=== PATIENT | male | born 1935 | race Caucasian/White ===

== ENCOUNTER 2022-05-09 12:05 | Outpatient (RCR) | payer MEDICARE, SELFPAY ==
--- NOTE | ~2022-05-09 | XR_ITS ---
EXAMINATION: XR CALCANEUS, RIGHT CLINICAL INFORMATION: Nonhealing wound. Assess for osteomyelitis. COMPARISON: None available. TECHNIQUE: The right calcaneus is imaged and Albrecht and lateral views for a total of 2 views. FINDINGS: There is normal bony mineralization. No focal bony destructive process or periostitis. There is a posterior and small plantar calcaneal spurs. There is no acute or healing fracture. No gas tracking in soft tissue planes on lateral view. There is probable soft tissue dressing overlying the posterior inferior heel. XR/XR calcaneus RT min 2V IMPRESSION: - No focal bony destructive process or periostitis.
== END 2022-10-02 16:00 | disposition home or self-care (01) ==
LOC: HO.WCC 12:05
PROVIDERS: PCP Family Medicine; Visit Provider Physician Assistant
DX: E11.621 Type 2 diabetes mellitus with foot ulcer (principal); E11.51 Type 2 diabetes mellitus with diabetic peripheral angiopathy without gangrene; L89.613 Pressure ulcer of right heel, stage 3; R60.0 Localized edema; E11.40 Type 2 diabetes mellitus with diabetic neuropathy, unspecified; I10 Essential (primary) hypertension; Z89.512 Acquired absence of left leg below knee; Z87.891 Personal history of nicotine dependence; Z92.3 Personal history of irradiation; Z92.21 Personal history of antineoplastic chemotherapy
CPT/HCPCS: 11042; 11045; 73650; 87070; 87073; 87076; 87205; 97597; 97598; 99213

== ENCOUNTER 2022-06-02 14:00 | Outpatient (REF) | payer MEDICARE, SELFPAY ==
--- NOTE | ~2022-06-02 | US_ITS ---
EXAMINATION: ANKLE-BRACHIAL INDEX SINGLE LEVEL PULSE VOLUME RECORDING ARTERIAL DUPLEX RIGHT LEG CLINICAL INFORMATION: Nonpressured chronic ulcer of other part of right foot with fat layer exposed. Diabetes. COMPARISON: None TECHNIQUE: Ankle-brachial index and PVR at the right ankle were obtained. Duplex Doppler of the right lower extremity arterial system was performed. FINDINGS: RIGHT: Ankle-brachial index: 1.0. However, the pressures measured greater than 200 mmHg consistent with calcified and noncompressible vessels. The NIKKI may not be reliable. PVR: Abnormal Common femoral: PSV 119 cm/s. Triphasic waveform. Deep femoral: PSV 29 cm/s. Monophasic waveform. Proximal superficial femoral: PSV 117 cm/s. Biphasic waveform. Mid superficial femoral: PSV 93 cm/s. Monophasic waveform. Distal superficial femoral: PSV 75 cm/s. Biphasic waveform. Popliteal: PSV 51 cm/s. Monophasic waveform. Posterior tibial: PSV 87 cm/s. Monophasic waveform. Peroneal: Not visible. US/US arterial duplex LE RT IMPRESSION: Ankle-brachial index is 1.0, however the pressures measured greater than 200 mmHg consistent with calcified noncompressible vessels making the NIKKI unreliable. The pulse volume recording is abnormal. There is hemodynamically significant femoropopliteal level disease by Doppler.
== END 2022-06-02 14:01 | disposition home or self-care (01) ==
LOC: HO.US 14:00
PROVIDERS: PCP Family Medicine; Visit Provider Physician Assistant
DX: E11.621 Type 2 diabetes mellitus with foot ulcer (principal); L97.512 Non-pressure chronic ulcer of other part of right foot with fat layer exposed
CPT/HCPCS: 93926

== ENCOUNTER 2022-09-25 16:57 | Inpatient (IN) | payer MEDICARE, SELFPAY ==
--- NOTE | 2022-09-25 | ECG_ITS ---
Test Reason : FEVER Blood Pressure : / mmHG Vent. Rate : 078 BPM Atrial Rate : 000 BPM P-R Int : 000 ms QRS Dur : 084 ms QT Int : 374 ms P-R-T Axes : 000 021 029 degrees QTc Int : 426 ms Atrial fibrillation Low voltage QRS Septal infarct , age undetermined Abnormal ECG No previous ECGs available Referred By: Generic ED Physician Electronically Signed By:
--- NOTE | ~2022-09-25 | US_ITS ---
EXAMINATION: NONINVASIVE ASSESSMENT OF THE RIGHT LOWER EXTREMITY DUPLEX. CLINICAL INFORMATION: Nonhealing wound COMPARISON: Arterial duplex on 06/02/2022 TECHNIQUE: duplex Doppler techniques with wave form analysis and measurement of velocities in the right common femoral, profunda femoral, superficial femoral, popliteal, tibial and peroneal arteries. The study was performed only at rest. FINDINGS: RIGHT LEG Common femoral artery: 175 cm/s, Multiphasic Profunda femoris artery: 104 cm/s, monophasic Superficial femoral artery (proximal): 121 cm/s, monophasic Superficial femoral artery (mid): 144 cm/s, monophasic Superficial femoral artery (distal): 90 cm/s, monophasic Proximal Popliteal artery: 99.3 cm/s, monophasic Mid posterior tibial artery: 52.9 cm/s, monophasic Incidental note is made of arrhythmia US/US arterial duplex LE RT IMPRESSION: 1. Monophasic flow throughout the right lower extremity suggesting inflow disease. 2. Elevated velocities in the common femoral artery and mid superficial femoral artery suggesting mild stenoses.
--- NOTE | ~2022-09-25 | US_ITS ---
EXAMINATION: US VENOUS ULTRASOUND WITH DOPPLER LOWER EXTREMITY, RIGHT CLINICAL INFORMATION: Pain. COMPARISON: None available. TECHNIQUE: Ultrasound of the deep veins is performed from the hip to the calf with compression sonography and color and pulse Doppler assessment. Spectral analysis with color-flow imaging is performed. FINDINGS: There is normal venous compression and respiratory variation and augmented flow. The visualized common femoral vein, superficial femoral vein, profunda femoral vein, popliteal vein, and the trifurcation region shows no evidence of deep venous thrombosis. The posterior tibial vein in the calf is normal. The peroneal vein is not seen. There is no significant popliteal fossa cyst. If the patient's symptoms persist, followup ultrasound in 5 days 7 days might be of value to exclude proximal propagation from a non-visualized calf vein. US/US venous duplex LE RT IMPRESSION: No DVT demonstrated in the right lower extremity.
--- NOTE | ~2022-09-25 | XR_ITS ---
EXAMINATION: XR CHEST CLINICAL INFORMATION: Hypoxia. COMPARISON: None available. TECHNIQUE: Frontal portable view of the chest was obtained. 6:21 PM FINDINGS: Lungs are clear. No pulmonary vascular congestion. There is no pleural effusion. The heart size is normal. The cardiac and mediastinal contours are normal. There are multilevel degenerative changes of dorsal spine. XR/XR chest 1V IMPRESSION: Unremarkable examination.
--- NOTE | ~2022-09-25 | XR_ITS ---
EXAMINATION: XR CALCANEUS, RIGHT CLINICAL INFORMATION: Evaluate for osteomyelitis. COMPARISON: 08/05/2022. TECHNIQUE: Lateral and axial views of the right calcaneus were obtained. FINDINGS: Large ulcer adjacent to the posterior and inferior surface of the calcaneus with associated cortical irregularity and bony lucency along the inferoposterior surface of the calcaneus, concerning for osteomyelitis. No displaced fractures. Extensive vascular calcifications. XR/XR calcaneus RT min 2V IMPRESSION: Large ulcer adjacent to the calcaneus with associated cortical irregularity and bony lucency along the inferoposterior surface of the calcaneus concerning for osteomyelitis. Further imaging with MRI could be obtained as clinically indicated.
[2022-09-25 17:09] VITALS: BP 134/54; BP 156/60; PULSE 85; PULSE 91; RESP 14; TEMP 38.1; O2SAT 92; BMI 27.3
[2022-09-25 17:27] VITALS: BP 113/49; PULSE 84; RESP 15; TEMP 38; O2SAT 95
[2022-09-25 18:20] LABS: Hematocrit 26.7 % (42.0-52.0); Hemoglobin 8.4 g/dl (14.0-18.0); Mean Corpuscular HGB Conc 31.5 g/dl (31.0-36.0); Mean Corpuscular Hemoglobin 26.4 pg (27.0-33.0); Mean Platelet Volume 8.9 fL (9.4-12.4); Platelet Count 354 X10*3/uL (160-400); Red Blood Count 3.18 X10*6/uL (4.60-5.80); Red Cell Distribution Width 14.6 % (11.0-16.0); White Blood Count 10.8 X10*3/uL (4.8-10.8)
[2022-09-25 18:28] LABS: INTERNATIONAL NORM RATIO 1.3 (0.9-1.1); Prothrombin Time 15.3 SEC (10.0-13.1)
[2022-09-25 18:33] LABS: Lactic Acid 1.1 mmol/L (0.5-2.0)
[2022-09-25 18:37] LABS: Alanine Aminotransferase 17 U/L (0-40); Albumin Level 3.3 g/dL (3.5-5.0); Alkaline Phosphatase 80 U/L (39-117); Anion Gap 13 (12-20); Aspartate Amino Transferase 23 U/L (5-37); Bilirubin Total 0.4 mg/dL (0.0-1.0); Blood Urea Nitrogen 25 mg/dL (9-16); Calcium 8.9 mg/dL (8.4-10.2); Carbon Dioxide 25 mmol/L (22-29); Chloride 102 mmol/L (96-108); Creatinine Clr Calc Pharmacy 56.9; Estimated Glomerular Filt Rate > 60; Glucose Random 121 mg/dL (60-115); Potassium 4.6 mmol/L (3.3-5.1); Sodium 135 mmol/L (135-145); Total Protein 7.1 g/dL (6.5-8.0)
--- NOTE | 2022-09-25 18:45 | ED_ITS ---
HPI - General Adult General Chief complaint: Wound/Laceration Stated complaint: INFECTED WOUND ON ANKLE Time Seen by Provider: 09/25/22 18:12 Source: patient, family (), RN notes reviewed and old records reviewed Limitations: no limitations History of Present Illness HPI narrative: 87-year-old male past medical history significant for diabetes, peripheral vascular disease, chronic right heel ulcer presents for evaluation of weakness Per the patient's he has had increasing weakness for last few days Patient was found have a temperature of 102.4? by EMS. The patient reports some pain to his right heel which she feels is chronic and unchanged There is some redness to the area and swelling around the area as well as foul-smelling drainage Patient's is concerned about UTI The patient reports that he feels well and does not know why he is in the hospital at this time He follows wound care for his right heel wound Related Data Home Medications Medication Instructions Recorded Confirmed atorvastatin 10 mg tablet 10 mg PO DAILY 09/25/22 09/25/22 clopidogrel 75 mg tablet 75 mg PO DAILY 09/25/22 09/25/22 collagenase clostridium histo. 250 1 appl topical DAILY 09/25/22 09/25/22 unit/gram topical ointment (Santyl) furosemide 20 mg tablet 20 mg PO DAILY 09/25/22 09/25/22 hydrocodone 10 mg-acetaminophen 1 tab PO QID PRN pain 09/25/22 09/25/22 325 mg tablet insulin aspart U-100 100 unit/mL See Protocol subcut TIDAC 09/25/22 09/25/22 (3 mL) subcutaneous pen (Novolog FlexPen U-100 Insulin aspart) insulin glargine-yfgn 100 unit/mL 6 unit subcut BEDTIME 09/25/22 09/25/22 (3 mL) subcutaneous pen (Semglee (insulin glargine-yfgn) Pen) metformin 1,000 mg tablet 1,000 mg PO BID 09/25/22 09/25/22 tamsulosin 0.4 mg capsule 0.4 mg PO DAILY 09/25/22 09/25/22 Allergies Allergy/AdvReac Type Severity Reaction Status Date / Time No Known Allergies Allergy Verified 09/25/22 17:49 Review of Systems Constitutional: Constitutional: Denies chills, Reports fever(s) and Reports weakness Cardiovascular: Cardiovascular: Denies chest pain and Denies dyspnea Respiratory: Respiratory: Denies cough and Denies dyspnea Gastrointestinal: Gastrointestinal: Denies abdominal pain, Denies diarrhea, Denies nausea and Denies vomiting Genitourinary: Genitourinary: Reports nocturia Musculoskeletal: Musculoskeletal: Denies back pain Integumentary/Breasts: Skin/Breast: Reports erythema, Reports skin ulcer, Reports sores and Reports wounds Neurologic: Reports weakness PMFSH Past Medical History Medical History BPH (benign prostatic hyperplasia) Chronic low back pain Hyperlipidemia Peripheral arterial disease Type 2 diabetes mellitus Social History Social History Household Members: Spouse Housing: Condominium Do you presently have visiting nurse or other home services: No Alcohol intake: current Alcohol intake frequency: holidays/special occasions only Patient Tobacco Use Status: Never used Tobacco Physical Exam ED Vital Signs: Vital Signs - 24 hr 09/25/22 17:09 09/25/22 17:27 09/25/22 19:38 Temperature 100.5 F H 100.4 F 98.3 F Pulse Rate 85 84 72 Respiratory Rate 14 15 16 Blood Pressure 134/54 L 113/49 L 168/69 H Pulse Oximetry 92 95 98 Oxygen Delivery Method Room Air Room Air Room Air BMI result Body Mass Index 27.3 Const General: healthy appearing, comfortable, no acute distress, alert and awake Nutritional Appearance: well nourished Orientation/consciousness: patient oriented x3 HENMT Head: Yes normocephalic and Yes atraumatic Eyes Eyelids: Yes eyelids normal Conjunctivae: conjunctivae normal Sclerae: sclerae normal Corneas: corneas normal Pupils: Equal, round and reactive pupils present EOM: EOMs intact bilaterally Neck Neck: Yes full ROM Resp Effort & Inspection: normal respiratory effort, able to speak in complete sentences and not labored Cardio Rate: regular rate Rhythm: regular rhythm GI Inspection: No distended Palpation (GI): Soft to palpation, not firm, Tenderness to palpation present (GI) in the RLQ and in the RUQ, no guarding and not rigid Auscultation: normoactive bowel sounds Skin Other: Patient has a large approximately 6 cm unstageable ulcer to the right calcaneus. It is unstageable due to large eschar with foul-smelling drainage. There is some surrounding erythema and edema to the right foot. There is some calf tenderness on the right Neuro General: patient oriented x3 Cranial nerves: Yes CN's II-XII intact bilaterally, Yes Equal, round and react tayler pupils present and Yes Bilaterally intact EOM present Cognition (Neuro): normal cognition Extrem Other: Left BKA Medications Administered Generic Name Dose Route Start Last Admin Trade Name Hai PRN Reason Stop Dose Admin Hydrocodone Bitart/Acetaminophen 1 tab 09/25/22 21:32 09/25/22 23:00 Hydrocodone Bit/Acetam 10/325 Tablet PO 1 tab QID PRN Administration Pain, Severe (Pain Scale 7-10) Heparin Sodium (Porcine) 5,000 unit 09/25/22 20:15 09/25/22 22:53 Heparin Sodium,Porcine 5,000 Unit/Ml Vial SUBCUT 5,000 unit Q12H RANDAL Administration Cefepime HCl 2 gm/ Sodium 50 mls @ 100 mls/hr 09/25/22 23:00 09/26/22 00:18 Chloride IV Infused Q12H RANDAL Infusion Insulin Human Lispro 0 unit 09/25/22 21:00 09/25/22 22:26 Insulin Lispro 100 Unit/Ml 3 Ml Vial SUBCUT Not Given QIDACHS [facility] Protocol Non-Formulary Medication 4 unit 09/25/22 21:45 09/25/22 23:00 Insulin Glargine-Yfgn [Semglee(Insulin Glarg-Yfgn)Pen] SUBCUT Not Given BEDTIME RANDAL Discontinued Medications Generic Name Dose Route Start Last Admin Trade Name Hai PRN Reason Stop Dose Admin Acetaminophen 975 mg 09/25/22 18:42 09/25/22 21:43 Acetaminophen 325 Mg Tablet PO 09/25/22 18:43 975 mg ONCE ONE Administration Hydrocodone Bitart/Acetaminophen 1 tab 09/25/22 20:06 09/25/22 22:50 Hydrocodone Bit/Acetam 10/325 Tablet PO 09/25/22 20:07 Not Given ONCE ONE Sodium Chloride 1,000 mls @ 999 mls/hr 09/25/22 18:45 09/26/22 00:06 Ns IV 09/25/22 19:45 Infused .Q1H1M RANDAL Infusion Vancomycin HCl 1,500 mg/ 500 mls @ 333.333 mls/hr 09/25/22 19:01 09/25/22 23:30 Sodium Chloride IV 09/25/22 20:30 Infused ONCE ONE Infusion Medical Decision Making Medical Decision Making MDM Narrative: 87-year-old male presents for evaluation of weakness. He is found have a fever by EMS which is confirmed in the ER 100.5. He will be treated with Tylenol and IV fluids. Workup pending to determine source. He has a chronic wound to his right heel with foul-smelling drainage and some edema, this could be the source infection. Will also get a UA, chest x-ray and viral panel. Patient denies any GI symptoms. He does have mild tenderness in the right mid abdomen from a previous surgery which he feels is chronic and unchanged. Differential Diagnosis Differential Diagnoses: The differential diagnosis associated with the presentation includes Sepsis Cellulitis Osteomyelitis Chronic wound UTI Pyelonephritis Pneumonia Viral syndrome Lab Data 09/25/22 18:11 09/25/22 18:11 Labs: Lab Results 09/25/22 09/25/22 09/25/22 Range/Units 18:11 18:11 18:12 WBC 10.8 (4.8-10.8) X10*3/uL RBC 3.18 L (4.60-5.80) X10*6/uL Hgb 8.4 L (14.0-18.0) g/dl Hct 26.7 L (42.0-52.0) % MCV 84.0 (80.0-98.0) fL MCH 26.4 L (27.0-33.0) pg MCHC 31.5 (31.0-36.0) g/dl RDW 14.6 (11.0-16.0) % Plt Count 354 (160-400) X10*3/uL MPV 8.9 L (9.4-12.4) fL Absolute Nucleated RBC 0.000 (0.0-0.012) X10*3/uL Nucleated RBC % (auto) 0.0 (0.0-0.2) /100WBC ESR (0-15) MM/HR PT (10.0-13.1) SEC INR (0.9-1.1) Sodium 135 (135-145) mmol/L Potassium 4.6 (3.3-5.1) mmol/L Chloride 102 (96-108) mmol/L Carbon Dioxide 25 (22-29) mmol/L Anion Gap 13 (12-20) BUN 25 H (9-16) mg/dL Creatinine 0.98 (0.5-1.4) mg/dL Estim Creat Clear Calc 56.9 Estimated GFR > 60 Random Glucose 121 H (60-115) mg/dL Lactic Acid 1.1 (0.5-2.0) mmol/L Calcium 8.9 (8.4-10.2) mg/dL Total Bilirubin 0.4 (0.0-1.0) mg/dL AST 23 (5-37) U/L ALT 17 (0-40) U/L Alkaline Phosphatase 80 (39-117) U/L C-Reactive Protein 11.87 H (< or = 0.50) mg/dL Total Protein 7.1 (6.5-8.0) g/dL Albumin 3.3 L (3.5-5.0) g/dL Urine Color Urine Appearance Urine pH (5.0-9.0) Ur Specific [place] (1.005-1.025) Urine Protein (Neg-Trace) mg/dL Urine Glucose (UA) (Negative) mg/dL Urine Ketones (Negative) mg/dL Urine Blood (Negative) Urine Nitrite (Negative) Ur Leukocyte Esterase (Negative) Urine RBC (0-2) /HPF Urine WBC (0-5) /HPF Ur Squamous Epith Cells (0-2) /HPF Urine Bacteria (None Seen) Hyaline Casts (0-2) /LPF Influenza Type A (PCR) (Negative) Influenza Type B (PCR) (Negative) RSV RNA Qual (PCR) (Negative) SARS-CoV-2 RNA (RT-PCR) (Negative) 09/25/22 09/25/22 09/25/22 Range/Units 18:12 18:54 19:52 WBC (4.8-10.8) X10*3/uL RBC (4.60-5.80) X10*6/uL Hgb (14.0-18.0) g/dl Hct (42.0-52.0) % MCV (80.0-98.0) fL MCH (27.0-33.0) pg MCHC (31.0-36.0) g/dl RDW (11.0-16.0) % Plt Count (160-400) X10*3/uL MPV (9.4-12.4) fL Absolute Nucleated RBC (0.0-0.012) X10*3/uL Nucleated RBC % (auto) (0.0-0.2) /100WBC ESR 105 H (0-15) MM/HR PT 15.3 H (10.0-13.1) SEC INR 1.3 H (0.9-1.1) Sodium (135-145) mmol/L Potassium (3.3-5.1) mmol/L Chloride (96-108) mmol/L Carbon Dioxide (22-29) mmol/L Anion Gap (12-20) BUN (9-16) mg/dL Creatinine (0.5-1.4) mg/dL Estim Creat Clear Calc Estimated GFR Random Glucose (60-115) mg/dL Lactic Acid (0.5-2.0) mmol/L Calcium (8.4-10.2) mg/dL Total Bilirubin (0.0-1.0) mg/dL AST (5-37) U/L ALT (0-40) U/L Alkaline Phosphatase (39-117) U/L C-Reactive Protein (< or = 0.50) mg/dL Total Protein (6.5-8.0) g/dL Albumin (3.5-5.0) g/dL Urine Color Yellow Urine Appearance Clear Urine pH 6.0 (5.0-9.0) Ur Specific [place] 1.010 (1.005-1.025) Urine Protein 100 (2+) H (Neg-Trace) mg/dL Urine Glucose (UA) Negative (Negative) mg/dL Urine Ketones Negative (Negative) mg/dL Urine Blood Trace H (Negative) Urine Nitrite Negative (Negative) Ur Leukocyte Esterase Negative (Negative) Urine RBC 0-2 (0-2) /HPF Urine WBC 0-5 (0-5) /HPF Ur Squamous Epith Cells 0-2 (0-2) /HPF Urine Bacteria None Seen (None Seen) Hyaline Casts 0-2 (0-2) /LPF Influenza Type A (PCR) (Negative) Influenza Type B (PCR) (Negative) RSV RNA Qual (PCR) (Negative) SARS-CoV-2 RNA (RT-PCR) (Negative) 09/25/22 Range/Units 19:52 WBC (4.8-10.8) X10*3/uL RBC (4.60-5.80) X10*6/uL Hgb (14.0-18.0) g/dl Hct (42.0-52.0) % MCV (80.0-98.0) fL MCH (27.0-33.0) pg MCHC (31.0-36.0) g/dl RDW (11.0-16.0) % Plt Count (160-400) X10*3/uL MPV (9.4-12.4) fL Absolute Nucleated RBC (0.0-0.012) X10*3/uL Nucleated RBC % (auto) (0.0-0.2) /100WBC ESR (0-15) MM/HR PT (10.0-13.1) SEC INR (0.9-1.1) Sodium (135-145) mmol/L Potassium (3.3-5.1) mmol/L Chloride (96-108) mmol/L Carbon Dioxide (22-29) mmol/L Anion Gap (12-20) BUN (9-16) mg/dL Creatinine (0.5-1.4) mg/dL Estim Creat Clear Calc Estimated GFR Random Glucose (60-115) mg/dL Lactic Acid (0.5-2.0) mmol/L Calcium (8.4-10.2) mg/dL Total Bilirubin (0.0-1.0) mg/dL AST (5-37) U/L ALT (0-40) U/L Alkaline Phosphatase (39-117) U/L C-Reactive Protein (< or = 0.50) mg/dL Total Protein (6.5-8.0) g/dL Albumin (3.5-5.0) g/dL Urine Color Urine Appearance Urine pH (5.0-9.0) Ur Specific [place] (1.005-1.025) Urine Protein (Neg-Trace) mg/dL Urine Glucose (UA) (Negative) mg/dL Urine Ketones (Negative) mg/dL Urine Blood (Negative) Urine Nitrite (Negative) Ur Leukocyte Esterase (Negative) Urine RBC (0-2) /HPF Urine WBC (0-5) /HPF Ur Squamous Epith Cells (0-2) /HPF Urine Bacteria (None Seen) Hyaline Casts (0-2) /LPF Influenza Type A (PCR) NEGATIVE (Negative) Influenza Type B (PCR) NEGATIVE (Negative) RSV RNA Qual (PCR) NEGATIVE (Negative) SARS-CoV-2 RNA (RT-PCR) NEGATIVE (Negative) Discharge Plan Discharge Clinical Impression: Nonhealing ulcer of heel Osteomyelitis of right foot Qualifiers: Osteomyelitis type: other acute Qualified Code(s): M86.171 - Other acute osteomyelitis, right ankle and foot Patient Disposition: Admitted As Inpatient Interventions: Admission Worksheet (ED) Last Done: 09/25/22 22:14 Discharge Date/Time: 09/25/22 22:05
[2022-09-25 19:01] LABS: Appearance Urine Clear; Color Urine Yellow; Glucose Urine UA Negative (Negative); Leukocyte Esterase Urine Negative (Negative); Nitrite Urine Negative (Negative); UMIC TRIGGER UACC YES; Urine Blood Trace (Negative); Urine Ketones Negative (Negative); Urine Protein 100 (2+) mg/dL (Neg-Trace)
[2022-09-25 19:06] LABS: Bacteria Urine None Seen (None Seen); Hyaline Casts Urine 0-2 /LPF (0-2); RBC Urine 0-2 /HPF (0-2); Squamous Epithelial Cell Urine 0-2 /HPF (0-2); WBC Urine 0-5 /HPF (0-5)
[2022-09-25 19:38] VITALS: BP 168/69; PULSE 72; RESP 16; TEMP 36.8; O2SAT 98
[2022-09-25 19:43] LABS: C Reactive Protein 11.87 mg/dL (< or = 0.50)
--- NOTE | 2022-09-25 19:58 | MHC.EDTECH ---
ESR BLOOD DRAWN RSV/FLU/SARS SWAB WARM BLANKET GIVEN ,VITALS SIGN TAKEN ,PATIENT IN GOOD SPRITS AND IS RESTING QUIETLY IN BED . COLLECTED AND SENT TO LAB ,PATIENT BELONGINGS LIST DONE ,PATIENT VOID 300 ML IN URINAL ,
--- NOTE | 2022-09-25 20:15 | P.HPHOSP_ITS ---
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 He states he is here at his 's request. He has been following with [facility] wound clinic for the heel. Per EMS patient was febrile to 102.5. On arrival, febrile to 100.5, vitals otherwise stable. There is no leukocytosis, normocytic anemia with H/H 8.4/26.7%. Renal function normal, electrolyte levels normal. Lactic acid 1.1. CRP 11.87, ESR pending. Urinalysis significant for 2+ protein, otherwise unremarkable. Chest x-ray negative for acute cardiopulmonary abnormality. X-ray of the right foot shows large ulcer adjacent to the calcaneus with associated cortical irregularity and bony lucency along the inferior per steer surface of the calcaneus concerning for osteomyelitis. Venous doppler pending. Review of Systems Review of Systems: General: No fevers, malaise, unintentional weight loss. +generalized weakness HEENT: No blurred vision, diplopia. No sore throat, nasal congestion, r hinorrhea, sinus pain, ear pain Cardiovascular: No chest pain, palpitations, or leg edema Respiratory: No shortness of breath, wheezing, cough GI: No abdominal pain, nausea, vomiting, diarrhea, constipation, melena, hematochezia : No dysuria, hematuria, increased urinary frequency, decreased urinary output MSK: No myalgia, back pain Neuro: No headaches, weakness, paresthesias Skin: No rashes. +chronic R foot ulcer [facility] Medical History BPH (benign prostatic hyperplasia) Chronic low back pain Hyperlipidemia Peripheral arterial disease Type 2 diabetes mellitus Social History Alcohol intake: current Alcohol intake frequency: holidays/special occasions only Smoked in Last 30 Days: No Use of substances other than those prescribed or required for medical reasons: No Advance Directives: No Advance Directives Information Provided: No Meds Allergies Allergy/AdvReac Type Severity Reaction Status Date / Time No Known Allergies Allergy Verified 09/25/22 17:49 Active Medications: Current Medications Acetaminophen (Acetaminophen 325 Mg Tablet) 650 mg PO Q6H PRN PRN Reason: Pain, Mild (Pain Scale 1-3) Dextrose (Dextrose 50 % 25 Gm/50 Ml Syringe) 25 gm IVPUSH Q15M PRN; Protocol PRN Reason: per Hypoglycemia Standing Ord. Docusate Sodium (Docusate Sodium 100 Mg Capsule) 100 mg PO DAILY PRN PRN Reason: Constipation Glucose (Glucose Gel 15 Gm Gel..Gram.) 15 gm PO Q15M PRN; Protocol PRN Reason: per Hypoglycemia Standing Ord. Heparin Sodium (Porcine) (Heparin Sodium,Porcine 5,000 Unit/Ml Vial) 5,000 unit SUBCUT Q12H RANDAL Vancomycin HCl 1,500 mg/ (Sodium Chloride) 500 mls @ 333.333 mls/hr IV ONCE ONE Stop: 09/25/22 20:30 Cefepime HCl 2 gm/ Sodium (Chloride) 50 mls @ 100 mls/hr IV Q8H RANDAL Insulin Human Lispro (Insulin Lispro 100 Unit/Ml 3 Ml Vial) 0 unit SUBCUT QIDACHS RANDAL; Protocol Ondansetron HCl (Ondansetron Hcl 4 Mg/2 Ml Vial) 4 mg IVPUSH Q8H PRN PRN Reason: Nausea and Vomiting Pharmacy Consult (Consult Rx Perform Med Rec) 1 each MISCELLANE ONCE PRN PRN Reason: Consult order Pharmacy Consult (Consult Rx Vancomycin Dosing) 1 each MISCELLANE DAILY PRN PRN Reason: Consult order Home Medications Medication Instructions Recorded Confirmed Last Taken Type atorvastatin 10 mg tablet 10 mg PO DAILY 09/25/22 09/25/22 09/25/22 History clopidogrel 75 mg tablet 75 mg PO DAILY 09/25/22 09/25/22 09/25/22 History collagenase clostridium histo. 250 1 appl topical DAILY 09/25/22 09/25/22 Un known History unit/gram topical ointment (Santyl) furosemide 20 mg tablet 20 mg PO DAILY 09/25/22 09/25/22 09/25/22 History hydrocodone 10 mg-acetaminophen 1 tab PO QID PRN pain 09/25/22 09/25/22 09/25/22 14:00 History 325 mg tablet insulin aspart U-100 100 unit/mL See Protocol subcut TIDAC 09/25/22 09/25/22 09/25/22 History (3 mL) subcutaneous pen (Novolog FlexPen U-100 Insulin aspart) insulin glargine-yfgn 100 unit/mL 6 unit subcut BEDTIME 09/25/22 09/25/22 07/11/29 History (3 mL) subcutaneous pen (Semglee (insulin glargine-yfgn) Pen) metformin 1,000 mg tablet 1,000 mg PO BID 09/25/22 09/25/22 09/25/22 History tamsulosin 0.4 mg capsule 0.4 mg PO DAILY 09/25/22 09/25/22 09/25/22 History Physical Exam Vital Signs and Narrative: Vital Signs: Last Vital Signs Temp 98.3 F 09/25/22 19:38 Pulse 72 09/25/22 19:38 Resp 16 09/25/22 19:38 BP 168/69 H 09/25/22 19:38 Pulse Ox 98 09/25/22 19:38 O2 Del Method Room Air 09/25/22 19:38 BMI result Body Mass Index 27.3 Constitutional - Awake and Alert, No apparent distress Eyes - PERRLA, EOMI Cardiovascular - S1S2, RRR, 2+ RLE edema Respiratory - Normal lung expansion, Normal respiratory effort, No respiratory distress, CTA bilaterally Gastrointestinal - NT / ND; +BS; No rebound or guarding - No CVA tenderness Extremities - no calf tenderness bilaterally, no swelling Musculoskeletal -s/p left BKA Skin - Warm/Dry. Large chronic unstageable necrotic ulcer right heel with small area of granulation tissue as well as eschar and purulent drainage Neurological - Alert & oriented x3 Psychological - Appropriate affect Results Labs 09/25/22 18:11 09/25/22 18:11 Labs: Laboratory Results - last 24 hr 09/25/22 09/25/22 09/25/22 18:11 18:11 18:12 MCV 84.0 MCH 26.4 L MCHC 31.5 RDW 14.6 Plt Count 354 MPV 8.9 L Absolute Nucleated RBC 0.000 Nucleated RBC % (auto) 0.0 PT INR Anion Gap 13 Estim Creat Clear Calc 56.9 Estimated GFR > 60 Random Glucose 121 H Lactic Acid 1.1 Calcium 8.9 Total Bilirubin 0.4 AST 23 ALT 17 Alkaline Phosphatase 80 C-Reactive Protein 11.87 H Total Protein 7.1 Albumin 3.3 L Urine Color Urine Appearance Urine pH Ur Specific [place] Urine Protein Urine Glucose (UA) Urine Ketones Urine Blood Urine Nitrite Ur Leukocyte Esterase Urine RBC Urine WBC Ur Squamous Epith Cells Urine Bacteria Hyaline Casts 09/25/22 09/25/22 18:12 18:54 MCV MCH MCHC RDW Plt Count MPV Absolute Nucleated RBC Nucleated RBC % (auto) PT 15.3 H INR 1.3 H Anion Gap Estim Creat Clear Calc Estimated GFR Random Glucose Lactic Acid Calcium Total Bilirubin AST ALT Alkaline Phosphatase C-Reactive Protein Total Protein Albumin Urine Color Yellow Urine Appearance Clear Urine pH 6.0 Ur Specific [place] 1.010 Urine Protein 100 (2+) H Urine Glucose (UA) Negative Urine Ketones Negative Urine Blood Trace H Urine Nitrite Negative Ur Leukocyte Esterase Negative Urine RBC 0-2 Urine WBC 0-5 Ur Squamous Epith Cells 0-2 Urine Bacteria None Seen Hyaline Casts 0-2 Imaging Radiologist's Impressions: Impressions Calcaneus X-Ray 09/25/22 18:31 IMPRESSION: Large ulcer adjacent to the calcaneus with associated cortical irregularity and bony lucency along the inferoposterior surface of the calcaneus concerning for osteomyelitis. Further imaging with MRI could be obtained as clinically indicated. Chest X-Ray 09/25/22 18:31 IMPRESSION: Unremarkable examination. 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 #Infected chronic unstageable ulcer right heel with necrosis and osteomyelitis of the calcaneus -likely secondary to peripheral arterial disease complicated by type 2 diabetes -arterial duplex RLE ordered -IV vanco and cefepime (initiated 09/25) -vascular surgery consult -Infectious Disease consult -no leukocytosis, vital stable, no sepsis -follow CBC, blood cultures # insulin-dependent type 2 diabetes -hemoglobin A1c pending -dose adjust basal insulin -Humalog on sliding scale -diabetic diet -hold oral antihyperglycemics # peripheral artery disease -as above -continue Plavix, statin # chronic low back pain s/p lumbar fusion -continue Vicodin # BPH -continue tamsulosin #Normocytic anemia -suspect chronic, denies bleeding -H/H above transfusion threshold -Follow CBC DVT prophylaxis-heparin Full code Patient requires inpatient stay at least 2 midnights for management of infected unstageable ulcer of the right heel with osteomyelitis of the calcaneus requiring IV antibiotics, ex for consultation, and possible amputation Time Spent With Patient Time: Total time managing care of this patient today ____ minutes. Quality Stroke Does the patient have a stroke diagnosis?: No VTE Prior VTE?: No VTE Risk Level:: Medical - moderate - high VTE Device Contraindication: Treatment Not Indicated VTE Drug Contraindication: N/A - Med Ordered
[2022-09-25 20:41] LABS: Influenza A PCR NEGATIVE (Negative); Influenza B PCR NEGATIVE (Negative); Resp Syncy Virus RNA Qual PCR NEGATIVE (Negative); SARS COV2 PCR INHOUSE NEGATIVE (Negative)
--- NOTE | 2022-09-25 21:03 | PHA.MEDREC ---
Pharmacy Consult ? Medication Reconciliation Pharmacy has completed the medication reconciliation. Spoke to pt spouse Dania [phone] and she reviewed med list with me. States pt is using santyl with wound care clinic alternating with alginate dressing. Says his insulin is novolog sliding scale with meals tid and semglee at bedtime based on sugars but usual dose is 6-8 units.
[2022-09-25 21:27] LABS: Erythrocyte Sedimentation Rate 105 MM/HR (0-15)
[2022-09-25 21:30] VITALS: BP 181/90; PULSE 72; RESP 16; TEMP 36.9; O2SAT 95
[2022-09-25 21:37] LABS: Glucose, Whole Blood 124 mg/dL (60-115)
[2022-09-25] MEDS: vancomycin HCL 1,500 MG in 0.9 % Sodium Chloride 500 ML 333.33 MG IV (21:43)
[2022-09-25] MEDS: Acetaminophen 325 MG TABLET 975 MG PO (21:43)
[2022-09-25 21:59] VITALS: BP 175/77; PULSE 78; RESP 16; TEMP 36.6; O2SAT 97
[2022-09-25 22:10] VITALS: BMI 29.0
[2022-09-25] MEDS: Heparin Sodium,Porcine 5,000 UNIT/ML VIAL 5000 UNIT SUBCUT (22:53)
[2022-09-25] MEDS: 0.9 % Sodium Chloride 1,000 ML 999 ML IV (22:55)
[2022-09-25] MEDS: cefEPime HCl 2 GM in 0.9 % Sodium Chloride 50 ML IV (23:33)
[2022-09-26] MEDS: oxyCODONE HCl Immed Release 5 MG TABLET 10 MG PO (02:23)
[2022-09-26 03:32] VITALS: BP 160/69; PULSE 63; RESP 16; TEMP 36; O2SAT 97
[2022-09-26 06:20] LABS: MANUAL DIFF FLAG NO
[2022-09-26 06:23] LABS: Basophils Percent Auto 0.4 % (0-2); Eosinophils Absolute Auto 0.3 X10*3/uL (0.0-0.4); Eosinophils Percent Auto 3.2 % (0-4); Hematocrit 29.2 % (42.0-52.0); Imm Gran Abs Auto 0.04 X10*3/uL (0.00-0.03); Imm Gran Pct Auto 0.4 % (0.0-0.4); Lymphocytes Absolute Auto 0.7 X10*3/uL (1.2-4.9); Mean Corpuscular HGB Conc 30.8 g/dl (31.0-36.0); Mean Corpuscular Volume 87.7 fL (80.0-98.0); Mean Platelet Volume 9.3 fL (9.4-12.4); Monocytes Absolute Auto 0.9 X10*3/uL (0.1-1.2); Monocytes Percent Auto 9.6 % (2-11); Neutrophils Absolute Auto 7.1 x10*3/uL (2.0-8.3); Neutrophils Percent Auto 78.4 % (45-73); Platelet Count 355 X10*3/uL (160-400); Red Blood Count 3.33 X10*6/uL (4.60-5.80); Red Cell Distribution Width 14.7 % (11.0-16.0); White Blood Count 9.1 X10*3/uL (4.8-10.8)
[2022-09-26 06:42] LABS: Anion Gap 13 (12-20); Blood Urea Nitrogen 21 mg/dL (9-16); Calcium 9.2 mg/dL (8.4-10.2); Carbon Dioxide 24 mmol/L (22-29); Chloride 105 mmol/L (96-108); Estimated Glomerular Filt Rate > 60; Glucose Random 125 mg/dL (60-115); Potassium 4.8 mmol/L (3.3-5.1); Sodium 137 mmol/L (135-145)
[2022-09-26 07:23] LABS: Estimated Average Glucose 154 mg/dL
[2022-09-26 07:38] LABS: Glucose, Whole Blood 121 mg/dL (60-115)
[2022-09-26 07:46] VITALS: BP 160/70; PULSE 76; RESP 16; TEMP 36.4; O2SAT 94
[2022-09-26] MEDS: vancomycin HCL 750 MG in 0.9 % Sodium Chloride 250 ML 265 MG IV ×2 (08:35→22:36)
[2022-09-26] MEDS: Atorvastatin Calcium 10 MG TABLET PO (08:35)
[2022-09-26] MEDS: Heparin Sodium,Porcine 5,000 UNIT/ML VIAL 5000 UNIT SUBCUT ×2 (08:35→20:31)
[2022-09-26] MEDS: Tamsulosin HCL 0.4 MG CAPSULE PO (08:35)
[2022-09-26] MEDS: Furosemide 20 MG TABLET PO (08:35)
--- NOTE | 2022-09-26 08:56 | MHC.CM.PN ---
Addendum entered by Mona Rizo 09/26/22 11:17: Spouse has located copy of hcp, will bring in next time she comes in Original Note: [facility] DELIVERED LIVES WITH SPOUSE IN A [place]. USES W/C FOR [employer]JOR MOBILITY/SLIDE BOARD FOR TRANSFERS. MODIFIED BATHROOM. ATTENDS [facility] [place]. HAS USES [facility] IN PAST BUT NOT CURRENTLY. UNSURE IF WILL NEED A SNF OR VNA AT [place]. + HCP ( WILL LOOK FOR COPY, IF UNABLE TO LOCATE, CM WILL DO A NEW ONE) + COVID VAX X4. PCP DR. ECHEVARRIA DP: HOME WITH VNA VS SNF? AT [place]. WILL TRANSPORT VS BLS. CM WILL CONTINUE TO FOLLOW FOR DC NEEDS/PLAN
--- NOTE | 2022-09-26 09:19 | P.CONGS_ITS ---
History of Present Illness Consult details Consult date: 09/26/22 Reason for consult: wound care Narrative: Very pleasant 87-year-old gentleman who actually goes by the name of Rolly presents for evaluation regarding nonhealing foot ulcer of the right lower extremity. 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 He reports about 4 months ago this heel ulcer began. It continues to progress. [facility] It appeared to be infected and he was sent into the hospital for further workup and treatment. Review of Systems Review of Systems: Yes all other systems are reviewed and are negative Constitutional: Constitutional: Reports no additional constitutional complaints ENT: Reports Normal hearing present Cardiovascular: Cardiovascular: Denies chest pain, Denies chest pain at rest, Denies chest pain with activity and Denies pedal edema Respiratory: Respiratory: Denies cough Gastrointestinal: Gastrointestinal: Denies abdominal pain Musculoskeletal: Musculoskeletal: Denies abnormal gait, Denies muscle cramps and Denies radiating pain into limb Integumentary/Breasts: Skin/Breast: Denies skin ulcer and Denies wounds Neurologic: Reports Normal hearing present and Denies abnormal gait Psychiatric: Psychiatric: Reports no additional psychiatric complaints [facility] Past Medical History Medical History (Updated 09/26/22 @ 09:21 by Berry Gonzalez MD) BPH (benign prostatic hyperplasia) Chronic low back pain Hyperlipidemia Peripheral arterial disease Type 2 diabetes mellitus Social History Social History Household Members: Spouse [facility] Do you presently have visiting nurse or other home services: No Alcohol intake: current Alcohol intake frequency: holidays/special occasions only Patient Tobacco Use Status: Never used Tobacco service: No Meds Allergies Allergy/AdvReac Type Severity Reaction Status Date / Time No Known Allergies Allergy Verified 09/25/22 17:49 Active Medications: Current Medications Acetaminophen (Acetaminophen 325 Mg Tablet) 650 mg PO Q6H PRN PRN Reason: Pain, Mild (Pain Scale 1-3) Hydrocodone Bitart/Acetaminophen (Hydrocodone Bit/Acetam 10/325 Tablet) 1 tab PO QID PRN PRN Reason: Pain, Severe (Pain Scale 7-10) Last Admin: 09/26/22 08:41 Dose: 1 tab Atorvastatin Calcium (Atorvastatin Calcium 10 Mg Tablet) 10 mg PO DAILY [facility] Last Admin: 09/26/22 08:35 Dose: 10 mg Dextrose (Dextrose 50 % 25 Gm/50 Ml Syringe) 25 gm IVPUSH Q15M PRN; Protocol PRN Reason: per Hypoglycemia Standing Ord. Docusate Sodium (Docusate Sodium 100 Mg Capsule) 100 mg PO DAILY PRN PRN Reason: Constipation Furosemide (Furosemide 20 Mg Tablet) 20 mg PO DAILY [facility]; Protocol Last Admin: 09/26/22 08:35 Dose: 20 mg Glucose (Glucose Gel 15 Gm Gel..Gram.) 15 gm PO Q15M PRN; Protocol PRN Reason: per Hypoglycemia Standing Ord. Heparin Sodium (Porcine) (Heparin Sodium,Porcine 5,000 Unit/Ml Vial) 5,000 unit SUBCUT Q12H [facility] Last Admin: 09/26/22 08:35 Dose: 5,000 unit Cefepime HCl 2 gm/ Sodium (Chloride) 50 mls @ 100 mls/hr IV Q12H [facility] Last Infusion: 09/26/22 00:18 Dose: Infused Vancomycin HCl 750 mg/ Sodium (Chloride) 265 mls @ 265 mls/hr IV Q12H [facility] Last Admin: 09/26/22 08:35 Dose: 265 mls/hr Insulin Human Lispro (Insulin Lispro 100 Unit/Ml 3 Ml Vial) 0 unit SUBCUT QIDACHS [facility]; Protocol Last Admin: 09/26/22 08:26 Dose: Not Given Non-Formulary Medication (Insulin Glargine-Yfgn [Semglee(Insulin Glarg- Yfgn)Pen]) 4 unit SUBCUT BEDTIME [facility] Last Admin: 09/25/22 23:00 Dose: Not Given Ondansetron HCl (Ondansetron Hcl 4 Mg/2 Ml Vial) 4 mg IVPUSH Q8H PRN PRN Reason: Nausea and Vomiting Pharmacy Consult (Consult Rx Perform Med Rec) 1 each MISCELLANE ONCE PRN PRN Reason: Consult order Pharmacy Consult (Consult Rx Vancomycin Dosing) 1 each MISCELLANE DAILY PRN PRN Reason: Consult order Tamsulosin HCl (Tamsulosin Hcl 0.4 Mg Capsule) 0.4 mg PO DAILY [facility] Last Admin: 09/26/22 08:35 Dose: 0.4 mg Home Medications Medication Instructions Recorded Confirmed Last Taken Type atorvastatin 10 mg tablet 10 mg PO DAILY 09/25/22 09/25/22 09/25/22 History clopidogrel 75 mg tablet 75 mg PO DAILY 09/25/22 09/25/22 09/25/22 History collagenase clostridium histo. 250 1 appl topical DAILY 09/25/22 09/25/22 Unknown History unit/gram topical ointment (Santyl) furosemide 20 mg tablet 20 mg PO DAILY 09/25/22 09/25/22 09/25/22 History hydrocodone 10 mg-acetaminophen 1 tab PO QID PRN pain 09/25/22 09/25/22 09/25/22 14:00 History 325 mg tablet insulin aspart U-100 100 unit/mL See Protocol subcut TIDAC 09/25/22 09/25/22 09/25/22 History (3 mL) subcutaneous pen (Novolog FlexPen U-100 Insulin aspart) insulin glargine-yfgn 100 unit/mL 6 unit subcut BEDTIME 09/25/22 09/25/22 09/24/22 History (3 mL) subcutaneous pen (Semglee (insulin glargine-yfgn) Pen) metformin 1,000 mg tablet 1,000 mg PO BID 09/25/22 09/25/22 09/25/22 History tamsulosin 0.4 mg capsule 0.4 mg PO DAILY 09/25/22 09/25/22 09/25/22 History Physical Exam Vital Signs: Vital Signs: Last Vital Signs Temp 97.6 F 09/26/22 07:46 Pulse 76 09/26/22 07:46 Resp 16 09/26/22 07:46 BP 160/70 H 09/26/22 07:46 Pulse Ox 94 09/26/22 07:46 O2 Del Method Room Air 09/26/22 07:46 BMI result Body Mass Index 29.0 Const: General: cooperative, healthy appearing and comfortable Orientation/consciousness: oriented to person, oriented to place and oriented to time HEENT: Head: Yes normal to inspection Neck: Neck: Yes normal visual inspection Carotids: no bruits Chest: Chest palpation & inspection: normal inspection of the chest Resp: Effort & Inspection: normal respiratory effort and able to speak in complete sentences Auscultation: clear to auscultation bilaterally, no crackles, no rales, no rhonchi and no wheezes Cardio: Rate: regular rate Rhythm: regular rhythm Heart sounds: S1 normal heart sound present and S2 normal heart sound present Bruits: no carotid bruits Peripheral pulses: Peripheral pulses 2+ throughout GI: Inspection: Yes normal to inspection Skin: Other: Right heel approximately an 8 cm opening with foul odor associated with it, no good granulation tissue bed. Left BKA well-healed Wounds: no wounds Hair: normal Neuro: General: oriented to person, oriented to place and oriented to time Cranial nerves: Yes CN's II-XII intact bilaterally and Yes Normal hearing present Cognition (Neuro): normal cognition Motor exam (neuro): 5/5 motor strength present throughout Extrem: Other: venous exam: No significant superficial varicosities or spider telangiectasias, minimal edema General: No clubbing, No cyanosis and No edema Psych: Appearance: grossly normal Mental Status: mental status grossly normal Speech and movement: Normal speech and movement present Results Labs 09/26/22 06:15 09/26/22 06:15 Labs: Abnormal lab results 09/25/22 09/25/22 09/25/22 Range/Units 18:11 18:11 18:12 RBC 3.18 L (4.60-5.80) X10*6/uL Hgb 8.4 L (14.0-18.0) g/dl Hct 26.7 L (42.0-52.0) % MCH 26.4 L (27.0-33.0) pg MCHC (31.0-36.0) g/dl MPV 8.9 L (9.4-12.4) fL Neut % (Auto) (45-73) % Lymph % (Auto) (20-40) % Lymph # (Auto) (1.2-4.9) X10*3/uL Abs Immat Gran (auto) (0.00-0.03) X10*3/uL ESR (0-15) MM/HR PT 15.3 H (10.0-13.1) SEC INR 1.3 H (0.9-1.1) BUN 25 H (9-16) mg/dL POC Glucose (60-115) mg/dL Random Glucose 121 H (60-115) mg/dL C-Reactive Protein 11.87 H (< or = 0.50) mg/dL Albumin 3.3 L (3.5-5.0) g/dL Urine Protein (Neg-Trace) mg/dL Urine Blood (Negative) 09/25/22 09/25/22 09/25/22 Range/Units 18:54 19:52 21:29 RBC (4.60-5.80) X10*6/uL Hgb (14.0-18.0) g/dl Hct (42.0-52.0) % MCH (27.0-33.0) pg MCHC (31.0-36.0) g/dl MPV (9.4-12.4) fL Neut % (Auto) (45-73) % Lymph % (Auto) (20-40) % Lymph # (Auto) (1.2-4.9) X10*3/uL Abs Immat Gran (auto) (0.00-0.03) X10*3/uL ESR 105 H (0-15) MM/HR PT (10.0-13.1) SEC INR (0.9-1.1) BUN (9-16) mg/dL POC Glucose 124 H (60-115) mg/dL Random Glucose (60-115) mg/dL C-Reactive Protein (< or = 0.50) mg/dL Albumin (3.5-5.0) g/dL Urine Protein 100 (2+) H (Neg-Trace) mg/dL Urine Blood Trace H (Negative) 09/26/22 09/26/22 09/26/22 Range/Units 06:15 06:15 07:33 RBC 3.33 L (4.60-5.80) X10*6/uL Hgb 9.0 L (14.0-18.0) g/dl Hct 29.2 L (42.0-52.0) % MCH (27.0-33.0) pg MCHC 30.8 L (31.0-36.0) g/dl MPV 9.3 L (9.4-12.4) fL Neut % (Auto) 78.4 H (45-73) % Lymph % (Auto) 8.0 L (20-40) % Lymph # (Auto) 0.7 L (1.2-4.9) X10*3/uL Abs Immat Gran (auto) 0.04 H (0.00-0.03) X10*3/uL ESR (0-15) MM/HR PT (10.0-13.1) SEC INR (0.9-1.1) BUN 21 H (9-16) mg/dL POC Glucose 121 H (60-115) mg/dL Random Glucose 125 H (60-115) mg/dL C-Reactive Protein (< or = 0.50) mg/dL Albumin (3.5-5.0) g/dL Urine Protein (Neg-Trace) mg/dL Urine Blood (Negative) Short CBC 09/25/22 09/26/22 Range/Units 18:11 06:15 WBC 10.8 9.1 (4.8-10.8) X10*3/uL Hgb 8.4 L 9.0 L (14.0-18.0) g/dl Hct 26.7 L 29.2 L (42.0-52.0) % Plt Count 354 355 (160-400) X10*3/uL BMP 09/25/22 09/26/22 18:11 06:15 Sodium 135 137 Potassium 4.6 4.8 Chloride 102 105 Carbon Dioxide 25 24 BUN 25 H 21 H Creatinine 0.98 0.96 Calcium 8.9 9.2 Liver Function 09/25/22 Range/Units 18:11 Total Bilirubin 0.4 (0.0-1.0) mg/dL AST 23 (5-37) U/L ALT 17 (0-40) U/L Alkaline Phosphatase 80 (39-117) U/L Albumin 3.3 L (3.5-5.0) g/dL Urine 09/25/22 Range/Units 18:54 Urine Color Yellow Urine Appearance Clear Urine pH 6.0 (5.0-9.0) Ur Specific Stout 1.010 (1.005-1.025) Urine Protein 100 (2+) H (Neg-Trace) mg/dL Urine Glucose (UA) Negative (Negative) mg/dL All other labs normal. Imaging Additional studies: Noninvasive arterial testing reviewed and concern of SFA disease on down. Assessment and Plan (1) Osteomyelitis of right foot: Qualifiers: Osteomyelitis type: other acute Qualified Code(s): M86.171 - Other acute osteomyelitis, right ankle and foot Status: Acute In short patient has nonhealing right calcaneus ulcer. It is exposed bone. Due to the amount of tissue destruction and bony destruction I do not think this is a salvage type situation. Would like to try some antibiotics. Noninvasive testing also demonstrates poor arterial supply as well. Will plan for IV antibiotics to see if some of this improves. If not patient will require a BKA. This was discussed with the patient so he is aware of the potential high risk of BKA. Thank you for allowing us to participate in his care. If there are questions or concerns please do not hesitate to contact us. (2) Peripheral arterial disease: Status: Acute Time Spent With Patient Time: Total time managing care of this patient today ____ minutes. Procedures Date of Service Date of Service: 09/26/22
--- NOTE | 2022-09-26 10:20 | MHC.CLN ---
NUTRITION CONSULT FOR NON HEALING ULCER RIGHT HEAL. REVIEWED WOUND DOCUMENTATION. NON HEALING RIGHT HEEL ULCER LIKELY DUE TO PERIPHERAL ARTERY DISEASE, COMPLICATED BY DM. COCCYX WITH REDNESS. NO ADDITIONAL NUTRITION INTERVENTIONS AT THIS TIME.
[2022-09-26] MEDS: cefEPime HCl 2 GM in 0.9 % Sodium Chloride 50 ML IV (11:00)
[2022-09-26 11:17] LABS: Glucose, Whole Blood 189 mg/dL (60-115)
[2022-09-26] MEDS: Insulin Lispro 100 UNIT/ML 3 ML VIAL SUBCUT ×3 (11:48→20:31)
--- NOTE | 2022-09-26 13:15 | P.PNIM_ITS ---
Subjective Subjective Date of Service: 09/26/22 Interval History: seen and examined this morning follow up for nonhealing foot wound denies fever or chills at this time Review of Systems Review of Systems: Yes all other systems are reviewed and are negative Constitutional Constitutional: Denies chills and Denies fever(s) Cardiovascular Cardiovascular: Denies dyspnea Respiratory Respiratory: Denies cough and Denies dyspnea Gastrointestinal Gastrointestinal: Denies abdominal pain, Denies diarrhea, Denies nausea and Denies vomiting Physical Exam Vital Signs: Vital Signs: Last Vital Signs Temp 97.6 F 09/26/22 07:46 Pulse 76 09/26/22 07:46 Resp 16 09/26/22 07:46 BP 160/70 H 09/26/22 07:46 Pulse Ox 94 09/26/22 07:46 O2 Del Method Room Air 09/26/22 07:46 BMI result Body Mass Index 29.0 Const: General: cooperative, comfortable, alert and awake Nutritional Appearance: average body habitus Orientation/consciousness: patient oriented x3 Resp: Effort & Inspection: normal respiratory effort, able to speak in complete sentences, no respiratory distress and no use of accessory muscles Auscultation: clear to auscultation bilaterally Cardio: Rate: regular rate Heart sounds: S1 normal heart sound present and S2 normal heart sound present GI: Inspection: No distended Palpation (GI): Soft to palpation and nontender Neuro: General: patient oriented x3 and CN's II-XI intact bilaterally Extrem: General: Yes no pedal edema Objective Data Active Medications Acetaminophen (Acetaminophen 325 Mg Tablet) 650 mg PO Q6H PRN PRN Reason: Pain, Mild (Pain Scale 1-3) Hydrocodone Bitart/Acetaminophen (Hydrocodone Bit/Acetam 10/325 Tablet) 1 tab PO QID PRN PRN Reason: Pain, Severe (Pain Scale 7-10) Last Admin: 09/26/22 08:41 Dose: 1 tab Documented By: NATHANAEL Atorvastatin Calcium (Atorvastatin Calcium 10 Mg Tablet) 10 mg PO DAILY [facility] Last Admin: 09/26/22 08:35 Dose: 10 mg Documented By: NATHANAEL Dextrose (Dextrose 50 % 25 Gm/50 Ml Syringe) 25 gm IVPUSH Q15M PRN; Protocol PRN Reason: per Hypoglycemia Standing Ord. Docusate Sodium (Docusate Sodium 100 Mg Capsule) 100 mg PO DAILY PRN PRN Reason: Constipation Furosemide (Furosemide 20 Mg Tablet) 20 mg PO DAILY [facility]; Protocol Last Admin: 09/26/22 08:35 Dose: 20 mg Documented By: NATHANAEL Glucose (Glucose Gel 15 Gm Gel..Gram.) 15 gm PO Q15M PRN; Protocol PRN Reason: per Hypoglycemia Standing Ord. Heparin Sodium (Porcine) (Heparin Sodium,Porcine 5,000 Unit/Ml Vial) 5,000 unit SUBCUT Q12H [facility] Last Admin: 09/26/22 08:35 Dose: 5,000 unit Documented By: NATHANAEL Cefepime HCl 2 gm/ Sodium (Chloride) 50 mls @ 100 mls/hr IV Q12H [facility] Last Infusion: 09/26/22 11:47 Dose: 0 mls/hr Documented By: NATHANAEL Vancomycin HCl 750 mg/ Sodium (Chloride) 265 mls @ 265 mls/hr IV Q12H [facility] Last Infusion: 09/26/22 10:04 Dose: 0 mls/hr Documented By: NATHANAEL Insulin Human Lispro (Insulin Lispro 100 Unit/Ml 3 Ml Vial) 0 unit SUBCUT QIDACHS [facility]; Protocol Last Admin: 09/26/22 11:48 Dose: 2 unit Documented By: NATHANAEL Non-Formulary Medication (Insulin Glargine-Yfgn [Semglee(Insulin Glarg- Yfgn)Pen]) 4 unit SUBCUT BEDTIME [facility] Last Admin: 09/25/22 23:00 Dose: Not Given Documented By: IVELISSE Non-Admin Reason: per pharmacy, changing to lantus Ondansetron HCl (Ondansetron Hcl 4 Mg/2 Ml Vial) 4 mg IVPUSH Q8H PRN PRN Reason: Nausea and Vomiting Pharmacy Consult (Consult Rx Perform Med Rec) 1 each MISCELLANE ONCE PRN PRN Reason: Consult order Pharmacy Consult (Consult Rx Vancomycin Dosing) 1 each MISCELLANE DAILY PRN PRN Reason: Consult order Tamsulosin HCl (Tamsulosin Hcl 0.4 Mg Capsule) 0.4 mg PO DAILY [facility] Last Admin: 09/26/22 08:35 Dose: 0.4 mg Documented By: NATHANAEL Labs 09/26/22 06:15 09/26/22 06:15 Labs: Laboratory Results - last 24 hr 09/25/22 09/25/22 09/25/22 18:11 18:11 18:11 MCV 84.0 MCH 26.4 L MCHC 31.5 RDW 14.6 Plt Count 354 MPV 8.9 L Immature Gran % (Auto) Neut % (Auto) Lymph % (Auto) Mckinley % (Auto) Eos % (Auto) Baso % (Auto) Lymph # (Auto) Mckinley # (Auto) Eos # (Auto) Baso # (Auto) Abs Immat Gran (auto) Absolute Neuts (auto) Absolute Nucleated RBC 0.000 Nucleated RBC % (auto) 0.0 ESR PT INR Anion Gap 13 Estim Creat Clear Calc 56.9 Estimated GFR > 60 POC Glucose Random Glucose 121 H Estimat Average Glucose 154 Hemoglobin A1c % 7.0 Lactic Acid Calcium 8.9 Total Bilirubin 0.4 AST 23 ALT 17 Alkaline Phosphatase 80 C-Reactive Protein 11.87 H Total Protein 7.1 Albumin 3.3 L Urine Color Urine Appearance Urine pH Ur Specific Jeremiah Urine Protein Urine Glucose (UA) Urine Ketones Urine Blood Urine Nitrite Ur Leukocyte Esterase Urine RBC Urine WBC Ur Squamous Epith Cells Urine Bacteria Hyaline Casts Influenza Type A (PCR) Influenza Type B (PCR) RSV RNA Qual (PCR) SARS-CoV-2 RNA (RT-PCR) 09/25/22 09/25/22 09/25/22 18:12 18:12 18:54 MCV MCH MCHC RDW Plt Count MPV Immature Gran % (Auto) Neut % (Auto) Lymph % (Auto) Mckinley % (Auto) Eos % (Auto) Baso % (Auto) Lymph # (Auto) Mckinley # (Auto) Eos # (Auto) Baso # (Auto) Abs Immat Gran (auto) Absolute Neuts (auto) Absolute Nucleated RBC Nucleated RBC % (auto) ESR PT 15.3 H INR 1.3 H Anion Gap Estim Creat Clear Calc Estimated GFR POC Glucose Random Glucose Estimat Average Glucose Hemoglobin A1c % Lactic Acid 1.1 Calcium Total Bilirubin AST ALT Alkaline Phosphatase C-Reactive Protein Total Protein Albumin Urine Color Yellow Urine Appearance Clear Urine pH 6.0 Ur Specific Jeremiah 1.010 Urine Protein 100 (2+) H Urine Glucose (UA) Negative Urine Ketones Negative Urine Blood Trace H Urine Nitrite Negative Ur Leukocyte Esterase Negative Urine RBC 0-2 Urine WBC 0-5 Ur Squamous Epith Cells 0-2 Urine Bacteria None Seen Hyaline Casts 0-2 Influenza Type A (PCR) Influenza Type B (PCR) RSV RNA Qual (PCR) SARS-CoV-2 RNA (RT-PCR) 09/25/22 09/25/22 09/25/22 19:52 19:52 21:29 MCV MCH MCHC RDW Plt Count MPV Immature Gran % (Auto) Neut % (Auto) Lymph % (Auto) Mckinley % (Auto) Eos % (Auto) Baso % (Auto) Lymph # (Auto) Mckinley # (Auto) Eos # (Auto) Baso # (Auto) Abs Immat Gran (auto) Absolute Neuts (auto) Absolute Nucleated RBC Nucleated RBC % (auto) ESR 105 H PT INR Anion Gap Estim Creat Clear Calc Estimated GFR POC Glucose 124 H Random Glucose Estimat Average Glucose Hemoglobin A1c % Lactic Acid Calcium Total Bilirubin AST ALT Alkaline Phosphatase C-Reactive Protein Total Protein Albumin Urine Color Urine Appearance Urine pH Ur Specific Jeremiah Urine Protein Urine Glucose (UA) Urine Ketones Urine Blood Urine Nitrite Ur Leukocyte Esterase Urine RBC Urine WBC Ur Squamous Epith Cells Urine Bacteria Hyaline Casts Influenza Type A (PCR) NEGATIVE Influenza Type B (PCR) NEGATIVE RSV RNA Qual (PCR) NEGATIVE SARS-CoV-2 RNA (RT-PCR) NEGATIVE 09/26/22 09/26/22 09/26/22 06:15 06:15 07:33 MCV 87.7 MCH 27.0 MCHC 30.8 L RDW 14.7 Plt Count 355 MPV 9.3 L Immature Gran % (Auto) 0.4 Neut % (Auto) 78.4 H Lymph % (Auto) 8.0 L Mckinley % (Auto) 9.6 Eos % (Auto) 3.2 Baso % (Auto) 0.4 Lymph # (Auto) 0.7 L Mckinley # (Auto) 0.9 Eos # (Auto) 0.3 Baso # (Auto) 0.0 Abs Immat Gran (auto) 0.04 H Absolute Neuts (auto) 7.1 Absolute Nucleated RBC 0.000 Nucleated RBC % (auto) 0.0 ESR PT INR Anion Gap 13 Estim Creat Clear Calc 64.0 Estimated GFR > 60 POC Glucose 121 H Random Glucose 125 H Estimat Average Glucose Hemoglobin A1c % Lactic Acid Calcium 9.2 Total Bilirubin AST ALT Alkaline Phosphatase C-Reactive Protein Total Protein Albumin Urine Color Urine Appearance Urine pH Ur Specific Jeremiah Urine Protein Urine Glucose (UA) Urine Ketones Urine Blood Urine Nitrite Ur Leukocyte Esterase Urine RBC Urine WBC Ur Squamous Epith Cells Urine Bacteria Hyaline Casts Influenza Type A (PCR) Influenza Type B (PCR) RSV RNA Qual (PCR) SARS-CoV-2 RNA (RT-PCR) 09/26/22 11:13 MCV MCH MCHC RDW Plt Count MPV Immature Gran % (Auto) Neut % (Auto) Lymph % (Auto) Mckinley % (Auto) Eos % (Auto) Baso % (Auto) Lymph # (Auto) Mckinley # (Auto) Eos # (Auto) Baso # (Auto) Abs Immat Gran (auto) Absolute Neuts (auto) Absolute Nucleated RBC Nucleated RBC % (auto) ESR PT INR Anion Gap Estim Creat Clear Calc Estimated GFR POC Glucose 189 H Random Glucose Estimat Average Glucose Hemoglobin A1c % Lactic Acid Calcium Total Bilirubin AST ALT Alkaline Phosphatase C-Reactive Protein Total Protein Albumin Urine Color Urine Appearance Urine pH Ur Specific Jeremiah Urine Protein Urine Glucose (UA) Urine Ketones Urine Blood Urine Nitrite Ur Leukocyte Esterase Urine RBC Urine WBC Ur Squamous Epith Cells Urine Bacteria Hyaline Casts Influenza Type A (PCR) Influenza Type B (PCR) RSV RNA Qual (PCR) SARS-CoV-2 RNA (RT-PCR) Assessment and Plan (1) Osteomyelitis of right foot: Status: Acute (2) Peripheral arterial disease: Status: Acute (3) Nonhealing ulcer of heel: Status: Acute Plan 87-year-old male with history of insulin-dependent type 2 diabetes, chronic low back pain s/p lumbar fusion, peripheral arterial disease s/p left BKA, hyperlipidemia, BPH, and 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 H/H stable H/H above transfusion threshold Follow CBC DVT prophylaxis-heparin Full code attending - dr. gaines Requires ongoing inpatient hospitalization for management of infected un stageable ulcer of the right heel with osteomyelitis of the calcaneus requiring IV antibiotics, ex for consultation, and possible amputation Time Spent With Patient Time: Total time managing care of this patient today ____ minutes. Quality Stroke Does the patient have a stroke diagnosis?: No VTE Prior VTE?: No VTE Risk Level:: Medical - moderate - high VTE Device Contraindication: Treatment Not Indicated VTE Drug Contraindication: N/A - Med Ordered
[2022-09-26 15:04] VITALS: BP 136/64; PULSE 71; RESP 16; TEMP 36.5; O2SAT 96
[2022-09-26 16:14] LABS: Glucose, Whole Blood 208 mg/dL (60-115)
[2022-09-26 19:52] VITALS: BP 146/66; PULSE 75; RESP 18; TEMP 36.5; O2SAT 95
[2022-09-26 20:20] LABS: Glucose, Whole Blood 193 mg/dL (60-115)
[2022-09-26] MEDS: Insulin Glargine,Hum.rec.anlog 100 UNIT/ML 10 ML VIAL SUBCUT (20:31)
[2022-09-26] MEDS: oxyCODONE HCl Immed Release 5 MG TABLET PO (23:29)
[2022-09-27] MEDS: cefEPime HCl 2 GM in 0.9 % Sodium Chloride 50 ML IV ×2 (00:05→12:09)
[2022-09-27 00:13] VITALS: BP 152/78; PULSE 75; RESP 18; TEMP 36.6; O2SAT 96
[2022-09-27 07:11] LABS: Glucose, Whole Blood 137 mg/dL (60-115)
[2022-09-27 07:22] VITALS: BP 132/60; PULSE 66; RESP 18; TEMP 36.2; O2SAT 95
[2022-09-27] MEDS: Tamsulosin HCL 0.4 MG CAPSULE PO (08:24)
[2022-09-27] MEDS: Atorvastatin Calcium 10 MG TABLET PO (08:24)
[2022-09-27] MEDS: Furosemide 20 MG TABLET PO (08:24)
[2022-09-27] MEDS: Heparin Sodium,Porcine 5,000 UNIT/ML VIAL 5000 UNIT SUBCUT ×2 (08:27→21:59)
[2022-09-27 08:37] LABS: Vancomycin Trough 17.1 mcg/mL (10.0-20.0)
[2022-09-27 08:58] LABS: Anion Gap 13 (12-20); Blood Urea Nitrogen 16 mg/dL (9-16); Calcium 8.9 mg/dL (8.4-10.2); Carbon Dioxide 22 mmol/L (22-29); Chloride 106 mmol/L (96-108); Creatinine Clr Calc Pharmacy 68.2; Estimated Glomerular Filt Rate > 60; Glucose Random 149 mg/dL (60-115); Potassium 4.7 mmol/L (3.3-5.1); Sodium 136 mmol/L (135-145)
[2022-09-27] MEDS: vancomycin HCL 750 MG in 0.9 % Sodium Chloride 250 ML 265 MG IV ×2 (09:39→23:31)
--- NOTE | 2022-09-27 11:23 | P.PNIM_ITS ---
Subjective Subjective Date of Service: 09/27/22 Interval History: Being followed for nonhealing right heel wound, patient denies fever chills, pain under good control offers no other acute complaints denies nausea vomiting, no abdominal pain, no diarrhea tolerating diet. Review of Systems All other system reviewed and negative. Physical Exam Vital Signs: Vital Signs: Last Vital Signs Temp 97.2 F 09/27/22 07:22 Pulse 66 09/27/22 07:22 Resp 18 09/27/22 07:22 BP 132/60 09/27/22 07:22 Pulse Ox 95 09/27/22 07:22 O2 Del Method Room Air 09/27/22 07:22 BMI result Body Mass Index 29.0 Const: Other: General resting comfortably in no acute distress. Anicteric sclera Neck is supple no JVD. CVS regular rate rhythm, Respiratory lungs clear to auscultation, no respiratory distress, no wheeze, no rhonchi. Gastrointestinal abdomen soft, nontender, bowel sounds audible, no guarding , no rigidity. Extremities left BKA, necrotic right heel ulcer with foul odor and purulent d rainage Neuro nonfocal Psych appropriate affect Objective Data Active Medications Acetaminophen (Acetaminophen 325 Mg Tablet) 650 mg PO Q6H PRN PRN Reason: Pain, Mild (Pain Scale 1-3) Hydrocodone Bitart/Acetaminophen (Hydrocodone Bit/Acetam 10/325 Tablet) 1 tab PO QID PRN PRN Reason: Pain, Severe (Pain Scale 7-10) Last Admin: 09/27/22 09:38 Dose: 1 tab Documented By: FAISAL Atorvastatin Calcium (Atorvastatin Calcium 10 Mg Tablet) 10 mg PO DAILY [facility] Last Admin: 09/27/22 08:24 Dose: 10 mg Documented By: FAISAL Dextrose (Dextrose 50 % 25 Gm/50 Ml Syringe) 25 gm IVPUSH Q15M PRN; Protocol PRN Reason: per Hypoglycemia Standing Ord. Docusate Sodium (Docusate Sodium 100 Mg Capsule) 100 mg PO DAILY PRN PRN Reason: Constipation Furosemide (Furosemide 20 Mg Tablet) 20 mg PO DAILY [facility]; Protocol Last Admin: 09/27/22 08:24 Dose: 20 mg Documented By: FAISAL Glucose (Glucose Gel 15 Gm Gel..Gram.) 15 gm PO Q15M PRN; Protocol PRN Reason: per Hypoglycemia Standing Ord. Heparin Sodium (Porcine) (Heparin Sodium,Porcine 5,000 Unit/Ml Vial) 5,000 unit SUBCUT Q12H [facility] Last Admin: 09/27/22 08:27 Dose: 5,000 unit Documented By: FAISAL Vancomycin HCl 750 mg/ Sodium (Chloride) 265 mls @ 265 mls/hr IV Q12H [facility] Last Infusion: 09/27/22 10:47 Dose: 0 mls/hr Documented By: FAISAL Cefepime HCl 2 gm/ Sodium (Chloride) 50 mls @ 100 mls/hr IV Q12H [facility] Last Infusion: 09/27/22 00:50 Dose: 0 mls/hr Documented By: MADDY Insulin Glargine (Insulin Glargine,Hum.Rec.Anlog 100 Unit/Ml 10 Ml Vial) 4 unit SUBCUT BEDTIME [facility] Last Admin: 09/26/22 20:31 Dose: 4 unit Documented By: MADDY Insulin Human Lispro (Insulin Lispro 100 Unit/Ml 3 Ml Vial) 0 unit SUBCUT QIDACHS [facility]; Protocol Last Admin: 09/27/22 07:28 Dose: Not Given Documented By: FAISAL Non-Admin Reason: No Insulin Coverage Ondansetron HCl (Ondansetron Hcl 4 Mg/2 Ml Vial) 4 mg IVPUSH Q8H PRN PRN Reason: Nausea and Vomiting Pharmacy Consult (Consult Rx Perform Med Rec) 1 each MISCELLANE ONCE PRN PRN Reason: Consult order Pharmacy Consult (Consult Rx Vancomycin Dosing) 1 each MISCELLANE DAILY PRN PRN Reason: Consult order Tamsulosin HCl (Tamsulosin Hcl 0.4 Mg Capsule) 0.4 mg PO DAILY [facility] Last Admin: 09/27/22 08:24 Dose: 0.4 mg Documented By: FAISAL Labs 09/26/22 06:15 09/27/22 08:10 Labs: Laboratory Results - last 24 hr 09/26/22 09/26/22 09/27/22 16:09 20:17 07:00 Anion Gap Estim Creat Clear Calc Estimated GFR POC Glucose 208 H 193 H 137 H Random Glucose Calcium Vancomycin Trough 09/27/22 09/27/22 08:10 08:10 Anion Gap 13 Estim Creat Clear Calc 68.2 Estimated GFR > 60 POC Glucose Random Glucose 149 H Calcium 8.9 Vancomycin Trough 17.1 Microbiology Microbiology Results: Microbiology 09/25/22 18:21 Blood Culture - Preliminary Blood - Venous No growth after 24 hours. 09/25/22 18:12 Blood Culture - Preliminary Blood - Venous No growth after 24 hours. 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 peripheral arterial disease complicated by type 2 diabetes no sepsis arterial duplex RLE - poor arterial blood supply continue IV vanco and cefepime (initiated 09/25) seen by vascular surgery, with degree of bone/tissue injury - will likely require BKA early next week insulin-dependent type 2 diabetes Stable blood sugars, HbA1c 7.0 continue basal insulin , oral hypoglycemics on hold ADA diet, SSI, POCs peripheral artery disease continue statin plavix on hold for likely surgery chronic low back pain s/p lumbar fusion Good pain control, continue Vicodin BPH continue tamsulosin Normocytic anemia suspect chronic, denies bleeding. H/H stable H/H above transfusion threshold Hematocrit stable 29.2 DVT prophylaxis-heparin Full code Requires ongoing inpatient hospitalization for management of infected unstageable ulcer of the right heel with osteomyelitis of the calcaneus requiring IV antibiotics, ex for consultation, and possible amputation Time Spent With Patient Time: Total time managing care of this patient today ____ minutes. Quality Stroke Does the patient have a stroke diagnosis?: No VTE Prior VTE?: No VTE Risk Level:: Medical - moderate - high VTE Device Contraindication: Treatment Not Indicated VTE Drug Contraindication: N/A - Med Ordered
[2022-09-27 11:58] LABS: Glucose, Whole Blood 225 mg/dL (60-115)
[2022-09-27] MEDS: Insulin Lispro 100 UNIT/ML 3 ML VIAL SUBCUT ×3 (12:08→21:59)
[2022-09-27 16:00] VITALS: BP 140/70; PULSE 68; RESP 18; TEMP 36.3; O2SAT 98
[2022-09-27 16:24] LABS: Glucose, Whole Blood 228 mg/dL (60-115)
[2022-09-27 20:00] VITALS: BP 176/75; PULSE 81; RESP 20; TEMP 36.1; O2SAT 95
[2022-09-27 20:38] LABS: Glucose, Whole Blood 182 mg/dL (60-115)
[2022-09-27] MEDS: Insulin Glargine,Hum.rec.anlog 100 UNIT/ML 10 ML VIAL SUBCUT (22:00)
[2022-09-28] MEDS: cefEPime HCl 2 GM in 0.9 % Sodium Chloride 50 ML IV ×3 (00:49→23:55)
[2022-09-28 07:15] LABS: Glucose, Whole Blood 104 mg/dL (60-115)
[2022-09-28 07:17] VITALS: BP 145/64; PULSE 68; RESP 16; TEMP 36.1; O2SAT 97
[2022-09-28] MEDS: Tamsulosin HCL 0.4 MG CAPSULE PO (08:16)
[2022-09-28] MEDS: Heparin Sodium,Porcine 5,000 UNIT/ML VIAL 5000 UNIT SUBCUT ×2 (08:16→21:18)
[2022-09-28] MEDS: Furosemide 20 MG TABLET PO (08:16)
[2022-09-28] MEDS: Atorvastatin Calcium 10 MG TABLET PO (08:16)
[2022-09-28 09:23] LABS: Creatinine Clr Calc Pharmacy 69.8; Estimated Glomerular Filt Rate > 60; Vancomycin Random 19.7 mcg/mL (15-20)
--- NOTE | 2022-09-28 09:35 | HE.PHANOTE ---
Re: vanco dosing Pt SCr stable, trough came in today at 19.7. Decreasing dose to 1250 q24 to ensure we don't overtreat. Will recheck level tomorrow before next dose 09/29 @0800.
[2022-09-28] MEDS: vancomycin HCL 1,250 MG in 0.9 % Sodium Chloride 250 ML 166.67 MG IV (09:50)
--- NOTE | 2022-09-28 10:44 | P.PNIM_ITS ---
Subjective Subjective Date of Service: 09/28/22 Interval History: Being followed for nonhealing right heel wound patient offers no acute complaints sitting comfortably denies pain, tolerating diet, no nausea, no vomiting, no abdominal pain, no other acute issues overnight Review of Systems All other system reviewed and negative. Physical Exam Vital Signs: Vital Signs: Last Vital Signs Temp 97 F 09/28/22 07:17 Pulse 68 09/28/22 07:17 Resp 16 09/28/22 07:17 BP 145/64 H 09/28/22 07:17 Pulse Ox 97 09/28/22 07:17 O2 Del Method Room Air 09/28/22 07:17 BMI result Body Mass Index 29.0 Const: Other: General resting comfortably in no acute distress.? Anicteric sclera Neck is supple no JVD. CVS? regular rate rhythm, Respiratory lungs clear to auscultation, no respiratory distress, no wheeze, no rhonchi. Gastrointestinal abdomen soft, nontender, bowel sounds audible, no guarding , no rigidity. Extremities left BKA, necrotic right heel ulcer with foul odor and purulent d rainage Neuro nonfocal Psych appropriate affect Objective Data Active Medications Acetaminophen (Acetaminophen 325 Mg Tablet) 650 mg PO Q6H PRN PRN Reason: Pain, Mild (Pain Scale 1-3) Hydrocodone Bitart/Acetaminophen (Hydrocodone Bit/Acetam 10/325 Tablet) 1 tab PO QID PRN PRN Reason: Pain, Severe (Pain Scale 7-10) Last Admin: 09/28/22 08:28 Dose: 1 tab Documented By: FAISAL Atorvastatin Calcium (Atorvastatin Calcium 10 Mg Tablet) 10 mg PO DAILY [facility] Last Admin: 09/28/22 08:16 Dose: 10 mg Documented By: FAISAL Dextrose (Dextrose 50 % 25 Gm/50 Ml Syringe) 25 gm IVPUSH Q15M PRN; Protocol PRN Reason: per Hypoglycemia Standing Ord. Docusate Sodium (Docusate Sodium 100 Mg Capsule) 100 mg PO DAILY PRN PRN Reason: Constipation Furosemide (Furosemide 20 Mg Tablet) 20 mg PO DAILY [facility]; Protocol Last Admin: 09/28/22 08:16 Dose: 20 mg Documented By: FAISAL Glucose (Glucose Gel 15 Gm Gel..Gram.) 15 gm PO Q15M PRN; Protocol PRN Reason: per Hypoglycemia Standing Ord. Heparin Sodium (Porcine) (Heparin Sodium,Porcine 5,000 Unit/Ml Vial) 5,000 unit SUBCUT Q12H [facility] Last Admin: 09/28/22 08:16 Dose: 5,000 unit Documented By: FAISAL Cefepime HCl 2 gm/ Sodium (Chloride) 50 mls @ 100 mls/hr IV Q12H [facility] Last Infusion: 09/28/22 01:19 Dose: 0 mls/hr Documented By: MARLEE Vancomycin HCl 1,250 mg/ (Sodium Chloride) 250 mls @ 166.667 mls/hr IV Q24H [facility] Last Admin: 09/28/22 09:50 Dose: 166.67 mls/hr Documented By: FAISAL Insulin Glargine (Insulin Glargine,Hum.Rec.Anlog 100 Unit/Ml 10 Ml Vial) 4 unit SUBCUT BEDTIME [facility] Last Admin: 09/27/22 22:00 Dose: 4 unit Documented By: MARLEE Insulin Human Lispro (Insulin Lispro 100 Unit/Ml 3 Ml Vial) 0 unit SUBCUT QIDACHS [facility]; Protocol Last Admin: 09/28/22 07:25 Dose: Not Given Documented By: FAISAL Non-Admin Reason: No Insulin Coverage Ondansetron HCl (Ondansetron Hcl 4 Mg/2 Ml Vial) 4 mg IVPUSH Q8H PRN PRN Reason: Nausea and Vomiting Pharmacy Consult (Consult Rx Perform Med Rec) 1 each MISCELLANE ONCE PRN PRN Reason: Consult order Pharmacy Consult (Consult Rx Vancomycin Dosing) 1 each MISCELLANE DAILY PRN PRN Reason: Consult order Tamsulosin HCl (Tamsulosin Hcl 0.4 Mg Capsule) 0.4 mg PO DAILY [facility] Last Admin: 09/28/22 08:16 Dose: 0.4 mg Documented By: FAISAL Labs 09/26/22 06:15 09/28/22 08:35 Labs: Laboratory Results - last 24 hr 09/27/22 09/27/22 09/27/22 11:49 16:18 20:35 Estim Creat Clear Calc Estimated GFR POC Glucose 225 H 228 H 182 H Random Vancomycin 09/28/22 09/28/22 09/28/22 07:05 08:35 08:35 Estim Creat Clear Calc 69.8 Estimated GFR > 60 POC Glucose 104 Random Vancomycin 19.7 Microbiology Microbiology Results: Microbiology 09/25/22 18:21 Blood Culture - Preliminary Blood - Venous No growth after 48 hours. 09/25/22 18:12 Blood Culture - Preliminary Blood - Venous No growth after 48 hours. 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 Infected chronic unstageable right heel ulcer/osteomyelitis of the rt. calcaneus secondary to peripheral arterial disease complicated by type 2 diabetes no sepsis arterial duplex RLE - poor arterial blood supply continue IV vanco and cefepime (initiated 09/25) seen by vascular surgery, with degree of bone/tissue injury - will likely require BKA early next week insulin-dependent type 2 diabetes Few elevated blood sugar readings, HbA1c 7.0 continue Lantus 4 units will increase dose of insulin sliding scale , oral hypoglycemics on hold Continue diabetic diet and close blood sugar monitoring peripheral artery disease continue statin plavix on hold for likely surgery chronic low back pain s/p lumbar fusion Good pain control, continue Vicodin BPH continue tamsulosin Normocytic anemia suspect chronic, denies bleeding. H/H stable above transfusion threshold Hematocrit 29.2 DVT prophylaxis-heparin Full code Requires ongoing inpatient hospitalization for management of infected unstageable ulcer of the right heel with osteomyelitis of the calcaneus requiring IV antibiotics, ex for consultation, and possible amputation Time Spent With Patient Time: Total time managing care of this patient today ____ minutes. Quality Stroke Does the patient have a stroke diagnosis?: No VTE Prior VTE?: No VTE Risk Level:: Medical - moderate - high VTE Device Contraindication: Treatment Not Indicated VTE Drug Contraindication: N/A - Med Ordered
[2022-09-28 11:42] LABS: Glucose, Whole Blood 250 mg/dL (60-115)
[2022-09-28] MEDS: Insulin Lispro 100 UNIT/ML 3 ML VIAL SUBCUT ×3 (12:01→21:18)
[2022-09-28 15:16] VITALS: BP 131/61; PULSE 62; RESP 18; TEMP 36.6; O2SAT 95
[2022-09-28 16:16] LABS: Glucose, Whole Blood 225 mg/dL (60-115)
[2022-09-28 19:15] VITALS: BP 140/63; PULSE 57; RESP 16; TEMP 36.1; O2SAT 94
[2022-09-28 20:33] LABS: Glucose, Whole Blood 210 mg/dL (60-115)
[2022-09-28] MEDS: Insulin Glargine,Hum.rec.anlog 100 UNIT/ML 10 ML VIAL SUBCUT (21:18)
[2022-09-29 02:59] VITALS: BP 165/77; PULSE 64; RESP 14; TEMP 36.1; O2SAT 96
[2022-09-29 06:57] VITALS: BP 172/72; PULSE 71; RESP 20; TEMP 36.1; O2SAT 97
[2022-09-29 07:13] LABS: Glucose, Whole Blood 124 mg/dL (60-115)
[2022-09-29] MEDS: Tamsulosin HCL 0.4 MG CAPSULE PO (07:59)
[2022-09-29] MEDS: Atorvastatin Calcium 10 MG TABLET PO (07:59)
[2022-09-29] MEDS: Heparin Sodium,Porcine 5,000 UNIT/ML VIAL 5000 UNIT SUBCUT ×2 (07:59→20:08)
[2022-09-29] MEDS: Furosemide 20 MG TABLET PO (07:59)
[2022-09-29 08:55] LABS: Creatinine Clr Calc Pharmacy 62.7; Estimated Glomerular Filt Rate > 60
--- NOTE | 2022-09-29 09:32 | HE.PHANOTE ---
RE: VANCO Patients level was 19. Will decrease dose to 1000 mg Q12H. next draw tomorrow 09/30 @0800
[2022-09-29] MEDS: vancomycin HCL 1,000 MG in 0.9 % Sodium Chloride 250 ML 270 MG IV (10:29)
[2022-09-29 11:14] LABS: Glucose, Whole Blood 237 mg/dL (60-115)
--- NOTE | 2022-09-29 11:24 | HO.PM.IMPN ---
Subjective Subjective Date of Service: 09/29/22 Interval History: As per discussion with vascular, patient declining BKA at this time. States pain control adequate; wishes to try antibiotics for couple more days prior to agreeing to amputation Review of Systems denies chest pain Denies shortness of breath Denies nausea vomiting diarrhea Denies fever chills Physical Exam Vital Signs: Vital Signs: Last Vital Signs Temp 97 F 09/29/22 06:57 Pulse 71 09/29/22 06:57 Resp 20 09/29/22 06:57 BP 172/72 H 09/29/22 06:57 Pulse Ox 97 09/29/22 06:57 O2 Del Method Room Air 09/29/22 06:57 BMI result Body Mass Index 29.0 Const: Other: Awake alert; comfortable Resp: Other: Clear to auscultation bilaterally no rales rhonchi or wheezes Cardio: Other: no S4; positive S1-S2; no S3 murmurs rubs or gallops GI: Other: soft nontender nondistended normoactive bowel sounds Extrem: Other: right heel with approximately 8 cm ulceration with follow all odor noted. Minimal surrounding erythema Objective Data Active Medications Acetaminophen (Acetaminophen 325 Mg Tablet) 650 mg PO Q6H PRN PRN Reason: Pain, Mild (Pain Scale 1-3) Hydrocodone Bitart/Acetaminophen (Hydrocodone Bit/Acetam 10/325 Tablet) 1 tab PO QID PRN PRN Reason: Pain, Severe (Pain Scale 7-10) Last Admin: 09/29/22 10:28 Dose: 1 tab Documented By: LUCIEN Atorvastatin Calcium (Atorvastatin Calcium 10 Mg Tablet) 10 mg PO DAILY [facility] Last Admin: 09/29/22 07:59 Dose: 10 mg Documented By: STACIA Dextrose (Dextrose 50 % 25 Gm/50 Ml Syringe) 25 gm IVPUSH Q15M PRN; Protocol PRN Reason: per Hypoglycemia Standing Ord. Docusate Sodium (Docusate Sodium 100 Mg Capsule) 100 mg PO DAILY PRN PRN Reason: Constipation Furosemide (Furosemide 20 Mg Tablet) 20 mg PO DAILY [facility]; Protocol Last Admin: 09/29/22 07:59 Dose: 20 mg Documented By: STACIA Glucose (Glucose Gel 15 Gm Gel..Gram.) 15 gm PO Q15M PRN; Protocol PRN Reason: per Hypoglycemia Standing Ord. Heparin Sodium (Porcine) (Heparin Sodium,Porcine 5,000 Unit/Ml Vial) 5,000 unit SUBCUT Q12H [facility] Last Admin: 09/29/22 07:59 Dose: 5,000 unit Documented By: STACIA Cefepime HCl 2 gm/ Sodium (Chloride) 50 mls @ 100 mls/hr IV Q12H [facility] Last Infusion: 09/29/22 00:27 Dose: 0 mls/hr Documented By: MADDY Vancomycin HCl 1,000 mg/ (Sodium Chloride) 270 mls @ 270 mls/hr IV Q24H [facility] Last Admin: 09/29/22 10:29 Dose: 270 mls/hr Documented By: LUCIEN Insulin Glargine (Insulin Glargine,Hum.Rec.Anlog 100 Unit/Ml 10 Ml Vial) 4 unit SUBCUT BEDTIME [facility] Last Admin: 09/28/22 21:18 Dose: 4 unit Documented By: MADDY Insulin Human Lispro (Insulin Lispro 100 Unit/Ml 3 Ml Vial) 0 unit SUBCUT QIDACHS [facility]; Protocol Last Admin: 09/29/22 07:42 Dose: Not Given Documented By: STACIA Non-Admin Reason: No Insulin Coverage Ondansetron HCl (Ondansetron Hcl 4 Mg/2 Ml Vial) 4 mg IVPUSH Q8H PRN PRN Reason: Nausea and Vomiting Pharmacy Consult (Consult Rx Perform Med Rec) 1 each MISCELLANE ONCE PRN PRN Reason: Consult order Pharmacy Consult (Consult Rx Vancomycin Dosing) 1 each MISCELLANE DAILY PRN PRN Reason: Consult order Tamsulosin HCl (Tamsulosin Hcl 0.4 Mg Capsule) 0.4 mg PO DAILY [facility] Last Admin: 09/29/22 07:59 Dose: 0.4 mg Documented By: STACIA Comments: barcode ripped Labs 09/26/22 06:15 09/29/22 08:03 Labs: Laboratory Results - last 24 hr 09/28/22 09/28/22 09/28/22 11:29 16:10 20:19 Estim Creat Clear Calc Estimated GFR POC Glucose 250 H 225 H 210 H Random Vancomycin 09/29/22 09/29/22 09/29/22 06:56 08:03 08:03 Estim Creat Clear Calc 62.7 Estimated GFR > 60 POC Glucose 124 H Random Vancomycin 19.0 09/29/22 11:07 Estim Creat Clear Calc Estimated GFR POC Glucose 237 H Random Vancomycin Assessment and Plan (1) Osteomyelitis of right foot: Status: Acute (2) Peripheral arterial disease: Status: Acute (3) Type 2 diabetes mellitus: Status: Acute Plan 87-year-old male with history of insulin-dependent type 2 diabetes, chronic low back pain s/p lumbar fusion, peripheral arterial disease s/p left BKA, hyperlipidemia, BPH, and 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 calcaneus -Vanco /Cefepime (4) - long discussion with patient after seen by vascular. Understands risks of refusing surgery. Wishes to try 1-2 days more of IV antibiotics. -Poor prognosis for recovery with IV antibiotics alone 2.DM II - add back metformin to regimen - continue basilar insulin as ordered; lispro correctional scale - adjust as indicated 3.Peripheral artery disease -continue statin -will continue to hold Plavix pending final decision by patient 4.Normocytic anemia - likely related to chronic disease - follow CBCs; transfuse as indicated Full code heparin Requires ongoing inpatient hospitalization for management of osteomyelitis of the calcaneus requiring IV antibiotics Time Spent With Patient Time: Total time managing care of this patient today ____ minutes. Quality Stroke Does the patient have a stroke diagnosis?: No VTE Prior VTE?: No VTE Risk Level:: Medical - moderate - high VTE Device Contraindication: Treatment Not Indicated VTE Drug Contraindication: N/A - Med Ordered
[2022-09-29] MEDS: Insulin Lispro 100 UNIT/ML 3 ML VIAL SUBCUT ×3 (11:47→20:05)
--- NOTE | 2022-09-29 11:49 | P.PNVS_ITS ---
Subjective Subjective Date of Service: 09/29/22 Patient reports: no new complaints and pain is less Interval history: Patient seen and examined. Events over the past weekend noted. No significant changes. He continues to have this right calcaneus ulcer. He has had the weekend to kind of think about the entire situation. Now presents for follow- up. Physical Exam Vital Signs: Vital Signs: Last Vital Signs Temp 97 F 09/29/22 06:57 Pulse 71 09/29/22 06:57 Resp 20 09/29/22 06:57 BP 172/72 H 09/29/22 06:57 Pulse Ox 97 09/29/22 06:57 O2 Del Method Room Air 09/29/22 06:57 BMI result Body Mass Index 29.0 Const: General: cooperative, healthy appearing and no acute distress Orientation/consciousness: oriented to person, oriented to place and oriented to time HEENT: Head: Yes normal to inspection Neck: Carotids: no bruits Chest: Chest palpation & inspection: normal inspection of the chest Resp: Effort & Inspection: normal respiratory effort and able to speak in complete sentences Auscultation: clear to auscultation bilaterally Cardio: Rate: regular rate Heart sounds: S1 normal heart sound present and S2 normal heart sound present GI: Inspection: Yes normal to inspection Skin: Other: Right calcaneus exposed. Approximately 10 cm in diameter. Overall foul odor associated with it. General skin exam: no rashes or lesions noted Wounds: no wounds Neuro: General: oriented to person, oriented to place, oriented to time and CN's II-XI intact bilaterally Extrem: General: Yes normal to inspection, Yes full ROM and Yes no clubbing, cyanosis or edema Psych: Appearance: grossly normal and well kempt Speech and movement: Normal speech and movement present Affect: normal affect Progress Note: A&P Assessment and plan (1) Nonhealing ulcer of heel: Status: Acute Assessment and Plan: In short patient has a nonhealing right lower extremity ulcer. I had an extensive discussion with the patient regarding the pathophysiology of what is going on along with the fact that there is significantly exposed calcaneus. I do feel that the best option for this gentleman would be a below-knee amputation. He is currently refusing. He would like to try conservative measures. He did recognize that this could potentially lead to sepsis and . He was aware of the consequences. He would like to continue to try to conservatively manage this as he only has 1 leg. He politely has declined further surgery. We will follow on an as-needed basis. Thank you for allowing us to assist in his care. Time Spent With Patient Time: Total time managing care of this patient today ____ minutes. Procedures Date of Service Date of Service: 09/29/22 Quality Stroke Does the patient have a stroke diagnosis?: No VTE Prior VTE?: No VTE Risk Level:: Medical - moderate - high VTE Device Contraindication: Treatment Not Indicated VTE Drug Contraindication: N/A - Med Ordered
[2022-09-29] MEDS: cefEPime HCl 2 GM in 0.9 % Sodium Chloride 50 ML IV (12:32)
--- NOTE | 2022-09-29 13:05 | MHC.CM.PN ---
DX Osteo myelitis RX IV ABX. Per surgeon An AMP is required. Spoke with patient re: DP. He was active with [facility] in the past. He would like to receive services from the [facility] at discharge. The patient understands thathe may qualify for STR. He is willing to go to STR. He want [facility] to follow for discharge @ [facility]. Patient will transport via BLS.
[2022-09-29 15:16] VITALS: BP 172/68; PULSE 60; RESP 20; TEMP 36.3; O2SAT 98
[2022-09-29 16:17] LABS: Glucose, Whole Blood 169 mg/dL (60-115)
[2022-09-29 19:54] VITALS: BP 160/84; PULSE 75; RESP 18; TEMP 37.3; O2SAT 94
[2022-09-29] MEDS: Insulin Glargine,Hum.rec.anlog 100 UNIT/ML 10 ML VIAL SUBCUT (20:04)
[2022-09-29 20:16] LABS: Glucose, Whole Blood 274 mg/dL (60-115)
[2022-09-30] MEDS: cefEPime HCl 2 GM in 0.9 % Sodium Chloride 50 ML IV ×2 (00:21→11:56)
[2022-09-30 03:30] VITALS: BP 188/76; PULSE 64; RESP 18; TEMP 36.2; O2SAT 98
[2022-09-30 05:16] VITALS: BP 161/71; PULSE 66; RESP 18
[2022-09-30 06:42] LABS: Estimated Glomerular Filt Rate > 60
[2022-09-30 07:51] VITALS: BP 184/81; PULSE 61; RESP 18; TEMP 36.2; O2SAT 96
[2022-09-30 07:51] LABS: Glucose, Whole Blood 124 mg/dL (60-115)
[2022-09-30] MEDS: Heparin Sodium,Porcine 5,000 UNIT/ML VIAL 5000 UNIT SUBCUT ×2 (08:07→20:30)
[2022-09-30] MEDS: Furosemide 20 MG TABLET PO (08:07)
[2022-09-30] MEDS: Atorvastatin Calcium 10 MG TABLET PO (08:07)
[2022-09-30] MEDS: Tamsulosin HCL 0.4 MG CAPSULE PO (08:07)
[2022-09-30 09:32] LABS: Vancomycin Random 16.2 mcg/mL (15-20)
--- NOTE | 2022-09-30 09:42 | HE.PHANOTE ---
RE: MILAN Patients level came back this AM at 16.2. Patients troughs/levels are coming back significantly greater than what rxinsight shows. Therefore I will continue current dose of 1000 mg Q24H. Rxinisight shows a level of 11.5, however, with the patient running higher than predicted, I suspect patients trough will remain around 16-14. If level decreases more than this, dose should be increased to 1250 mg Q24H, did not want to increase to this today as patients trough became supratherapeutic at this dose last time. Next level will be after one more dose of 1000 mg, 10/01 @0800. Will adjust dose as needed then.
[2022-09-30] MEDS: vancomycin HCL 1,000 MG in 0.9 % Sodium Chloride 250 ML 270 MG IV (10:12)
[2022-09-30 11:21] LABS: Glucose, Whole Blood 235 mg/dL (60-115)
[2022-09-30 11:22] LABS: Glucose, Whole Blood 315 mg/dL (60-115)
[2022-09-30] MEDS: Insulin Lispro 100 UNIT/ML 3 ML VIAL SUBCUT ×3 (11:55→20:40)
[2022-09-30 12:00] VITALS: BP 188/81
--- NOTE | 2022-09-30 12:57 | P.PNIM_ITS ---
Subjective Subjective Date of Service: 09/30/22 Interval History: No acute issues overnight. Long discussion with patient regarding wound. Discussed poor prognosis with antibiotics alone and discussed possible consequences. Agrees to BKA. present at bedside who is in agreement Review of Systems denies chest pain Denies shortness of breath Denies nausea vomiting diarrhea Denies fever chills Physical Exam Vital Signs: Vital Signs: Last Vital Signs Temp 97.1 F 09/30/22 07:51 Pulse 61 09/30/22 07:51 Resp 18 09/30/22 07:51 BP 184/81 H 09/30/22 07:51 Pulse Ox 96 09/30/22 07:51 O2 Del Method Room Air 09/30/22 07:51 BMI result Body Mass Index 29.0 Const: Other: Awake alert; comfortable Resp: Other: Clear to auscultation bilaterally no rales rhonchi or wheezes Cardio: Other: no S4; positive S1-S2; no S3 murmurs rubs or gallops GI: Other: soft nontender nondistended normoactive bowel sounds Extrem: Other: right heel with approximately 8 cm ulceration with follow all odor noted. Minimal surrounding erythema Objective Data Active Medications Acetaminophen (Acetaminophen 325 Mg Tablet) 650 mg PO Q6H PRN PRN Reason: Pain, Mild (Pain Scale 1-3) Hydrocodone Bitart/Acetaminophen (Hydrocodone Bit/Acetam 10/325 Tablet) 1 tab PO QID PRN PRN Reason: Pain, Severe (Pain Scale 7-10) Last Admin: 09/30/22 10:12 Dose: 1 tab Documented By: JOSIE Atorvastatin Calcium (Atorvastatin Calcium 10 Mg Tablet) 10 mg PO DAILY [facility] Last Admin: 09/30/22 08:07 Dose: 10 mg Documented By: JOSIE Dextrose (Dextrose 50 % 25 Gm/50 Ml Syringe) 25 gm IVPUSH Q15M PRN; Protocol PRN Reason: per Hypoglycemia Standing Ord. Docusate Sodium (Docusate Sodium 100 Mg Capsule) 100 mg PO DAILY PRN PRN Reason: Constipation Furosemide (Furosemide 20 Mg Tablet) 20 mg PO DAILY [facility]; Protocol Last Admin: 09/30/22 08:07 Dose: 20 mg Documented By: JOSIE Glucose (Glucose Gel 15 Gm Gel..Gram.) 15 gm PO Q15M PRN; Protocol PRN Reason: per Hypoglycemia Standing Ord. Heparin Sodium (Porcine) (Heparin Sodium,Porcine 5,000 Unit/Ml Vial) 5,000 unit SUBCUT Q12H [facility] Last Admin: 09/30/22 08:07 Dose: 5,000 unit Documented By: JOSIE Cefepime HCl 2 gm/ Sodium (Chloride) 50 mls @ 100 mls/hr IV Q12H [facility] Last Infusion: 09/30/22 12:38 Dose: 100 mls/hr Documented By: JOSIE Vancomycin HCl 1,000 mg/ (Sodium Chloride) 270 mls @ 270 mls/hr IV Q24H [facility] Last Infusion: 09/30/22 11:30 Dose: 270 mls/hr Documented By: JOSIE Insulin Glargine (Insulin Glargine,Hum.Rec.Anlog 100 Unit/Ml 10 Ml Vial) 4 unit SUBCUT BEDTIME [facility] Last Admin: 09/29/22 20:04 Dose: 4 unit Documented By: JACK Insulin Human Lispro (Insulin Lispro 100 Unit/Ml 3 Ml Vial) 0 unit SUBCUT QIDACHS [facility]; Protocol Last Admin: 09/30/22 11:55 Dose: 6 unit Documented By: JOSIE Ondansetron HCl (Ondansetron Hcl 4 Mg/2 Ml Vial) 4 mg IVPUSH Q8H PRN PRN Reason: Nausea and Vomiting Pharmacy Consult (Consult Rx Perform Med Rec) 1 each MISCELLANE ONCE PRN PRN Reason: Consult order Pharmacy Consult (Consult Rx Vancomycin Dosing) 1 each MISCELLANE DAILY PRN PRN Reason: Consult order Tamsulosin HCl (Tamsulosin Hcl 0.4 Mg Capsule) 0.4 mg PO DAILY [facility] Last Admin: 09/30/22 08:07 Dose: 0.4 mg Documented By: JOSIE Labs 09/26/22 06:15 09/30/22 05:38 Labs: Laboratory Results - last 24 hr 09/29/22 09/29/22 09/30/22 16:10 19:58 05:38 Estim Creat Clear Calc 74.0 Estimated GFR > 60 POC Glucose 169 H 274 H Random Vancomycin 09/30/22 09/30/22 09/30/22 07:42 08:49 11:06 Estim Creat Clear Calc Estimated GFR POC Glucose 124 H 315 H Random Vancomycin 16.2 09/30/22 11:11 Estim Creat Clear Calc Estimated GFR POC Glucose 235 H Random Vancomycin Assessment and Plan (1) Osteomyelitis of right foot: Status: Acute (2) Type 2 diabetes mellitus: Status: Acute (3) Peripheral arterial disease: Status: Acute Plan 87-year-old male with history of insulin-dependent type 2 diabetes, chronic low back pain s/p lumbar fusion, peripheral arterial disease s/p left BKA, hyperlipidemia, BPH, and 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 calcaneus -Vanco /Cefepime (5) - agrees to BKA; Dr. Gonzalez notified - continue IV antibiotics until surgery 2.DM II - add back metformin to regimen - continue basilar insulin as ordered; lispro correctional scale - adjust as indicated 3.Peripheral artery disease -continue statin -will continue to hold Plavix pending final decision by patient 4.Normocytic anemia - likely related to chronic disease - follow CBCs; transfuse as indicated Full code heparin Requires ongoing inpatient hospitalization for management of osteomyelitis of the calcaneus failing IV antibiotics alone. Will need BKA Time Spent With Patient Time: Total time managing care of this patient today ____ minutes. Quality Stroke Does the patient have a stroke diagnosis?: No VTE Prior VTE?: No VTE Risk Level:: Medical - moderate - high VTE Device Contraindication: Treatment Not Indicated VTE Drug Contraindication: N/A - Med Ordered
[2022-09-30] MEDS: lisinopriL 5 MG TABLET PO (13:45)
[2022-09-30 15:25] VITALS: BP 157/62; PULSE 61; RESP 20; TEMP 36.8; O2SAT 97
[2022-09-30 16:30] LABS: Glucose, Whole Blood 305 mg/dL (60-115)
[2022-09-30 19:57] VITALS: BP 162/72; PULSE 73; RESP 20; TEMP 36.6; O2SAT 96
[2022-09-30] MEDS: Insulin Glargine,Hum.rec.anlog 100 UNIT/ML 10 ML VIAL SUBCUT (20:34)
[2022-09-30 20:42] LABS: Glucose, Whole Blood 226 mg/dL (60-115)
[2022-10-01] MEDS: cefEPime HCl 2 GM in 0.9 % Sodium Chloride 50 ML IV ×2 (00:10→12:33)
[2022-10-01 03:32] VITALS: BP 182/88; PULSE 65; RESP 17; O2SAT 96
[2022-10-01 07:03] VITALS: BP 154/72; PULSE 73; RESP 18; TEMP 36.1; O2SAT 96
[2022-10-01 07:10] LABS: Glucose, Whole Blood 139 mg/dL (60-115)
[2022-10-01] MEDS: Heparin Sodium,Porcine 5,000 UNIT/ML VIAL 5000 UNIT SUBCUT (07:59)
[2022-10-01] MEDS: Furosemide 20 MG TABLET PO (08:00)
[2022-10-01] MEDS: lisinopriL 5 MG TABLET PO (08:00)
[2022-10-01] MEDS: Tamsulosin HCL 0.4 MG CAPSULE PO (08:00)
[2022-10-01] MEDS: Atorvastatin Calcium 10 MG TABLET PO (08:01)
[2022-10-01 08:42] LABS: Creatinine Clr Calc Pharmacy 76.8; Estimated Glomerular Filt Rate > 60
[2022-10-01 08:44] LABS: Vancomycin Random 17.2 mcg/mL (15-20)
--- NOTE | 2022-10-01 08:57 | HE.PHANOTE ---
RE:VANCO DOSING SCr is 0.80 today and his vanco level has gone up a little from yesterday (17.2 today). Insight says AUC will fall below 400 after 4 more doses but level is actually increasing at this time so will continue on current regimen. Recheck level 10/02 @0800.
[2022-10-01 11:04] LABS: Glucose, Whole Blood 257 mg/dL (60-115)
[2022-10-01] MEDS: vancomycin HCL 1,000 MG in 0.9 % Sodium Chloride 250 ML 270 MG IV (11:12)
[2022-10-01] MEDS: Acetaminophen 325 MG TABLET 650 MG PO (11:40)
--- NOTE | 2022-10-01 11:49 | HO.VASCPN ---
Subjective Subjective Date of Service: 10/01/22 Patient reports: no new complaints and feels better Interval history: Patient seen and examined. No significant events over the past few days. He has had some time to think about and discuss the findings on his right leg. Unfortunately he has exposed calcaneus though at has been nonhealing for about 6 months. He is now for follow-up with at bedside. Physical Exam Vital Signs: Vital Signs: Last Vital Signs Temp 97 F 10/01/22 07:03 Pulse 73 10/01/22 07:03 Resp 18 10/01/22 07:03 BP 154/72 H 10/01/22 07:03 Pulse Ox 96 10/01/22 07:03 O2 Del Method Room Air 10/01/22 07:03 BMI result Body Mass Index 29.0 Const: General: cooperative, healthy appearing and no acute distress Orientation/consciousness: oriented to person, oriented to place and oriented to time HEENT: Head: Yes normal to inspection Neck: Carotids: no bruits Chest: Chest palpation & inspection: normal inspection of the chest Resp: Effort & Inspection: normal respiratory effort and able to speak in complete sentences Auscultation: clear to auscultation bilaterally Cardio: Rate: regular rate Heart sounds: S1 normal heart sound present and S2 normal heart sound present GI: Inspection: Yes normal to inspection Skin: Other: Right lower extremity nonhealing ulcer - exposed calcaneus foul odor General skin exam: no rashes or lesions noted Wounds: no wounds Neuro: General: oriented to person, oriented to place, oriented to time and CN's II-XI intact bilaterally Extrem: General: Yes normal to inspection, Yes full ROM and Yes no clubbing, cyanosis or edema Psych: Appearance: grossly normal and well kempt Speech and movement: Normal speech and movement present Affect: normal affect Progress Note: A&P Assessment and plan (1) Osteomyelitis of right foot: Status: Acute Assessment and Plan: In short patient has a nonhealing right lower extremity ulcer. He will require right below-knee amputation. Risks benefits complications of the procedure were discussed in detail with the patient and the patient's who wears at bedside. They agreed and would like to move forward. We will schedule patient for tomorrow. Thank you for allowing us to assist in his care. Time Spent With Patient Time: Total time managing care of this patient today ____ minutes. Procedures Date of Service Date of Service: 10/01/22 Quality Stroke Does the patient have a stroke diagnosis?: No VTE Prior VTE?: No VTE Risk Level:: Medical - moderate - high VTE Device Contraindication: Treatment Not Indicated VTE Drug Contraindication: N/A - Med Ordered
[2022-10-01] MEDS: Insulin Lispro 100 UNIT/ML 3 ML VIAL SUBCUT ×3 (12:33→20:47)
--- NOTE | 2022-10-01 14:37 | HO.PM.IMPN ---
Subjective Subjective Date of Service: 10/01/22 Interval History: complains of increasing back pain secondary to hold lumbar fusion. Pain meds adjusted Review of Systems denies chest pain Denies shortness of breath Denies nausea vomiting diarrhea Denies fever chills Physical Exam Vital Signs: Vital Signs: Last Vital Signs Temp 97 F 10/01/22 07:03 Pulse 73 10/01/22 07:03 Resp 18 10/01/22 07:03 BP 154/72 H 10/01/22 07:03 Pulse Ox 96 10/01/22 07:03 O2 Del Method Room Air 10/01/22 07:03 BMI result Body Mass Index 29.0 Const: Other: Awake alert; comfortable Resp: Other: Clear to auscultation bilaterally no rales rhonchi or wheezes Cardio: Other: no S4; positive S1-S2; no S3 murmurs rubs or gallops GI: Other: soft nontender nondistended normoactive bowel sounds Extrem: Other: right heel with approximately 8 cm ulceration with follow all odor noted. Minimal surrounding erythema Objective Data Active Medications Acetaminophen (Acetaminophen 325 Mg Tablet) 650 mg PO Q6H PRN PRN Reason: Pain, Mild (Pain Scale 1-3) Last Admin: 10/01/22 11:40 Dose: 650 mg Documented By: THAIS Hydrocodone Bitart/Acetaminophen (Hydrocodone Bit/Acetam 10/325 Tablet) 1 tab PO Q4H PRN PRN Reason: Pain, Moderate(Pain Scale 4-6) Last Admin: 10/01/22 14:33 Dose: 1 tab Documented By: THAIS Atorvastatin Calcium (Atorvastatin Calcium 10 Mg Tablet) 10 mg PO DAILY [facility] Last Admin: 10/01/22 08:01 Dose: 10 mg Documented By: THAIS Dextrose (Dextrose 50 % 25 Gm/50 Ml Syringe) 25 gm IVPUSH Q15M PRN; Protocol PRN Reason: per Hypoglycemia Standing Ord. Docusate Sodium (Docusate Sodium 100 Mg Capsule) 100 mg PO DAILY PRN PRN Reason: Constipation Furosemide (Furosemide 20 Mg Tablet) 20 mg PO DAILY [facility]; Protocol Last Admin: 10/01/22 08:00 Dose: 20 mg Documented By: THAIS Glucose (Glucose Gel 15 Gm Gel..Gram.) 15 gm PO Q15M PRN; Protocol PRN Reason: per Hypoglycemia Standing Ord. Cefepime HCl 2 gm/ Sodium (Chloride) 50 mls @ 100 mls/hr IV Q12H [facility] Last Infusion: 10/01/22 13:35 Dose: 0 mls/hr Documented By: THAIS Vancomycin HCl 1,000 mg/ (Sodium Chloride) 270 mls @ 270 mls/hr IV Q24H [facility] Last Infusion: 10/01/22 12:13 Dose: 0 mls/hr Documented By: THAIS Insulin Glargine (Insulin Glargine,Hum.Rec.Anlog 100 Unit/Ml 10 Ml Vial) 4 unit SUBCUT BEDTIME RANDAL Last Admin: 09/30/22 20:34 Dose: 4 unit Documented By: ELE Insulin Human Lispro (Insulin Lispro 100 Unit/Ml 3 Ml Vial) 0 unit SUBCUT QIDACHS [facility]; Protocol Last Admin: 10/01/22 12:33 Dose: 8 unit Documented By: THAIS Lisinopril (Lisinopril 5 Mg Tablet) 5 mg PO DAILY [facility]; Protocol Last Admin: 10/01/22 08:00 Dose: 5 mg Documented By: THAIS Morphine Sulfate (Morphine Sulfate 4 Mg/Ml Cartridge) 4 mg IVPUSH Q3H PRN; Protocol PRN Reason: Pain, Severe (Pain Scale 7-10) Ondansetron HCl (Ondansetron Hcl 4 Mg/2 Ml Vial) 4 mg IVPUSH Q8H PRN PRN Reason: Nausea and Vomiting Pharmacy Consult (Consult Rx Perform Med Rec) 1 each MISCELLANE ONCE PRN PRN Reason: Consult order Pharmacy Consult (Consult Rx Vancomycin Dosing) 1 each MISCELLANE DAILY PRN PRN Reason: Consult order Tamsulosin HCl (Tamsulosin Hcl 0.4 Mg Capsule) 0.4 mg PO DAILY [facility] Last Admin: 10/01/22 08:00 Dose: 0.4 mg Documented By: THAIS Labs 09/26/22 06:15 10/01/22 08:01 Labs: Laboratory Results - last 24 hr 09/30/22 09/30/22 10/01/22 16:04 20:36 07:03 Estim Creat Clear Calc Estimated GFR POC Glucose 305 H 226 H 139 H Random Vancomycin 10/01/22 10/01/22 10/01/22 08:01 08:01 11:00 Estim Creat Clear Calc 76.8 Estimated GFR > 60 POC Glucose 257 H Random Vancomycin 17.2 Microbiology Microbiology Results: Microbiology 09/25/22 18:21 Blood Culture - Final Blood - Venous No growth after 5 days. 09/25/22 18:12 Blood Culture - Final Blood - Venous No growth after 5 days. 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 calcaneus -Vanco /Cefepime (6) -agrees to BKA; scheduled for a.m. - continue IV antibiotics until surgery 2.DM II - add back metformin to regimen - continue basilar insulin as ordered; lispro correctional scale - adjust as indicated 3.Peripheral artery disease -continue statin -will continue to hold Plavix; restart as per vascular surgery 4.Normocytic anemia - likely related to chronic disease - follow CBCs; transfuse as indicated Full code heparin Requires ongoing inpatient hospitalization for management of osteomyelitis of the calcaneus failing IV antibiotics alone. BKA plan for a.m. Time Spent With Patient Time: Total time managing care of this patient today ____ minutes. Quality Stroke Does the patient have a stroke diagnosis?: No VTE Prior VTE?: No VTE Risk Level:: Medical - moderate - high VTE Device Contraindication: Treatment Not Indicated VTE Drug Contraindication: N/A - Med Ordered
[2022-10-01 15:43] VITALS: BP 125/67; PULSE 66; RESP 16; TEMP 36.6; O2SAT 96
[2022-10-01 16:10] LABS: Glucose, Whole Blood 205 mg/dL (60-115)
--- NOTE | 2022-10-01 16:40 | MHC.CM.PN ---
Per MD rounds the patient is willing to proceed with the BKA. Dr Mckeon spoke with the pt about the infection and options to treat it. Plan is for OR with Dr Gonzalez. Date and time TBD.
[2022-10-01] MEDS: Morphine Sulfate 4 MG/ML CARTRIDGE IVPUSH (17:57)
[2022-10-01 19:04] VITALS: BP 152/68; PULSE 55; TEMP 36.4; O2SAT 95
[2022-10-01 20:19] LABS: Glucose, Whole Blood 237 mg/dL (60-115)
[2022-10-01] MEDS: Insulin Glargine,Hum.rec.anlog 100 UNIT/ML 10 ML VIAL SUBCUT (20:47)
[2022-10-02] VITALS (12 sets, daily range): BP systolic 106–184; BP diastolic 49–93; PULSE 67–103; RESP 14–20; TEMP 36.1–36.7; O2SAT 93–98
--- NOTE | 2022-10-02 | ECG_ITS ---
Test Reason : PRE OP Blood Pressure : / mmHG Vent. Rate : 073 BPM Atrial Rate : 000 BPM P-R Int : 000 ms QRS Dur : 088 ms QT Int : 418 ms P-R-T Axes : 000 027 032 degrees QTc Int : 460 ms Atrial fibrillation Low voltage QRS Abnormal ECG When compared with ECG of 25-SEP-2022 17:17, No significant change was found Referred By: Abhijit Mckeon Electronically Signed By:PIETER KHAN MD
[2022-10-02 05:16] LABS: Hematocrit 28.4 % (42.0-52.0); Hemoglobin 8.9 g/dl (14.0-18.0); Mean Corpuscular HGB Conc 31.3 g/dl (31.0-36.0); Mean Corpuscular Hemoglobin 26.8 pg (27.0-33.0); Mean Corpuscular Volume 85.5 fL (80.0-98.0); Mean Platelet Volume 8.9 fL (9.4-12.4); Platelet Count 414 X10*3/uL (160-400); Red Blood Count 3.32 X10*6/uL (4.60-5.80); Red Cell Distribution Width 14.6 % (11.0-16.0)
[2022-10-02 05:32] LABS: Anion Gap 17 (12-20); Blood Urea Nitrogen 13 mg/dL (9-16); Calcium 8.8 mg/dL (8.4-10.2); Carbon Dioxide 23 mmol/L (22-29); Chloride 103 mmol/L (96-108); Creatinine Clr Calc Pharmacy 73.1; Estimated Glomerular Filt Rate > 60; Glucose Random 108 mg/dL (60-115); Potassium 3.9 mmol/L (3.3-5.1); Sodium 139 mmol/L (135-145)
[2022-10-02 05:34] LABS: Vancomycin Random 17.5 mcg/mL (15-20)
[2022-10-02 07:53] LABS: Glucose, Whole Blood 119 mg/dL (60-115)
[2022-10-02] MEDS: Tamsulosin HCL 0.4 MG CAPSULE PO (08:07)
[2022-10-02] MEDS: Atorvastatin Calcium 10 MG TABLET PO (08:07)
[2022-10-02] MEDS: lisinopriL 5 MG TABLET PO (08:07)
[2022-10-02] MEDS: Furosemide 20 MG TABLET PO (08:07)
[2022-10-02] MEDS: vancomycin HCL 1,000 MG in 0.9 % Sodium Chloride 250 ML 270 MG IV (09:55)
[2022-10-02 11:30] LABS: Glucose, Whole Blood 123 mg/dL (60-115)
--- NOTE | 2022-10-02 13:43 | HO.PM.IMPN ---
Subjective Subjective Date of Service: 10/02/22 Interval History: no acute issues overnight. Remains NPO for surgery Review of Systems denies chest pain Denies shortness of breath Denies nausea vomiting diarrhea Denies fever chills Physical Exam Vital Signs: Vital Signs: Last Vital Signs Temp 97.3 F 10/02/22 07:23 Pulse 69 10/02/22 07:23 Resp 18 10/02/22 07:23 BP 184/84 H 10/02/22 07:23 Pulse Ox 95 10/02/22 07:23 O2 Del Method Room Air 10/02/22 07:23 BMI result Body Mass Index 29.0 Const: Other: Awake alert; comfortable Resp: Other: Clear to auscultation bilaterally no rales rhonchi or wheezes Cardio: Other: no S4; positive S1-S2; no S3 murmurs rubs or gallops GI: Other: soft nontender nondistended normoactive bowel sounds Extrem: Other: right heel with approximately 8 cm ulceration with follow all odor noted. Minimal surrounding erythema Objective Data Active Medications Acetaminophen (Acetaminophen 325 Mg Tablet) 650 mg PO Q6H PRN PRN Reason: Pain, Mild (Pain Scale 1-3) Last Admin: 10/01/22 11:40 Dose: 650 mg Documented By: THAIS Hydrocodone Bitart/Acetaminophen (Hydrocodone Bit/Acetam 10/325 Tablet) 1 tab PO Q4H PRN PRN Reason: Pain, Moderate(Pain Scale 4-6) Last Admin: 10/02/22 08:07 Dose: 1 tab Documented By: THAIS Atorvastatin Calcium (Atorvastatin Calcium 10 Mg Tablet) 10 mg PO DAILY [facility] Last Admin: 10/02/22 08:07 Dose: 10 mg Documented By: THAIS Dextrose (Dextrose 50 % 25 Gm/50 Ml Syringe) 25 gm IVPUSH Q15M PRN; Protocol PRN Reason: per Hypoglycemia Standing Ord. Docusate Sodium (Docusate Sodium 100 Mg Capsule) 100 mg PO DAILY PRN PRN Reason: Constipation Furosemide (Furosemide 20 Mg Tablet) 20 mg PO DAILY [facility]; Protocol Last Admin: 10/02/22 08:07 Dose: 20 mg Documented By: THAIS Glucose (Glucose Gel 15 Gm Gel..Gram.) 15 gm PO Q15M PRN; Protocol PRN Reason: per Hypoglycemia Standing Ord. Cefepime HCl 2 gm/ Sodium (Chloride) 50 mls @ 100 mls/hr IV Q12H [facility] Last Infusion: 10/02/22 00:30 Dose: 0 mls/hr Documented By: SATHYA Vancomycin HCl 1,000 mg/ (Sodium Chloride) 270 mls @ 270 mls/hr IV Q24H [facility] Last Infusion: 10/02/22 11:03 Dose: 0 mls/hr Documented By: THAIS Insulin Glargine (Insulin Glargine,Hum.Rec.Anlog 100 Unit/Ml 10 Ml Vial) 4 unit SUBCUT BEDTIME [facility] Last Admin: 10/01/22 20:47 Dose: 4 unit Documented By: MAURY Insulin Human Lispro (Insulin Lispro 100 Unit/Ml 3 Ml Vial) 0 unit SUBCUT QIDACHS [facility]; Protocol Last Admin: 10/02/22 08:07 Dose: Not Given Documented By: THAIS Non-Admin Reason: no coverage/npo Lisinopril (Lisinopril 5 Mg Tablet) 5 mg PO DAILY [facility]; Protocol Last Admin: 10/02/22 08:07 Dose: 5 mg Documented By: THAIS Morphine Sulfate (Morphine Sulfate 4 Mg/Ml Cartridge) 4 mg IVPUSH Q3H PRN; Protocol PRN Reason: Pain, Severe (Pain Scale 7-10) Last Admin: 10/01/22 17:57 Dose: 4 mg Documented By: THAIS Ondansetron HCl (Ondansetron Hcl 4 Mg/2 Ml Vial) 4 mg IVPUSH Q8H PRN PRN Reason: Nausea and Vomiting Pharmacy Consult (Consult Rx Perform Med Rec) 1 each MISCELLANE ONCE PRN PRN Reason: Consult order Pharmacy Consult (Consult Rx Vancomycin Dosing) 1 each MISCELLANE DAILY PRN PRN Reason: Consult order Tamsulosin HCl (Tamsulosin Hcl 0.4 Mg Capsule) 0.4 mg PO DAILY [facility] Last Admin: 10/02/22 08:07 Dose: 0.4 mg Documented By: THAIS Labs 10/02/22 05:04 10/02/22 05:04 Labs: Laboratory Results - last 24 hr 10/01/22 10/01/22 10/02/22 16:04 20:15 05:04 MCV MCH MCHC RDW Plt Count MPV Absolute Nucleated RBC Nucleated RBC % (auto) Anion Gap Estim Creat Clear Calc Estimated GFR POC Glucose 205 H 237 H Random Glucose Calcium Random Vancomycin 17.5 Blood Type Antibody Screen 10/02/22 10/02/22 10/02/22 05:04 05:04 05:04 MCV 85.5 MCH 26.8 L MCHC 31.3 RDW 14.6 Plt Count 414 H MPV 8.9 L Absolute Nucleated RBC 0.000 Nucleated RBC % (auto) 0.0 Anion Gap 17 Estim Creat Clear Calc 73.1 Cancelled Estimated GFR > 60 Cancelled POC Glucose Random Glucose 108 Calcium 8.8 Random Vancomycin Blood Type Antibody Screen 10/02/22 10/02/22 10/02/22 05:54 07:44 11:20 MCV MCH MCHC RDW Plt Count MPV Absolute Nucleated RBC Nucleated RBC % (auto) Anion Gap Estim Creat Clear Calc Estimated GFR POC Glucose 119 H 123 H Random Glucose Calcium Random Vancomycin Blood Type AB Negative Antibody Screen NEGATIVE ECG Attestation: I personally reviewed and interpreted this ECG as follows: Interpretation: EKG demonstrates will control ventricular response rate in the backdrop of chronic AFib. This was verified with [employer]. AFib goes back at least 2 years not a new finding. Unclear on reasoning for not anticoagulate. 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 calcaneus -Vanco /Cefepime (7) - scheduled for surgery this afternoon - patient is a moderate but acceptable cardiovascular risk for the planned procedure. There are no medically prohibitive issues at this time 2.DM II - add back metformin to regimen - continue basilar insulin as ordered; lispro correctional scale - adjust as indicated 3.Peripheral artery disease -continue statin -will continue to hold Plavix; restart as per vascular surgery 4.Normocytic anemia - likely related to chronic disease - follow CBCs; transfuse as indicated Full code heparin Requires ongoing inpatient hospitalization for management of osteomyelitis of the calcaneus failing IV antibiotics alone. BKA plan for a.m. Time Spent With Patient Time: Total time managing care of this patient today ____ minutes. Quality Stroke Does the patient have a stroke diagnosis?: No VTE Prior VTE?: No VTE Risk Level:: Medical - moderate - high VTE Device Contraindication: Treatment Not Indicated VTE Drug Contraindication: N/A - Med Ordered
[2022-10-02 15:00] LABS: Glucose, Whole Blood 134 mg/dL (60-115)
[2022-10-02] MEDS: cefEPime HCl 2 GM in 0.9 % Sodium Chloride 50 ML IV ×3 (15:21→23:35)
--- NOTE | 2022-10-02 16:40 | P.CONAN_ITS ---
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 (Acute) Past Medical History Medical History BPH (benign prostatic hyperplasia) Chronic low back pain Hyperlipidemia Peripheral arterial disease Type 2 diabetes mellitus Family History Family history of problems with anesthesia: No Surgical History History of Problems with Anesthesia: No Social History Social History Household Members: Sp[facility] Do you presently have visiting nurse or other home services: No Alcohol intake: current Alcohol intake frequency: holidays/special occasions only Patient Tobacco Use Status: Never used Tobacco service: No Meds Allergies Allergy/AdvReac Type Severity Reaction Status Date / Time No Known Allergies Allergy Verified 09/25/22 17:49 Active Medications: Current Medications Acetaminophen (Acetaminophen 325 Mg Tablet) 650 mg PO Q6H PRN PRN Reason: Pain, Mild (Pain Scale 1-3) Last Admin: 10/01/22 11:40 Dose: 650 mg Hydrocodone Bitart/Acetaminophen (Hydrocodone Bit/Acetam 10/325 Tablet) 1 tab PO Q4H PRN PRN Reason: Pain, Moderate(Pain Scale 4-6) Last Admin: 10/02/22 08:07 Dose: 1 tab Atorvastatin Calcium (Atorvastatin Calcium 10 Mg Tablet) 10 mg PO DAILY RANDAL Last Admin: 10/02/22 08:07 Dose: 10 mg Dextrose (Dextrose 50 % 25 Gm/50 Ml Syringe) 25 gm IVPUSH Q15M PRN; Protocol PRN Reason: per Hypoglycemia Standing Ord. Docusate Sodium (Docusate Sodium 100 Mg Capsule) 100 mg PO DAILY PRN PRN Reason: Constipation Furosemide (Furosemide 20 Mg Tablet) 20 mg PO DAILY RANDAL; Protocol Last Admin: 10/02/22 08:07 Dose: 20 mg Glucose (Glucose Gel 15 Gm Gel..Gram.) 15 gm PO Q15M PRN; Protocol PRN Reason: per Hypoglycemia Standing Ord. Cefepime HCl 2 gm/ Sodium (Chloride) 50 mls @ 100 mls/hr IV Q12H [facility] Last Infusion: 10/02/22 16:00 Dose: Infused Vancomycin HCl 1,000 mg/ (Sodium Chloride) 270 mls @ 270 mls/hr IV Q24H [facility] Last Infusion: 10/02/22 11:03 Dose: Infused Insulin Glargine (Insulin Glargine,Hum.Rec.Anlog 100 Unit/Ml 10 Ml Vial) 4 unit SUBCUT BEDTIME [facility] Last Admin: 10/01/22 20:47 Dose: 4 unit Insulin Human Lispro (Insulin Lispro 100 Unit/Ml 3 Ml Vial) 0 unit SUBCUT QIDACHS [facility]; Protocol Last Admin: 10/02/22 15:59 Dose: Not Given Lisinopril (Lisinopril 5 Mg Tablet) 5 mg PO DAILY [facility]; Protocol Last Admin: 10/02/22 08:07 Dose: 5 mg Morphine Sulfate (Morphine Sulfate 4 Mg/Ml Cartridge) 4 mg IVPUSH Q3H PRN; Protocol PRN Reason: Pain, Severe (Pain Scale 7-10) Last Admin: 10/01/22 17:57 Dose: 4 mg Ondansetron HCl (Ondansetron Hcl 4 Mg/2 Ml Vial) 4 mg IVPUSH Q8H PRN PRN Reason: Nausea and Vomiting Pharmacy Consult (Consult Rx Perform Med Rec) 1 each MISCELLANE ONCE PRN PRN Reason: Consult order Pharmacy Consult (Consult Rx Vancomycin Dosing) 1 each MISCELLANE DAILY PRN PRN Reason: Consult order Tamsulosin HCl (Tamsulosin Hcl 0.4 Mg Capsule) 0.4 mg PO DAILY [facility] Last Admin: 10/02/22 08:07 Dose: 0.4 mg Home Medications Medication Instructions Recorded Confirmed Last Taken Type atorvastatin 10 mg tablet 10 mg PO DAILY 09/25/22 09/25/22 09/25/22 History clopidogrel 75 mg tablet 75 mg PO DAILY 09/25/22 09/25/22 09/25/22 History collagenase clostridium histo. 250 1 appl topical DAILY 09/25/22 09/25/22 Unk nown History unit/gram topical ointment (Santyl) furosemide 20 mg tablet 20 mg PO DAILY 09/25/22 09/25/22 09/25/22 History hydrocodone 10 mg-acetaminophen 1 tab PO QID PRN pain 07/09/25/22 09/25/22 14:00 History 325 mg tablet insulin aspart U-100 100 unit/mL See Protocol subcut TIDAC 09/25/22 09/25/22 09/25/22 History (3 mL) subcutaneous pen (Novolog FlexPen U-100 Insulin aspart) insulin glargine-yfgn 100 unit/mL 6 unit subcut BEDTIME 09/25/22 09/25/22 09/24/22 History (3 mL) subcutaneous pen (Semglee (insulin glargine-yfgn) Pen) metformin 1,000 mg tablet 1,000 mg PO BID 09/25/22 09/25/22 09/25/22 History tamsulosin 0.4 mg capsule 0.4 mg PO DAILY 09/25/22 09/25/22 09/25/22 History Exam Exam Date and Time: October 02, 2022 1640 Height,Weight and Vital Signs: Height 5 ft 10 in Weight 201 lb 15.095 oz Last Vital Signs Temp 97.7 F 10/02/22 14:44 Pulse 69 10/02/22 14:44 Resp 17 10/02/22 14:44 BP 181/71 H 10/02/22 14:44 Pulse Ox 96 10/02/22 14:44 O2 Del Method Room Air 10/02/22 14:44 Pertinent Lab Results Pertinent Lab Results: Laboratory Tests 09/25/22 09/25/22 09/25/22 18:11 18:11 18:11 WBC 10.8 RBC 3.18 L Hgb 8.4 L Hct 26.7 L MCV 84.0 MCH 26.4 L MCHC 31.5 RDW 14.6 Plt Count 354 MPV 8.9 L Immature Gran % (Auto) Neut % (Auto) Lymph % (Auto) [place] % (Auto) Eos % (Auto) Baso % (Auto) Lymph # (Auto) [place] # (Auto) Eos # (Auto) Baso # (Auto) Abs Immat Gran (auto) Absolute Neuts (auto) Absolute Nucleated RBC 0.000 Nucleated RBC % (auto) 0.0 ESR PT INR Sodium 135 Potassium 4.6 Chloride 102 Carbon Dioxide 25 Anion Gap 13 BUN 25 H Creatinine 0.98 Estim Creat Clear Calc 56.9 Estimated GFR > 60 POC Glucose Random Glucose 121 H Estimat Average Glucose 154 Hemoglobin A1c % 7.0 Lactic Acid Calcium 8.9 Total Bilirubin 0.4 AST 23 ALT 17 Alkaline Phosphatase 80 C-Reactive Protein 11.87 H Total Protein 7.1 Albumin 3.3 L Urine Color Urine Appearance Urine pH Ur Specific [place] Urine Protein Urine Glucose (UA) Urine Ketones Urine Blood Urine Nitrite Ur Leukocyte Esterase Urine RBC Urine WBC Ur Squamous Epith Cells Urine Bacteria Hyaline Casts Vancomycin Trough Random Vancomycin Influenza Type A (PCR) Influenza Type B (PCR) RSV RNA Qual (PCR) SARS-CoV-2 RNA (RT-PCR) Blood Type Antibody Screen 09/25/22 09/25/22 09/25/22 18:12 18:12 18:54 WBC RBC Hgb Hct MCV MCH MCHC RDW Plt Count MPV Immature Gran % (Auto) Neut % (Auto) Lymph % (Auto) [place] % (Auto) Eos % (Auto) Baso % (Auto) Lymph # (Auto) [place] # (Auto) Eos # (Auto) Baso # (Auto) Abs Immat Gran (auto) Absolute Neuts (auto) Absolute Nucleated RBC Nucleated RBC % (auto) ESR PT 15.3 H INR 1.3 H Sodium Potassium Chloride Carbon Dioxide Anion Gap BUN Creatinine Estim Creat Clear Calc Estimated GFR POC Glucose Random Glucose Estimat Average Glucose Hemoglobin A1c % Lactic Acid 1.1 Calcium Total Bilirubin AST ALT Alkaline Phosphatase C-Reactive Protein Total Protein Albumin Urine Color Yellow Urine Appearance Clear Urine pH 6.0 Ur Specific [place] 1.010 Urine Protein 100 (2+) H Urine Glucose (UA) Negative Urine Ketones Negative Urine Blood Trace H Urine Nitrite Negative Ur Leukocyte Esterase Negative Urine RBC 0-2 Urine WBC 0-5 Ur Squamous Epith Cells 0-2 Urine Bacteria None Seen Hyaline Casts 0-2 Vancomycin Trough Random Vancomycin Influenza Type A (PCR) Influenza Type B (PCR) RSV RNA Qual (PCR) SARS-CoV-2 RNA (RT-PCR) Blood Type Antibody Screen 09/25/22 09/25/22 09/25/22 19:52 19:52 21:29 WBC RBC Hgb Hct MCV MCH MCHC RDW Plt Count MPV Immature Gran % (Auto) Neut % (Auto) Lymph % (Auto) [place] % (Auto) Eos % (Auto) Baso % (Auto) Lymph # (Auto) [place] # (Auto) Eos # (Auto) Baso # (Auto) Abs Immat Gran (auto) Absolute Neuts (auto) Absolute Nucleated RBC Nucleated RBC % (auto) ESR 105 H PT INR Sodium Potassium Chloride Carbon Dioxide Anion Gap BUN Creatinine Estim Creat Clear Calc Estimated GFR POC Glucose 124 H Random Glucose Estimat Average Glucose Hemoglobin A1c % Lactic Acid Calcium Total Bilirubin AST ALT Alkaline Phosphatase C-Reactive Protein Total Protein Albumin Urine Color Urine Appearance Urine pH Ur Specific [place] Urine Protein Urine Glucose (UA) Urine Ketones Urine Blood Urine Nitrite Ur Leukocyte Esterase Urine RBC Urine WBC Ur Squamous Epith Cells Urine Bacteria Hyaline Casts Vancomycin Trough Random Vancomycin Influenza Type A (PCR) NEGATIVE Influenza Type B (PCR) NEGATIVE RSV RNA Qual (PCR) NEGATIVE SARS-CoV-2 RNA (RT-PCR) NEGATIVE Blood Type Antibody Screen 09/26/22 09/26/22 09/26/22 06:15 06:15 07:33 WBC 9.1 RBC 3.33 L Hgb 9.0 L Hct 29.2 L MCV 87.7 MCH 27.0 MCHC 30.8 L RDW 14.7 Plt Count 355 MPV 9.3 L Immature Gran % (Auto) 0.4 Neut % (Auto) 78.4 H Lymph % (Auto) 8.0 L [place] % (Auto) 9.6 Eos % (Auto) 3.2 Baso % (Auto) 0.4 Lymph # (Auto) 0.7 L [place] # (Auto) 0.9 Eos # (Auto) 0.3 Baso # (Auto) 0.0 Abs Immat Gran (auto) 0.04 H Absolute Neuts (auto) 7.1 Absolute Nucleated RBC 0.000 Nucleated RBC % (auto) 0.0 ESR PT INR Sodium 137 Potassium 4.8 Chloride 105 Carbon Dioxide 24 Anion Gap 13 BUN 21 H Creatinine 0.96 Estim Creat Clear Calc 64.0 Estimated GFR > 60 POC Glucose 121 H Random Glucose 125 H Estimat Average Glucose Hemoglobin A1c % Lactic Acid Calcium 9.2 Total Bilirubin AST ALT Alkaline Phosphatase C-Reactive Protein Total Protein Albumin Urine Color Urine Appearance Urine pH Ur Specific [place] Urine Protein Urine Glucose (UA) Urine Ketones Urine Blood Urine Nitrite Ur Leukocyte Esterase Urine RBC Urine WBC Ur Squamous Epith Cells Urine Bacteria Hyaline Casts Vancomycin Trough Random Vancomycin Influenza Type A (PCR) Influenza Type B (PCR) RSV RNA Qual (PCR) SARS-CoV-2 RNA (RT-PCR) Blood Type Antibody Screen 09/26/22 09/26/22 09/26/22 11:13 16:09 20:17 WBC RBC Hgb Hct MCV MCH MCHC RDW Plt Count MPV Immature Gran % (Auto) Neut % (Auto) Lymph % (Auto) [place] % (Auto) Eos % (Auto) Baso % (Auto) Lymph # (Auto) [place] # (Auto) Eos # (Auto) Baso # (Auto) Abs Immat Gran (auto) Absolute Neuts (auto) Absolute Nucleated RBC Nucleated RBC % (auto) ESR PT INR Sodium Potassium Chloride Carbon Dioxide Anion Gap BUN Creatinine Estim Creat Clear Calc Estimated GFR POC Glucose 189 H 208 H 193 H Random Glucose Estimat Average Glucose Hemoglobin A1c % Lactic Acid Calcium Total Bilirubin AST ALT Alkaline Phosphatase C-Reactive Protein Total Protein Albumin Urine Color Urine Appearance Urine pH Ur Specific [place] Urine Protein Urine Glucose (UA) Urine Ketones Urine Blood Urine Nitrite Ur Leukocyte Esterase Urine RBC Urine WBC Ur Squamous Epith Cells Urine Bacteria Hyaline Casts Vancomycin Trough Random Vancomycin Influenza Type A (PCR) Influenza Type B (PCR) RSV RNA Qual (PCR) SARS-CoV-2 RNA (RT-PCR) Blood Type Antibody Screen 09/27/22 09/27/22 09/27/22 07:00 08:10 08:10 WBC RBC Hgb Hct MCV MCH MCHC RDW Plt Count MPV Immature Gran % (Auto) Neut % (Auto) Lymph % (Auto) [place] % (Auto) Eos % (Auto) Baso % (Auto) Lymph # (Auto) [place] # (Auto) Eos # (Auto) Baso # (Auto) Abs Immat Gran (auto) Absolute Neuts (auto) Absolute Nucleated RBC Nucleated RBC % (auto) ESR PT INR Sodium 136 Potassium 4.7 Chloride 106 Carbon Dioxide 22 Anion Gap 13 BUN 16 Creatinine 0.90 Estim Creat Clear Calc 68.2 Estimated GFR > 60 POC Glucose 137 H Random Glucose 149 H Estimat Average Glucose Hemoglobin A1c % Lactic Acid Calcium 8.9 Total Bilirubin AST ALT Alkaline Phosphatase C-Reactive Protein Total Protein Albumin Urine Color Urine Appearance Urine pH Ur Specific [place] Urine Protein Urine Glucose (UA) Urine Ketones Urine Blood Urine Nitrite Ur Leukocyte Esterase Urine RBC Urine WBC Ur Squamous Epith Cells Urine Bacteria Hyaline Casts Vancomycin Trough 17.1 Random Vancomycin Influenza Type A (PCR) Influenza Type B (PCR) RSV RNA Qual (PCR) SARS-CoV-2 RNA (RT-PCR) Blood Type Antibody Screen 09/27/22 09/27/22 09/27/22 11:49 16:18 20:35 WBC RBC Hgb Hct MCV MCH MCHC RDW Plt Count MPV Immature Gran % (Auto) Neut % (Auto) Lymph % (Auto) [place] % (Auto) Eos % (Auto) Baso % (Auto) Lymph # (Auto) [place] # (Auto) Eos # (Auto) Baso # (Auto) Abs Immat Gran (auto) Absolute Neuts (auto) Absolute Nucleated RBC Nucleated RBC % (auto) ESR PT INR Sodium Potassium Chloride Carbon Dioxide Anion Gap BUN Creatinine Estim Creat Clear Calc Estimated GFR POC Glucose 225 H 228 H 182 H Random Glucose Estimat Average Glucose Hemoglobin A1c % Lactic Acid Calcium Total Bilirubin AST ALT Alkaline Phosphatase C-Reactive Protein Total Protein Albumin Urine Color Urine Appearance Urine pH Ur Specific [place] Urine Protein Urine Glucose (UA) Urine Ketones Urine Blood Urine Nitrite Ur Leukocyte Esterase Urine RBC Urine WBC Ur Squamous Epith Cells Urine Bacteria Hyaline Casts Vancomycin Trough Random Vancomycin Influenza Type A (PCR) Influenza Type B (PCR) RSV RNA Qual (PCR) SARS-CoV-2 RNA (RT-PCR) Blood Type Antibody Screen 09/28/22 09/28/22 09/28/22 07:05 08:35 08:35 WBC RBC Hgb Hct MCV MCH MCHC RDW Plt Count MPV Immature Gran % (Auto) Neut % (Auto) Lymph % (Auto) [place] % (Auto) Eos % (Auto) Baso % (Auto) Lymph # (Auto) [place] # (Auto) Eos # (Auto) Baso # (Auto) Abs Immat Gran (auto) Absolute Neuts (auto) Absolute Nucleated RBC Nucleated RBC % (auto) ESR PT INR Sodium Potassium Chloride Carbon Dioxide Anion Gap BUN Creatinine 0.88 Estim Creat Clear Calc 69.8 Estimated GFR > 60 POC Glucose 104 Random Glucose Estimat Average Glucose Hemoglobin A1c % Lactic Acid Calcium Total Bilirubin AST ALT Alkaline Phosphatase C-Reactive Protein Total Protein Albumin Urine Color Urine Appearance Urine pH Ur Specific [place] Urine Protein Urine Glucose (UA) Urine Ketones Urine Blood Urine Nitrite Ur Leukocyte Esterase Urine RBC Urine WBC Ur Squamous Epith Cells Urine Bacteria Hyaline Casts Vancomycin Trough Random Vancomycin 19.7 Influenza Type A (PCR) Influenza Type B (PCR) RSV RNA Qual (PCR) SARS-CoV-2 RNA (RT-PCR) Blood Type Antibody Screen 09/28/22 09/28/22 09/28/22 11:29 16:10 20:19 WBC RBC Hgb Hct MCV MCH MCHC RDW Plt Count MPV Immature Gran % (Auto) Neut % (Auto) Lymph % (Auto) [place] % (Auto) Eos % (Auto) Baso % (Auto) Lymph # (Auto) [place] # (Auto) Eos # (Auto) Baso # (Auto) Abs Immat Gran (auto) Absolute Neuts (auto) Absolute Nucleated RBC Nucleated RBC % (auto) ESR PT INR Sodium Potassium Chloride Carbon Dioxide Anion Gap BUN Creatinine Estim Creat Clear Calc Estimated GFR POC Glucose 250 H 225 H 210 H Random Glucose Estimat Average Glucose Hemoglobin A1c % Lactic Acid Calcium Total Bilirubin AST ALT Alkaline Phosphatase C-Reactive Protein Total Protein Albumin Urine Color Urine Appearance Urine pH Ur Specific [place] Urine Protein Urine Glucose (UA) Urine Ketones Urine Blood Urine Nitrite Ur Leukocyte Esterase Urine RBC Urine WBC Ur Squamous Epith Cells Urine Bacteria Hyaline Casts Vancomycin Trough Random Vancomycin Influenza Type A (PCR) Influenza Type B (PCR) RSV RNA Qual (PCR) SARS-CoV-2 RNA (RT-PCR) Blood Type Antibody Screen 09/29/22 09/29/22 09/29/22 06:56 08:03 08:03 WBC RBC Hgb Hct MCV MCH MCHC RDW Plt Count MPV Immature Gran % (Auto) Neut % (Auto) Lymph % (Auto) [place] % (Auto) Eos % (Auto) Baso % (Auto) Lymph # (Auto) [place] # (Auto) Eos # (Auto) Baso # (Auto) Abs Immat Gran (auto) Absolute Neuts (auto) Absolute Nucleated RBC Nucleated RBC % (auto) ESR PT INR Sodium Potassium Chloride Carbon Dioxide Anion Gap BUN Creatinine 0.98 Estim Creat Clear Calc 62.7 Estimated GFR > 60 POC Glucose 124 H Random Glucose Estimat Average Glucose Hemoglobin A1c % Lactic Acid Calcium Total Bilirubin AST ALT Alkaline Phosphatase C-Reactive Protein Total Protein Albumin Urine Color Urine Appearance Urine pH Ur Specific [place] Urine Protein Urine Glucose (UA) Urine Ketones Urine Blood Urine Nitrite Ur Leukocyte Esterase Urine RBC Urine WBC Ur Squamous Epith Cells Urine Bacteria Hyaline Casts Vancomycin Trough Random Vancomycin 19.0 Influenza Type A (PCR) Influenza Type B (PCR) RSV RNA Qual (PCR) SARS-CoV-2 RNA (RT-PCR) Blood Type Antibody Screen 09/29/22 09/29/22 09/29/22 11:07 16:10 19:58 WBC RBC Hgb Hct MCV MCH MCHC RDW Plt Count MPV Immature Gran % (Auto) Neut % (Auto) Lymph % (Auto) [place] % (Auto) Eos % (Auto) Baso % (Auto) Lymph # (Auto) [place] # (Auto) Eos # (Auto) Baso # (Auto) Abs Immat Gran (auto) Absolute Neuts (auto) Absolute Nucleated RBC Nucleated RBC % (auto) ESR PT INR Sodium Potassium Chloride Carbon Dioxide Anion Gap BUN Creatinine Estim Creat Clear Calc Estimated GFR POC Glucose 237 H 169 H 274 H Random Glucose Estimat Average Glucose Hemoglobin A1c % Lactic Acid Calcium Total Bilirubin AST ALT Alkaline Phosphatase C-Reactive Protein Total Protein Albumin Urine Color Urine Appearance Urine pH Ur Specific [place] Urine Protein Urine Glucose (UA) Urine Ketones Urine Blood Urine Nitrite Ur Leukocyte Esterase Urine RBC Urine WBC Ur Squamous Epith Cells Urine Bacteria Hyaline Casts Vancomycin Trough Random Vancomycin Influenza Type A (PCR) Influenza Type B (PCR) RSV RNA Qual (PCR) SARS-CoV-2 RNA (RT-PCR) Blood Type Antibody Screen 09/30/22 09/30/22 09/30/22 05:38 07:42 08:49 WBC RBC Hgb Hct MCV MCH MCHC RDW Plt Count MPV Immature Gran % (Auto) Neut % (Auto) Lymph % (Auto) [place] % (Auto) Eos % (Auto) Baso % (Auto) Lymph # (Auto) [place] # (Auto) Eos # (Auto) Baso # (Auto) Abs Immat Gran (auto) Absolute Neuts (auto) Absolute Nucleated RBC Nucleated RBC % (auto) ESR PT INR Sodium Potassium Chloride Carbon Dioxide Anion Gap BUN Creatinine 0.83 Estim Creat Clear Calc 74.0 Estimated GFR > 60 POC Glucose 124 H Random Glucose Estimat Average Glucose Hemoglobin A1c % Lactic Acid Calcium Total Bilirubin AST ALT Alkaline Phosphatase C-Reactive Protein Total Protein Albumin Urine Color Urine Appearance Urine pH Ur Specific [place] Urine Protein Urine Glucose (UA) Urine Ketones Urine Blood Urine Nitrite Ur Leukocyte Esterase Urine RBC Urine WBC Ur Squamous Epith Cells Urine Bacteria Hyaline Casts Vancomycin Trough Random Vancomycin 16.2 Influenza Type A (PCR) Influenza Type B (PCR) RSV RNA Qual (PCR) SARS-CoV-2 RNA (RT-PCR) Blood Type Antibody Screen 09/30/22 09/30/22 09/30/22 11:06 11:11 16:04 WBC RBC Hgb Hct MCV MCH MCHC RDW Plt Count MPV Immature Gran % (Auto) Neut % (Auto) Lymph % (Auto) [place] % (Auto) Eos % (Auto) Baso % (Auto) Lymph # (Auto) [place] # (Auto) Eos # (Auto) Baso # (Auto) Abs Immat Gran (auto) Absolute Neuts (auto) Absolute Nucleated RBC Nucleated RBC % (auto) ESR PT INR Sodium Potassium Chloride Carbon Dioxide Anion Gap BUN Creatinine Estim Creat Clear Calc Estimated GFR POC Glucose 315 H 235 H 305 H Random Glucose Estimat Average Glucose Hemoglobin A1c % Lactic Acid Calcium Total Bilirubin AST ALT Alkaline Phosphatase C-Reactive Protein Total Protein Albumin Urine Color Urine Appearance Urine pH Ur Specific [place] Urine Protein Urine Glucose (UA) Urine Ketones Urine Blood Urine Nitrite Ur Leukocyte Esterase Urine RBC Urine WBC Ur Squamous Epith Cells Urine Bacteria Hyaline Casts Vancomycin Trough Random Vancomycin Influenza Type A (PCR) Influenza Type B (PCR) RSV RNA Qual (PCR) SARS-CoV-2 RNA (RT-PCR) Blood Type Antibody Screen 09/30/22 10/01/22 10/01/22 20:36 07:03 08:01 WBC RBC Hgb Hct MCV MCH MCHC RDW Plt Count MPV Immature Gran % (Auto) Neut % (Auto) Lymph % (Auto) [place] % (Auto) Eos % (Auto) Baso % (Auto) Lymph # (Auto) [place] # (Auto) Eos # (Auto) Baso # (Auto) Abs Immat Gran (auto) Absolute Neuts (auto) Absolute Nucleated RBC Nucleated RBC % (auto) ESR PT INR Sodium Potassium Chloride Carbon Dioxide Anion Gap BUN Creatinine Estim Creat Clear Calc Estimated GFR POC Glucose 226 H 139 H Random Glucose Estimat Average Glucose Hemoglobin A1c % Lactic Acid Calcium Total Bilirubin AST ALT Alkaline Phosphatase C-Reactive Protein Total Protein Albumin Urine Color Urine Appearance Urine pH Ur Specific [place] Urine Protein Urine Glucose (UA) Urine Ketones Urine Blood Urine Nitrite Ur Leukocyte Esterase Urine RBC Urine WBC Ur Squamous Epith Cells Urine Bacteria Hyaline Casts Vancomycin Trough Random Vancomycin 17.2 Influenza Type A (PCR) Influenza Type B (PCR) RSV RNA Qual (PCR) SARS-CoV-2 RNA (RT-PCR) Blood Type Antibody Screen 10/01/22 10/01/22 10/01/22 08:01 11:00 16:04 WBC RBC Hgb Hct MCV MCH MCHC RDW Plt Count MPV Immature Gran % (Auto) Neut % (Auto) Lymph % (Auto) [place] % (Auto) Eos % (Auto) Baso % (Auto) Lymph # (Auto) [place] # (Auto) Eos # (Auto) Baso # (Auto) Abs Immat Gran (auto) Absolute Neuts (auto) Absolute Nucleated RBC Nucleated RBC % (auto) ESR PT INR Sodium Potassium Chloride Carbon Dioxide Anion Gap BUN Creatinine 0.80 Estim Creat Clear Calc 76.8 Estimated GFR > 60 POC Glucose 257 H 205 H Random Glucose Estimat Average Glucose Hemoglobin A1c % Lactic Acid Calcium Total Bilirubin AST ALT Alkaline Phosphatase C-Reactive Protein Total Protein Albumin Urine Color Urine Appearance Urine pH Ur Specific [place] Urine Protein Urine Glucose (UA) Urine Ketones Urine Blood Urine Nitrite Ur Leukocyte Esterase Urine RBC Urine WBC Ur Squamous Epith Cells Urine Bacteria Hyaline Casts Vancomycin Trough Random Vancomycin Influenza Type A (PCR) Influenza Type B (PCR) RSV RNA Qual (PCR) SARS-CoV-2 RNA (RT-PCR) Blood Type Antibody Screen 10/01/22 10/02/22 10/02/22 20:15 05:04 05:04 WBC 10.0 RBC 3.32 L Hgb 8.9 L Hct 28.4 L MCV 85.5 MCH 26.8 L MCHC 31.3 RDW 14.6 Plt Count 414 H MPV 8.9 L Immature Gran % (Auto) Neut % (Auto) Lymph % (Auto) [place] % (Auto) Eos % (Auto) Baso % (Auto) Lymph # (Auto) [place] # (Auto) Eos # (Auto) Baso # (Auto) Abs Immat Gran (auto) Absolute Neuts (auto) Absolute Nucleated RBC 0.000 Nucleated RBC % (auto) 0.0 ESR PT INR Sodium Potassium Chloride Carbon Dioxide Anion Gap BUN Creatinine Estim Creat Clear Calc Estimated GFR POC Glucose 237 H Random Glucose Estimat Average Glucose Hemoglobin A1c % Lactic Acid Calcium Total Bilirubin AST ALT Alkaline Phosphatase C-Reactive Protein Total Protein Albumin Urine Color Urine Appearance Urine pH Ur Specific [place] Urine Protein Urine Glucose (UA) Urine Ketones Urine Blood Urine Nitrite Ur Leukocyte Esterase Urine RBC Urine WBC Ur Squamous Epith Cells Urine Bacteria Hyaline Casts Vancomycin Trough Random Vancomycin 17.5 Influenza Type A (PCR) Influenza Type B (PCR) RSV RNA Qual (PCR) SARS-CoV-2 RNA (RT-PCR) Blood Type Antibody Screen 10/02/22 10/02/22 10/02/22 05:04 05:04 05:54 WBC RBC Hgb Hct MCV MCH MCHC RDW Plt Count MPV Immature Gran % (Auto) Neut % (Auto) Lymph % (Auto) [place] % (Auto) Eos % (Auto) Baso % (Auto) Lymph # (Auto) [place] # (Auto) Eos # (Auto) Baso # (Auto) Abs Immat Gran (auto) Absolute Neuts (auto) Absolute Nucleated RBC Nucleated RBC % (auto) ESR PT INR Sodium 139 Potassium 3.9 Chloride 103 Carbon Dioxide 23 Anion Gap 17 BUN 13 Creatinine 0.84 Cancelled Estim Creat Clear Calc 73.1 Cancelled Estimated GFR > 60 Cancelled POC Glucose Random Glucose 108 Estimat Average Glucose Hemoglobin A1c % Lactic Acid Calcium 8.8 Total Bilirubin AST ALT Alkaline Phosphatase C-Reactive Protein Total Protein Albumin Urine Color Urine Appearance Urine pH Ur Specific [place] Urine Protein Urine Glucose (UA) Urine Ketones Urine Blood Urine Nitrite Ur Leukocyte Esterase Urine RBC Urine WBC Ur Squamous Epith Cells Urine Bacteria Hyaline Casts Vancomycin Trough Random Vancomycin Influenza Type A (PCR) Influenza Type B (PCR) RSV RNA Qual (PCR) SARS-CoV-2 RNA (RT-PCR) Blood Type AB Negative Antibody Screen NEGATIVE 10/02/22 10/02/22 10/02/22 07:44 11:20 14:55 WBC RBC Hgb Hct MCV MCH MCHC RDW Plt Count MPV Immature Gran % (Auto) Neut % (Auto) Lymph % (Auto) [place] % (Auto) Eos % (Auto) Baso % (Auto) Lymph # (Auto) [place] # (Auto) Eos # (Auto) Baso # (Auto) Abs Immat Gran (auto) Absolute Neuts (auto) Absolute Nucleated RBC Nucleated RBC % (auto) ESR PT INR Sodium Potassium Chloride Carbon Dioxide Anion Gap BUN Creatinine Estim Creat Clear Calc Estimated GFR POC Glucose 119 H 123 H 134 H Random Glucose Estimat Average Glucose Hemoglobin A1c % Lactic Acid Calcium Total Bilirubin AST ALT Alkaline Phosphatase C-Reactive Protein Total Protein Albumin Urine Color Urine Appearance Urine pH Ur Specific [place] Urine Protein Urine Glucose (UA) Urine Ketones Urine Blood Urine Nitrite Ur Leukocyte Esterase Urine RBC Urine WBC Ur Squamous Epith Cells Urine Bacteria Hyaline Casts Vancomycin Trough Random Vancomycin Influenza Type A (PCR) Influenza Type B (PCR) RSV RNA Qual (PCR) SARS-CoV-2 RNA (RT-PCR) Blood Type Antibody Screen Airway Mallampati Class: II TM Dist: >3cm Neck ROM: Full Loose/Missing/Broken Teeth: Yes Assessment and Plan Assessment Anesthesia Assessment: Anesthesia Plan Discussed and Chart Reviewed Final Anesthetic Review Family History of Problems with Anesthesia: No History of Problems with Anesthesia: No NPO: Yes ASA Class: III Final Preanesthetic Review: No Changes in Pt Med Stat, Meds/Allgs Chart Reviewed, Consent Obtained/Reviewed and Anes Risks/Benef Reviewed Patient Risk: Intermediate Procedure Risk: Intermediate Anesthetic Plan Anesthetic Plan: GA Disposition: Standard PACU
--- NOTE | 2022-10-02 17:05 | P.OP_ITS ---
Operative Note Operative Note Date of Service: 10/02/22 Narrative: Operative note by [facility] Preoperative diagnosis: 1. Ischemic Right lower extremity 2. Diabetic foot ulcer Postoperative diagnosis: Same Procedure: 1. right Leg below-knee amputation 2. Myodesis Surgeon:Berry Gonzalez M.D. Airplane Dispatcher: non Anesthesia: General Specimens: One Drains: None Estimated blood loss:250 ml Indications: 87-year-old diabetic gentleman with history left BKA at at outside institution had developed a right heel ulcer. It had been progressing for last 6 months. There was multiple attempts at conservative management which were refractory to treatment. He had exposed calcaneus with obvious osteomyelitis. He now presents for below-knee amputation The patient has signed the informed consent after reviewing risks, complications, benefits, and alternatives prev iously discussed with the patient. The patient was given the opportunity to ask any additional questions or voice any concerns. All questions were answered to the patient's satisfaction. Procedure in detail: The patient was brought to the operating room prior to which a time-out was called for patient identification and site verification. The patient was per Al in a supine position. The right lower extremity was prepped and draped in the standard surgical fashion. The intended incision site was marked. The anterior aspect of the incision was made approximately 10 cm below the right tibial tuberosity. The incision was carried through the fascia. The anterior compartment muscles were divided using electrocautery dissection. The tibia and fibula were cleared. Periosteal elevator was used to clear the periosteum from the tibia. The tibia was transected with a power reciprocating saw. This was done in a reverse hockey stick shaped cut. The fibula was transected approximately 2 in above the tibial transection site once again with a reciprocating saw. The amputation was then completed using electrocautery to create the posterior flap. The flap was debulked using electr ocautery and Metzenbaum scissors. The nerve was placed on traction and ligated and divided sharply. The anterior tibial posterior tibial and peroneal vessels were or identified and tied off with 2-0 silk ties. We then performed a myodesis. In the tibia on the medial and lateral aspect using a drill holes were then created. Using 2-0 Polysorb the muscle was then buttressed to the tibia. The wound was then closed using 2 0 poly Sorb. This was used to bring together the fascia from the posterior flap to the anterior cut. We then reapproximated the superficial layer with 3-0 poly Sorb suture. Finally skin was closed using 2 0 nylon in a mattress fashion. In addition we used skin clips. The stump was then room wrapped with Xeroform Kerlix and an Al wrap. The patient tolerated the procedure well. Brought to recovery with stable vitals. At the end the case sponge needle instrument counts were correct x2. This note is constructed using voice recognition software. While every effort has been made to ensure accuracy, manager corporate communications errors may have been included. Thank you for allowing me to participate in the care of your patient. Yours sincerely, Berry Gonzalez MD, FACS, R.P.V.I.
[2022-10-02] MEDS: Acetaminophen 1,000 MG/100 ML PIGGYBACK 400 MG IV (17:18)
[2022-10-02] MEDS: HYDROmorphone HCl 0.5 MG/0.5 ML SYRINGE 0.25 MG IVPUSH ×2 (17:23→17:28)
[2022-10-02] MEDS: oxyCODONE HCl Immed Release 5 MG TABLET PO (17:37)
--- NOTE | 2022-10-02 18:20 | PC.NURSE ---
PATIENT MEDICATION FOR PAIN UNABLE TO SUCCESSFULLY SCAN WITH SCANNER OVERRIDE REQUIRED.
[2022-10-02 18:27] LABS: Glucose, Whole Blood 162 mg/dL (60-115)
[2022-10-02] MEDS: Morphine Sulfate 4 MG/ML CARTRIDGE IVPUSH ×2 (18:29→23:35)
[2022-10-02 20:51] LABS: Glucose, Whole Blood 297 mg/dL (60-115)
[2022-10-02] MEDS: Insulin Lispro 100 UNIT/ML 3 ML VIAL SUBCUT (21:11)
[2022-10-02] MEDS: Insulin Glargine,Hum.rec.anlog 100 UNIT/ML 10 ML VIAL SUBCUT (21:12)
[2022-10-03] VITALS (7 sets, daily range): BP systolic 120–148; BP diastolic 61–70; PULSE 70–84; RESP 17–20; TEMP 36.6–37.1; O2SAT 93–96
[2022-10-03] MEDS: Morphine Sulfate 4 MG/ML CARTRIDGE IVPUSH ×6 (04:36→21:06)
[2022-10-03 07:24] LABS: Glucose, Whole Blood 186 mg/dL (60-115)
[2022-10-03 07:27] LABS: Creatinine Clr Calc Pharmacy 54.8; Estimated Glomerular Filt Rate > 60
[2022-10-03] MEDS: Tamsulosin HCL 0.4 MG CAPSULE PO (07:54)
[2022-10-03] MEDS: lisinopriL 5 MG TABLET PO (07:55)
[2022-10-03] MEDS: Atorvastatin Calcium 10 MG TABLET PO (07:55)
[2022-10-03] MEDS: Furosemide 20 MG TABLET PO (07:55)
[2022-10-03] MEDS: Insulin Lispro 100 UNIT/ML 3 ML VIAL SUBCUT ×4 (07:55→21:05)
[2022-10-03 09:15] LABS: Vancomycin Random 18.2 mcg/mL (15-20)
[2022-10-03] MEDS: vancomycin HCL 1,000 MG in 0.9 % Sodium Chloride 250 ML 270 MG IV (09:25)
[2022-10-03] MEDS: cefEPime HCl 2 GM in 0.9 % Sodium Chloride 50 ML IV (11:00)
--- NOTE | 2022-10-03 11:08 | HO.VASCPN ---
Subjective Subjective Date of Service: 10/03/22 Patient reports: no new complaints and feels better Interval history: Patient seen and examined. Postop day 1 status post BKA. Reports that he is doing fairly well. Pain well controlled. In much better spirits today. Much more clear. Anxious to know the next step of his plan. Physical Exam Vital Signs: Vital Signs: Last Vital Signs Temp 97.8 F 10/03/22 07:25 Pulse 72 10/03/22 07:25 Resp 18 10/03/22 07:25 BP 140/70 H 10/03/22 07:25 Pulse Ox 95 10/03/22 07:25 O2 Del Method Room Air 10/03/22 07:25 O2 Flow Rate 2 10/02/22 18:16 BMI result Body Mass Index 29.0 Const: General: cooperative, healthy appearing and comfortable Orientation/consciousness: oriented to person, oriented to place and oriented to time HEENT: Head: Yes normal to inspection Neck: Neck: Yes normal visual inspection Carotids: no bruits Chest: Chest palpation & inspection: normal inspection of the chest Resp: Effort & Inspection: normal respiratory effort and able to speak in complete sentences Auscultation: clear to auscultation bilaterally, no crackles, no rales, no rhonchi and no wheezes Cardio: Rate: regular rate Rhythm: regular rhythm Heart sounds: S1 normal heart sound present and S2 normal heart sound present Bruits: no carotid bruits Peripheral pulses: Peripheral pulses 2+ throughout GI: Inspection: Yes normal to inspection Skin: Other: Left stump well-healed Right stump dressing clean dry intact Wounds: no wounds Hair: normal Neuro: General: oriented to person, oriented to place and oriented to time Cranial nerves: Yes CN's II-XII intact bilaterally and Yes Normal hearing present Cognition (Neuro): normal cognition Motor exam (neuro): 5/5 motor strength present throughout Extrem: Other: venous exam: No significant superficial varicosities or spider telangiectasias, minimal edema General: No clubbing, No cyanosis and No edema Psych: Appearance: grossly normal Mental Status: mental status grossly normal Speech and movement: Normal speech and movement present Progress Note: A&P Assessment and plan (1) Peripheral arterial disease: Status: Acute Assessment and Plan: In short patient is doing extremely well status post BKA. He is doing extremely well. Will plan for dressing change. Should that go well will plan for rehab placement early next week. Thank you for allowing us to assist in his care. Time Spent With Patient Time: Total time managing care of this patient today ____ minutes. Procedures Date of Service Date of Service: 10/03/22 Quality Stroke Does the patient have a stroke diagnosis?: No VTE Prior VTE?: No VTE Risk Level:: Medical - moderate - high VTE Device Contraindication: Treatment Not Indicated VTE Drug Contraindication: N/A - Med Ordered
[2022-10-03 11:18] LABS: Glucose, Whole Blood 243 mg/dL (60-115)
--- NOTE | 2022-10-03 12:12 | HO.POSTANES ---
Post Anesthesia Evaluation Post Anesthesia Evaluation Date of Service: 10/03/22 Vital Signs: Vital Signs Temp Pulse Resp BP Pulse Ox O2 Del Method 10/03/22 11:21 98.2 F 75 17 133/63 93 Room Air 10/03/22 07:25 97.8 F 72 18 140/70 H 95 Room Air 10/03/22 02:35 98 F 70 17 120/61 96 Room Air Anesthesia: General Mental Status: Awake Pain Control: Satisfactory Nausea/Vomiting: None Hydration: Adequate Anesthesia-Related Issues: No Anes. Related Issues
--- NOTE | 2022-10-03 12:56 | MHC.CM.PN ---
Preferences for STR we obtained. The referrals were sent to the preferred facilities. [facility]st choice [facility]. [facility]nd choice is [facility]. [facility] was also referred. Clinical information has been sent for review. The PT eval is still pending. Patient will transport via BLS at discharge.
--- NOTE | 2022-10-03 14:45 | P.PNIM_ITS ---
Subjective Subjective Date of Service: 10/03/22 Interval History: Doing extremely well postop. ?feels great? Review of Systems denies chest pain Denies shortness of breath Denies nausea vomiting diarrhea Denies fever chills Physical Exam Vital Signs: Vital Signs: Last Vital Signs Temp 98.2 F 10/03/22 11:21 Pulse 75 10/03/22 13:31 Resp 17 10/03/22 11:21 BP 133/63 10/03/22 13:31 Pulse Ox 93 10/03/22 13:31 O2 Del Method Room Air 10/03/22 11:21 O2 Flow Rate 2 10/02/22 18:16 BMI result Body Mass Index 29.0 Const: Other: Awake alert; comfortable Resp: Other: Clear to auscultation bilaterally no rales rhonchi or wheezes Cardio: Other: no S4; positive S1-S2; no S3 murmurs rubs or gallops GI: Other: soft nontender nondistended normoactive bowel sounds Extrem: Other: Right stump site clean dry and intact Objective Data Active Medications Acetaminophen (Acetaminophen 325 Mg Tablet) 650 mg PO Q6H PRN PRN Reason: Pain, Mild (Pain Scale 1-3) Last Admin: 10/01/22 11:40 Dose: 650 mg Documented By: THAIS Hydrocodone Bitart/Acetaminophen (Hydrocodone Bit/Acetam 10/325 Tablet) 1 tab PO Q4H PRN PRN Reason: Pain, Moderate(Pain Scale 4-6) Last Admin: 10/03/22 07:06 Dose: 1 tab Documented By: RADHA Atorvastatin Calcium (Atorvastatin Calcium 10 Mg Tablet) 10 mg PO DAILY [facility] Last Admin: 10/03/22 07:55 Dose: 10 mg Documented By: RADHA Dextrose (Dextrose 50 % 25 Gm/50 Ml Syringe) 25 gm IVPUSH Q15M PRN; Protocol PRN Reason: per Hypoglycemia Standing Ord. Docusate Sodium (Docusate Sodium 100 Mg Capsule) 100 mg PO DAILY PRN PRN Reason: Constipation Furosemide (Furosemide 20 Mg Tablet) 20 mg PO DAILY [facility]; Protocol Last Admin: 10/03/22 07:55 Dose: 20 mg Documented By: RADHA Glucose (Glucose Gel 15 Gm Gel..Gram.) 15 gm PO Q15M PRN; Protocol PRN Reason: per Hypoglycemia Standing Ord. Cefepime HCl 2 gm/ Sodium (Chloride) 50 mls @ 100 mls/hr IV Q12H [facility] Last Infusion: 10/03/22 12:01 Dose: 0 mls/hr Documented By: RADHA Vancomycin HCl 1,000 mg/ (Sodium Chloride) 270 mls @ 270 mls/hr IV Q24H [facility] Last Infusion: 10/03/22 11:04 Dose: 0 mls/hr Documented By: RADHA Insulin Glargine (Insulin Glargine,Hum.Rec.Anlog 100 Unit/Ml 10 Ml Vial) 4 unit SUBCUT BEDTIME [facility] Last Admin: 10/02/22 21:12 Dose: 4 unit Documented By: GIAN Insulin Human Lispro (Insulin Lispro 100 Unit/Ml 3 Ml Vial) 0 unit SUBCUT QIDACHS [facility]; Protocol Last Admin: 10/03/22 11:22 Dose: 6 unit Documented By: RADHA Lisinopril (Lisinopril 5 Mg Tablet) 5 mg PO DAILY [facility]; Protocol Last Admin: 10/03/22 07:55 Dose: 5 mg Documented By: RADHA Morphine Sulfate (Morphine Sulfate 4 Mg/Ml Cartridge) 4 mg IVPUSH Q3H PRN; Protocol PRN Reason: Pain, Severe (Pain Scale 7-10) Last Admin: 10/03/22 13:54 Dose: 4 mg Documented By: RADHA Ondansetron HCl (Ondansetron Hcl 4 Mg/2 Ml Vial) 4 mg IVPUSH Q8H PRN PRN Reason: Nausea and Vomiting Pharmacy Consult (Consult Rx Perform Med Rec) 1 each MISCELLANE ONCE PRN PRN Reason: Consult order Pharmacy Consult (Consult Rx Vancomycin Dosing) 1 each MISCELLANE DAILY PRN PRN Reason: Consult order Tamsulosin HCl (Tamsulosin Hcl 0.4 Mg Capsule) 0.4 mg PO DAILY [facility] Last Admin: 10/03/22 07:54 Dose: 0.4 mg Documented By: RADHA Labs 10/02/22 05:04 10/03/22 06:50 Labs: Laboratory Results - last 24 hr 10/02/22 10/02/22 10/02/22 14:55 18:21 20:42 Estim Creat Clear Calc Estimated GFR POC Glucose 134 H 162 H 297 H Random Vancomycin 10/03/22 10/03/22 10/03/22 06:50 07:18 08:36 Estim Creat Clear Calc 54.8 Estimated GFR > 60 POC Glucose 186 H Random Vancomycin 18.2 10/03/22 11:13 Estim Creat Clear Calc Estimated GFR POC Glucose 243 H Random Vancomycin Assessment and Plan (1) Osteomyelitis of right foot: Status: Acute (2) Peripheral arterial disease: Status: Acute (3) Type 2 diabetes mellitus: Status: Acute Plan 87-year-old male with history of insulin-dependent type 2 diabetes, chronic low back pain s/p lumbar fusion, peripheral arterial disease s/p left BKA, hyperlipidemia, BPH, and 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 BKA plan for a.m. Time Spent With Patient Time: Total time managing care of this patient today ____ minutes. Quality Stroke Does the patient have a stroke diagnosis?: No VTE Prior VTE?: No VTE Risk Level:: Medical - moderate - high VTE Device Contraindication: Treatment Not Indicated VTE Drug Contraindication: N/A - Med Ordered
[2022-10-03 16:28] LABS: Glucose, Whole Blood 296 mg/dL (60-115)
[2022-10-03 20:49] LABS: Glucose, Whole Blood 300 mg/dL (60-115)
[2022-10-03] MEDS: Insulin Glargine,Hum.rec.anlog 100 UNIT/ML 10 ML VIAL SUBCUT (21:05)
[2022-10-04] VITALS (9 sets, daily range): BP systolic 129–154; BP diastolic 62–70; PULSE 70–85; RESP 16–19; TEMP 36.3–37.3; O2SAT 93–98
[2022-10-04] MEDS: Morphine Sulfate 4 MG/ML CARTRIDGE IVPUSH ×3 (00:21→18:23)
[2022-10-04] MEDS: cefEPime HCl 2 GM in 0.9 % Sodium Chloride 50 ML IV ×3 (00:25→23:45)
[2022-10-04 07:23] LABS: Glucose, Whole Blood 178 mg/dL (60-115)
[2022-10-04] MEDS: Atorvastatin Calcium 10 MG TABLET PO (07:46)
[2022-10-04] MEDS: Tamsulosin HCL 0.4 MG CAPSULE PO (07:46)
[2022-10-04] MEDS: Insulin Lispro 100 UNIT/ML 3 ML VIAL SUBCUT ×4 (07:46→21:21)
[2022-10-04] MEDS: lisinopriL 5 MG TABLET PO (07:46)
[2022-10-04] MEDS: Furosemide 20 MG TABLET PO (07:46)
[2022-10-04] MEDS: Docusate Sodium 100 MG CAPSULE PO (07:46)
[2022-10-04 08:39] LABS: Creatinine Clr Calc Pharmacy 56.8; Estimated Glomerular Filt Rate > 60
[2022-10-04 08:49] LABS: Vancomycin Trough 18.2 mcg/mL (10.0-20.0)
[2022-10-04] MEDS: vancomycin HCL 1,000 MG in 0.9 % Sodium Chloride 250 ML 270 MG IV (09:38)
[2022-10-04 11:15] LABS: Glucose, Whole Blood 286 mg/dL (60-115)
--- NOTE | 2022-10-04 11:46 | HO.PM.IMPN ---
Subjective Subjective Date of Service: 10/04/22 Interval History: Continues to do well. Pain control adequate Review of Systems denies chest pain Denies shortness of breath Denies nausea vomiting diarrhea Denies fever chills Physical Exam Vital Signs: Vital Signs: Last Vital Signs Temp 97.4 F 10/04/22 07:26 Pulse 75 10/04/22 07:26 Resp 19 10/04/22 09:25 BP 152/65 H 10/04/22 07:26 Pulse Ox 94 10/04/22 07:26 O2 Del Method Room Air 10/04/22 07:26 O2 Flow Rate 2 10/02/22 18:16 BMI result Body Mass Index 29.0 Const: Other: Awake alert; comfortable Resp: Other: Clear to auscultation bilaterally no rales rhonchi or wheezes Cardio: Other: no S4; positive S1-S2; no S3 murmurs rubs or gallops GI: Other: soft nontender nondistended normoactive bowel sounds Extrem: Other: Right stump site clean dry and intact Objective Data Active Medications Acetaminophen (Acetaminophen 325 Mg Tablet) 650 mg PO Q6H PRN PRN Reason: Pain, Mild (Pain Scale 1-3) Last Admin: 10/01/22 11:40 Dose: 650 mg Documented By: THAIS Hydrocodone Bitart/Acetaminophen (Hydrocodone Bit/Acetam 10/325 Tablet) 1 tab PO Q4H PRN PRN Reason: Pain, Moderate(Pain Scale 4-6) Last Admin: 10/04/22 11:25 Dose: 1 tab Documented By: COTZOYA Atorvastatin Calcium (Atorvastatin Calcium 10 Mg Tablet) 10 mg PO DAILY [facility] Last Admin: 10/04/22 07:46 Dose: 10 mg Documented By: COTEMA Dextrose (Dextrose 50 % 25 Gm/50 Ml Syringe) 25 gm IVPUSH Q15M PRN; Protocol PRN Reason: per Hypoglycemia Standing Ord. Docusate Sodium (Docusate Sodium 100 Mg Capsule) 100 mg PO DAILY PRN PRN Reason: Constipation Last Admin: 10/04/22 07:46 Dose: 100 mg Documented By: COTEMA Furosemide (Furosemide 20 Mg Tablet) 20 mg PO DAILY [facility]; Protocol Last Admin: 10/04/22 07:46 Dose: 20 mg Documented By: COTEMA Glucose (Glucose Gel 15 Gm Gel..Gram.) 15 gm PO Q15M PRN; Protocol PRN Reason: per Hypoglycemia Standing Ord. Cefepime HCl 2 gm/ Sodium (Chloride) 50 mls @ 100 mls/hr IV Q12H [facility] Last Admin: 10/04/22 11:24 Dose: 100 mls/hr Documented By: COTEMA Vancomycin HCl 1,000 mg/ (Sodium Chloride) 270 mls @ 270 mls/hr IV Q24H [facility] Last Infusion: 10/04/22 11:06 Dose: 0 mls/hr Documented By: ADAM Insulin Glargine (Insulin Glargine,Hum.Rec.Anlog 100 Unit/Ml 10 Ml Vial) 4 unit SUBCUT BEDTIME [facility] Last Admin: 10/03/22 21:05 Dose: 4 unit Documented By: TUMASY Insulin Human Lispro (Insulin Lispro 100 Unit/Ml 3 Ml Vial) 0 unit SUBCUT QIDACHS [facility]; Protocol Last Admin: 10/04/22 11:24 Dose: 8 unit Documented By: ADAM Lisinopril (Lisinopril 5 Mg Tablet) 5 mg PO DAILY [facility]; Protocol Last Admin: 10/04/22 07:46 Dose: 5 mg Documented By: ADAM Morphine Sulfate (Morphine Sulfate 4 Mg/Ml Cartridge) 4 mg IVPUSH Q3H PRN; Protocol PRN Reason: Pain, Severe (Pain Scale 7-10) Last Admin: 10/04/22 09:25 Dose: 4 mg Documented By: ADAM Ondansetron HCl (Ondansetron Hcl 4 Mg/2 Ml Vial) 4 mg IVPUSH Q8H PRN PRN Reason: Nausea and Vomiting Pharmacy Consult (Consult Rx Perform Med Rec) 1 each MISCELLANE ONCE PRN PRN Reason: Consult order Pharmacy Consult (Consult Rx Vancomycin Dosing) 1 each MISCELLANE DAILY PRN PRN Reason: Consult order Tamsulosin HCl (Tamsulosin Hcl 0.4 Mg Capsule) 0.4 mg PO DAILY [facility] Last Admin: 10/04/22 07:46 Dose: 0.4 mg Documented By: ADAM Labs 10/02/22 05:04 10/04/22 08:03 Labs: Laboratory Results - last 24 hr 10/03/22 10/03/22 10/04/22 16:20 20:36 07:18 Estim Creat Clear Calc Estimated GFR POC Glucose 296 H 300 H 178 H Vancomycin Trough 10/04/22 10/04/22 10/04/22 08:03 08:03 11:11 Estim Creat Clear Calc 56.8 Estimated GFR > 60 POC Glucose 286 H Vancomycin Trough 18.2 Assessment and Plan (1) Osteomyelitis of right foot: Status: Acute (2) Type 2 diabetes mellitus: Status: Acute (3) Peripheral arterial disease: Status: Acute Plan 87-year-old male with history of insulin-dependent type 2 diabetes, chronic low back pain s/p lumbar fusion, peripheral arterial disease s/p left BKA, hyperlipidemia, BPH, and 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 recommends acute rehab -further plans as per vascular surgery 2.DM II - add back metformin to regimen - continue basilar insulin as ordered; lispro correctional scale - adjust as indicated 3.Peripheral artery disease -continue statin -will continue to hold Plavix; restart as per vascular surgery 4.Normocytic anemia - likely related to chronic disease - follow CBCs; transfuse as indicated Full code heparin Requires ongoing inpatient hospitalization for management of osteomyelitis of the calcaneus failing IV antibiotics alone. BKA plan for a.m. Time Spent With Patient Time: Total time managing care of this patient today ____ minutes. Quality Stroke Does the patient have a stroke diagnosis?: No VTE Prior VTE?: No VTE Risk Level:: Medical - moderate - high VTE Device Contraindication: Treatment Not Indicated VTE Drug Contraindication: N/A - Med Ordered
[2022-10-04 16:07] LABS: Glucose, Whole Blood 228 mg/dL (60-115)
[2022-10-04 20:36] LABS: Glucose, Whole Blood 260 mg/dL (60-115)
[2022-10-04] MEDS: Insulin Glargine,Hum.rec.anlog 100 UNIT/ML 10 ML VIAL SUBCUT (21:24)
[2022-10-05] MEDS: Morphine Sulfate 4 MG/ML CARTRIDGE IVPUSH ×4 (00:52→18:01)
[2022-10-05 04:00] VITALS: BP 149/74; PULSE 70; RESP 18; TEMP 36.6; O2SAT 98
[2022-10-05 07:27] VITALS: BP 164/70; PULSE 78; RESP 20; TEMP 36.4; O2SAT 98
[2022-10-05 07:34] LABS: Glucose, Whole Blood 157 mg/dL (60-115)
[2022-10-05] MEDS: Insulin Lispro 100 UNIT/ML 3 ML VIAL SUBCUT ×4 (07:49→20:58)
[2022-10-05] MEDS: lisinopriL 5 MG TABLET PO (07:49)
[2022-10-05] MEDS: Docusate Sodium 100 MG CAPSULE PO (07:49)
[2022-10-05] MEDS: Atorvastatin Calcium 10 MG TABLET PO (07:50)
[2022-10-05] MEDS: Tamsulosin HCL 0.4 MG CAPSULE PO (07:50)
[2022-10-05] MEDS: Furosemide 20 MG TABLET PO (07:50)
[2022-10-05 08:19] LABS: Creatinine Clr Calc Pharmacy 57.9; Estimated Glomerular Filt Rate > 60
[2022-10-05 08:28] LABS: Vancomycin Trough 19.1 mcg/mL (10.0-20.0)
--- NOTE | 2022-10-05 08:43 | HE.PHANOTE ---
Vancomycin dosing addendum Vancomycin trough 19.1. Continue with current regimen as patient has had troughs between 15 and 20 for several days now on this dose. Slight increase in SCR on 10/03. Continue to monitor level and Scr.
[2022-10-05 09:54] VITALS: RESP 19
[2022-10-05] MEDS: vancomycin HCL 1,000 MG in 0.9 % Sodium Chloride 250 ML 270 MG IV (10:03)
[2022-10-05 11:24] LABS: Glucose, Whole Blood 269 mg/dL (60-115)
[2022-10-05] MEDS: cefEPime HCl 2 GM in 0.9 % Sodium Chloride 50 ML IV ×2 (11:56→23:44)
--- NOTE | 2022-10-05 14:03 | P.PNIM_ITS ---
Subjective Subjective Date of Service: 10/05/22 Interval History: Continues to do well postoperatively. No acute issues Review of Systems denies chest pain Denies shortness of breath Denies nausea vomiting diarrhea Denies fever chills Physical Exam Vital Signs: Vital Signs: Last Vital Signs Temp 97.5 F 10/05/22 07:27 Pulse 78 10/05/22 07:27 Resp 19 10/05/22 09:54 BP 164/70 H 10/05/22 07:27 Pulse Ox 98 10/05/22 07:27 O2 Del Method Room Air 10/05/22 07:27 O2 Flow Rate 2 10/02/22 18:16 BMI result Body Mass Index 29.0 Const: Other: Awake alert; comfortable Resp: Other: Clear to auscultation bilaterally no rales rhonchi or wheezes Cardio: Other: no S4; positive S1-S2; no S3 murmurs rubs or gallops GI: Other: soft nontender nondistended normoactive bowel sounds Extrem: Other: Right stump site clean dry and intact Objective Data Active Medications Acetaminophen (Acetaminophen 325 Mg Tablet) 650 mg PO Q6H PRN PRN Reason: Pain, Mild (Pain Scale 1-3) Last Admin: 10/01/22 11:40 Dose: 650 mg Documented By: THAIS Hydrocodone Bitart/Acetaminophen (Hydrocodone Bit/Acetam 10/325 Tablet) 1 tab PO Q4H PRN PRN Reason: Pain, Moderate(Pain Scale 4-6) Last Admin: 10/05/22 11:55 Dose: 1 tab Documented By: COTEMA Atorvastatin Calcium (Atorvastatin Calcium 10 Mg Tablet) 10 mg PO DAILY [facility] Last Admin: 10/05/22 07:50 Dose: 10 mg Documented By: COTEMA Dextrose (Dextrose 50 % 25 Gm/50 Ml Syringe) 25 gm IVPUSH Q15M PRN; Protocol PRN Reason: per Hypoglycemia Standing Ord. Docusate Sodium (Docusate Sodium 100 Mg Capsule) 100 mg PO DAILY PRN PRN Reason: Constipation Last Admin: 10/05/22 07:49 Dose: 100 mg Documented By: COTEMA Furosemide (Furosemide 20 Mg Tablet) 20 mg PO DAILY [facility]; Protocol Last Admin: 10/05/22 07:50 Dose: 20 mg Documented By: COTEMA Glucose (Glucose Gel 15 Gm Gel..Gram.) 15 gm PO Q15M PRN; Protocol PRN Reason: per Hypoglycemia Standing Ord. Cefepime HCl 2 gm/ Sodium (Chloride) 50 mls @ 100 mls/hr IV Q12H [facility] Last Infusion: 10/05/22 12:31 Dose: 0 mls/hr Documented By: ADAM Vancomycin HCl 1,000 mg/ (Sodium Chloride) 270 mls @ 270 mls/hr IV Q24H [facility] Last Infusion: 10/05/22 11:12 Dose: 0 mls/hr Documented By: ADAM Insulin Glargine (Insulin Glargine,Hum.Rec.Anlog 100 Unit/Ml 10 Ml Vial) 4 unit SUBCUT BEDTIME [facility] Last Admin: 10/04/22 21:24 Dose: 4 unit Documented By: CATHERINE Insulin Human Lispro (Insulin Lispro 100 Unit/Ml 3 Ml Vial) 0 unit SUBCUT QIDACHS [facility]; Protocol Last Admin: 10/05/22 11:56 Dose: 8 unit Documented By: ADAM Lisinopril (Lisinopril 5 Mg Tablet) 5 mg PO DAILY [facility]; Protocol Last Admin: 10/05/22 07:49 Dose: 5 mg Documented By: ADAM Morphine Sulfate (Morphine Sulfate 4 Mg/Ml Cartridge) 4 mg IVPUSH Q3H PRN; Protocol PRN Reason: Pain, Severe (Pain Scale 7-10) Last Admin: 10/05/22 09:54 Dose: 4 mg Documented By: ADAM Ondansetron HCl (Ondansetron Hcl 4 Mg/2 Ml Vial) 4 mg IVPUSH Q8H PRN PRN Reason: Nausea and Vomiting Pharmacy Consult (Consult Rx Perform Med Rec) 1 each MISCELLANE ONCE PRN PRN Reason: Consult order Pharmacy Consult (Consult Rx Vancomycin Dosing) 1 each MISCELLANE DAILY PRN PRN Reason: Consult order Tamsulosin HCl (Tamsulosin Hcl 0.4 Mg Capsule) 0.4 mg PO DAILY [facility] Last Admin: 10/05/22 07:50 Dose: 0.4 mg Documented By: ADAM Labs 10/02/22 05:04 10/05/22 07:54 Labs: Laboratory Results - last 24 hr 10/04/22 10/04/22 10/05/22 16:02 20:31 07:31 Estim Creat Clear Calc Estimated GFR POC Glucose 228 H 260 H 157 H Vancomycin Trough 10/05/22 10/05/22 10/05/22 07:54 07:54 11:18 Estim Creat Clear Calc 57.9 Estimated GFR > 60 POC Glucose 269 H Vancomycin Trough 19.1 Assessment and Plan (1) Osteomyelitis of right foot: Status: Acute (2) Type 2 diabetes mellitus: Status: Acute (3) Peripheral arterial disease: Status: Acute Plan 87-year-old male with history of insulin-dependent type 2 diabetes, chronic low back pain s/p lumbar fusion, peripheral arterial disease s/p left BKA, hyperlipidemia, BPH, and 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 recommends acute rehab -further plans as per vascular surgery 2.DM II - add back metformin to regimen - continue basilar insulin as ordered; lispro correctional scale - adjust as indicated 3.Peripheral artery disease -continue statin -restart Plavix in a.m. 4.Normocytic anemia - likely related to chronic disease - follow CBCs; transfuse as indicated Full code heparin Requires ongoing inpatient hospitalization for management of osteomyelitis of the calcaneus failing IV antibiotics alone. BKA plan for a.m. Time Spent With Patient Time: Total time managing care of this patient today ____ minutes. Quality Stroke Does the patient have a stroke diagnosis?: No VTE Prior VTE?: No VTE Risk Level:: Medical - moderate - high VTE Device Contraindication: Treatment Not Indicated VTE Drug Contraindication: N/A - Med Ordered
[2022-10-05 14:29] VITALS: RESP 18
[2022-10-05 15:26] VITALS: BP 138/56; PULSE 74; RESP 20; TEMP 36.3; O2SAT 95
[2022-10-05 16:12] LABS: Glucose, Whole Blood 211 mg/dL (60-115)
[2022-10-05 20:40] LABS: Glucose, Whole Blood 232 mg/dL (60-115)
[2022-10-05] MEDS: Insulin Glargine,Hum.rec.anlog 100 UNIT/ML 10 ML VIAL SUBCUT (20:58)
[2022-10-05 23:31] VITALS: BP 127/55; PULSE 77; RESP 17; TEMP 36.5; O2SAT 96
[2022-10-06 07:26] VITALS: BP 157/71; PULSE 75; RESP 20; TEMP 36.8; O2SAT 95
[2022-10-06 07:31] LABS: Glucose, Whole Blood 173 mg/dL (60-115)
[2022-10-06] MEDS: Insulin Lispro 100 UNIT/ML 3 ML VIAL SUBCUT ×2 (07:57→11:49)
[2022-10-06] MEDS: Furosemide 20 MG TABLET PO (07:58)
[2022-10-06] MEDS: lisinopriL 5 MG TABLET PO (07:58)
[2022-10-06] MEDS: Atorvastatin Calcium 10 MG TABLET PO (07:58)
[2022-10-06] MEDS: Tamsulosin HCL 0.4 MG CAPSULE PO (07:58)
[2022-10-06] MEDS: Heparin Sodium,Porcine 5,000 UNIT/ML VIAL 5000 UNIT SUBCUT (08:08)
[2022-10-06 08:46] LABS: MANUAL DIFF FLAG NO
[2022-10-06 08:48] LABS: Basophils Absolute Auto 0.1 X10*3/uL (0.0-0.2); Basophils Percent Auto 0.7 % (0-2); Eosinophils Absolute Auto 0.6 X10*3/uL (0.0-0.4); Hematocrit 25.1 % (42.0-52.0); Hemoglobin 7.5 g/dl (14.0-18.0); Imm Gran Abs Auto 0.09 X10*3/uL (0.00-0.03); Imm Gran Pct Auto 0.8 % (0.0-0.4); Lymphocytes Absolute Auto 1.3 X10*3/uL (1.2-4.9); Lymphocytes Percent Auto 11.1 % (20-40); Mean Corpuscular HGB Conc 29.9 g/dl (31.0-36.0); Mean Corpuscular Volume 87.2 fL (80.0-98.0); Mean Platelet Volume 8.9 fL (9.4-12.4); Monocytes Absolute Auto 0.9 X10*3/uL (0.1-1.2); Monocytes Percent Auto 7.7 % (2-11); Neutrophils Absolute Auto 8.9 x10*3/uL (2.0-8.3); Neutrophils Percent Auto 74.7 % (45-73); Platelet Count 443 X10*3/uL (160-400); Red Blood Count 2.88 X10*6/uL (4.60-5.80); Red Cell Distribution Width 15.3 % (11.0-16.0); White Blood Count 11.9 X10*3/uL (4.8-10.8)
[2022-10-06 08:56] VITALS: RESP 19
[2022-10-06] MEDS: Morphine Sulfate 4 MG/ML CARTRIDGE IVPUSH (08:56)
[2022-10-06] MEDS: Docusate Sodium 100 MG CAPSULE PO (08:56)
[2022-10-06 09:03] LABS: Vancomycin Trough 20.2 mcg/mL (10.0-20.0)
[2022-10-06 09:05] LABS: Alanine Aminotransferase 64 U/L (0-40); Alkaline Phosphatase 94 U/L (39-117); Anion Gap 17 (12-20); Aspartate Amino Transferase 81 U/L (5-37); Bilirubin Total 0.3 mg/dL (0.0-1.0); Blood Urea Nitrogen 31 mg/dL (9-16); Carbon Dioxide 23 mmol/L (22-29); Chloride 104 mmol/L (96-108); Estimated Glomerular Filt Rate 46; Glucose Fasting 218 mg/dL (60-99); Potassium 4.9 mmol/L (3.3-5.1); Sodium 139 mmol/L (135-145); Total Protein 7.2 g/dL (6.5-8.0)
--- NOTE | 2022-10-06 09:13 | HE.PHANOTE ---
RE: vanco Trough on 10/06 came back high at 20.2 mg/L; held dose. Put in another level to be drawn at 2000; also put in order for 750mg Q24H to start at 2200 depending on level. Predicted AUC 514 mg/L; trough of 19.4 mg/L. Will adjust accordingly
--- NOTE | 2022-10-06 09:24 | PM.DS ---
DS: Providers Provider Date of Service: 10/06/22 Date of admission: 09/25/22 20:07 Primary care physician: Jose Knott DO Consults: 09/25/22 20:12 Consult to Vascular Surgery Routine Consulting Provider: [facility] Vascular Services Reason for consultation: infected nonhealing foot ulcer, PAD DS: Diagnosis Discharge Diagnosis (1) Osteomyelitis of right foot: Status: Resolved (2) Type 2 diabetes mellitus: Status: Inactive (3) Peripheral arterial disease: Status: Inactive DS: Summary Hospital Course Hospital Course: Chief Complaint: Generalized weakness, nonhealing right foot ulcer 87-year-old male with history of insulin-dependent type 2 diabetes, chronic low back pain s/p lumbar fusion, peripheral arterial disease s/p left BKA, hyperlipidemia, BPH, and 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 He states he is here at his 's request. He has been following with [facility] wound clinic for the heel. Per EMS patient was febrile to 102.5. On arrival, febrile to 100.5, vitals otherwise stable. There is no leukocytosis, normocytic anemia with H/H 8.4/26.7%.? Renal function normal, electrolyte levels normal.? Lactic acid 1.1.? CRP 11.87, ESR pending.? Urinalysis significant for 2+ protein, otherwise unremarkable.? Chest x-ray negative for acute cardiopulmonary abnormality.? X-ray of the right foot shows large ulcer adjacent to the calcaneus with associated cortical irregularity and bony lucency along the inferior per steer surface of the calcaneus concerning for osteomyelitis. Hospital course: Essentially patient with history of diabetes, PVD and s/p Left BKA and presented with non-healing ulcer of the right heel that was not deemed salvageable with antibiotics and therefore underwent a BKA by Dr. Gonzalez on 10/02/22 without complication at this time, in the interim before surgery and after surgery he wa give broad spectrum antibiotics, cultures have been negative and at this time point no indication for further antibiotics. Dressing changes by Dr. Gonzalez 2.DM II--continue Metformin and SSI 3.Peripheral artery disease -continue statin -continue Plavix t 4.Normocytic anemia - likely related to chronic disease and some loss after surgery, transfuse for Hgb < 7 - follow CBCs; transfuse as indicated Time Spent with Patient Time attestation: Total time managing care of this patient today ____ minutes. Discharge coordination time: Greater than 30 minutes Quality: Safe Use of Opioids Does Pt have an Active Cancer Diagnosis on the Problem List?: No Quality: Stroke Does the patient have a stroke diagnosis?: No Physical Exam Vital Signs: Vital Signs: Last Vital Signs Temp 98.3 F 10/06/22 07:26 Pulse 75 10/06/22 07:26 Resp 19 10/06/22 08:56 BP 157/71 H 10/06/22 07:26 Pulse Ox 95 10/06/22 07:26 O2 Del Method Room Air 10/06/22 07:26 O2 Flow Rate 2 10/02/22 18:16 BMI result Body Mass Index 29.0 DS: Data Data Completed and Pending Pending studies at discharge: Pending at discharge 10/02/22 16:25 Surgical [PTH] Routine Labs on day of discharge: Laboratory Results - last 24 hr 10/05/22 10/05/22 10/05/22 11:18 16:02 20:35 WBC RBC Hgb Hct MCV MCH MCHC RDW Plt Count MPV Immature Gran % (Auto) Neut % (Auto) Lymph % (Auto) [place] % (Auto) Eos % (Auto) Baso % (Auto) Lymph # (Auto) [place] # (Auto) Eos # (Auto) Baso # (Auto) Abs Immat Gran (auto) Absolute Neuts (auto) Absolute Nucleated RBC Nucleated RBC % (auto) Sodium Potassium Chloride Carbon Dioxide Anion Gap BUN Creatinine Estim Creat Clear Calc Estimated GFR POC Glucose 269 H 211 H 232 H Fasting Glucose Calcium Total Bilirubin AST ALT Alkaline Phosphatase Total Protein Albumin Vancomycin Trough 10/06/22 10/06/22 10/06/22 07:12 08:38 08:38 WBC RBC Hgb Hct MCV MCH MCHC RDW Plt Count MPV Immature Gran % (Auto) Neut % (Auto) Lymph % (Auto) [place] % (Auto) Eos % (Auto) Baso % (Auto) Lymph # (Auto) [place] # (Auto) Eos # (Auto) Baso # (Auto) Abs Immat Gran (auto) Absolute Neuts (auto) Absolute Nucleated RBC Nucleated RBC % (auto) Sodium 139 Potassium 4.9 D Chloride 104 Carbon Dioxide 23 Anion Gap 17 BUN 31 H Creatinine 1.46 H Estim Creat Clear Calc 42.0 Estimated GFR 46 POC Glucose 173 H Fasting Glucose 218 H Calcium 9.0 Total Bilirubin 0.3 AST 81 H ALT 64 H Alkaline Phosphatase 94 Total Protein 7.2 Albumin 3.0 L Vancomycin Trough 20.2 H 10/06/22 08:38 WBC 11.9 H RBC 2.88 L Hgb 7.5 L Hct 25.1 L MCV 87.2 MCH 26.0 L MCHC 29.9 L RDW 15.3 Plt Count 443 H MPV 8.9 L Immature Gran % (Auto) 0.8 H Neut % (Auto) 74.7 H Lymph % (Auto) 11.1 L [place] % (Auto) 7.7 Eos % (Auto) 5.0 H Baso % (Auto) 0.7 Lymph # (Auto) 1.3 [place] # (Auto) 0.9 Eos # (Auto) 0.6 H Baso # (Auto) 0.1 Abs Immat Gran (auto) 0.09 H Absolute Neuts (auto) 8.9 H Absolute Nucleated RBC 0.000 Nucleated RBC % (auto) 0.0 Sodium Potassium Chloride Carbon Dioxide Anion Gap BUN Creatinine Estim Creat Clear Calc Estimated GFR POC Glucose Fasting Glucose Calcium Total Bilirubin AST ALT Alkaline Phosphatase Total Protein Albumin Vancomycin Trough Discharge Plan Discharge Anticipated Discharge Date/Time: 10/06/22 14:29 Patient Disposition: Xfer [facility] Discharge Diagnosis: Osteomylitis of the right foot s/p BKA Referrals: [facility] [place] [Outside] - 1 Week Jose Knott DO [Primary Care Provider] - 1 Week Discharge Medications: New docusate sodium 100 mg Capsule 100 mg PO DAILY PRN (Reason: Constipation) Qty: 30 0RF oxycodone 5 mg tablet 5 mg PO Q6H PRN (Reason: pain (scale score 7-10)) Qty: 20 0RF Rx Instructions: Partial Fill upon patient request. Continued atorvastatin 10 mg tablet 10 mg PO DAILY clopidogrel 75 mg tablet 75 mg PO DAILY hydrocodone-acetaminophen 10-325 mg tablet 1 tab PO QID PRN (Reason: pain) tamsulosin 0.4 mg capsule 0.4 mg PO DAILY metformin 1,000 mg tablet 1,000 mg PO BID furosemide 20 mg tablet 20 mg PO DAILY Santyl 250 unit/gram ointment 1 appl topical DAILY Rx Instructions: USING WITH WOUND CARE CLINIC FOR NON HEALING LEFT HEEL insulin aspart U-100 [Novolog FlexPen U-100 Insulin] 100 unit/mL (3 mL) insulin pen See Protocol subcut TIDAC Protocol: Insulin Correction Scale Less than or equal to 110 ---- Give (units): 0 111 to 150 Give (units): 0 151 to 200 Give (units): 2 201 to 250 Give (units): 4 251 to 300 Give (units): 6 301 to 350 Give (units): 8 Greater than 350 Give (units): 10 Call if Blood Glucose > : 350 insulin glargine-yfgn [Semglee(insulin glarg-yfgn)Pen] 100 unit/mL (3 mL) insulin pen 6 unit subcut BEDTIME No Action metronidazole 500 mg tablet 500 mg PO BID Discharge Orders: Discharge Order (Routine); Ordered 10/06/22 Ordered By: David Garcia Diet: Diabetic diet Activity on Discharge: As tolerated Stand Alone Forms: Patient Portal Discharge page Activity Restrictions/Additional Instructions: Wound care upon discharge: xeroform, 4x4 and Kerlix wrap to be changed daily. Please call Dr. Gonzalez at [phone] for 2 week follow up for suture and staple removal Care Plan Goals: Healing of ampuation wound Health Concerns: amputated wound Plan of Treatment: to short term rehab for less than 30 days, wound care as above Assessment: as above Discharge Date/Time: 10/06/22 15:19
--- NOTE | 2022-10-06 09:42 | HO.PM.IMPN ---
Subjective Subjective Date of Service: 10/06/22 Physical Exam Vital Signs: Vital Signs: Last Vital Signs Temp 98.3 F 10/06/22 07:26 Pulse 75 10/06/22 07:26 Resp 19 10/06/22 08:56 BP 157/71 H 10/06/22 07:26 Pulse Ox 95 10/06/22 07:26 O2 Del Method Room Air 10/06/22 07:26 O2 Flow Rate 2 10/02/22 18:16 BMI result Body Mass Index 29.0 Objective Data Active Medications Acetaminophen (Acetaminophen 325 Mg Tablet) 650 mg PO Q6H PRN PRN Reason: Pain, Mild (Pain Scale 1-3) Last Admin: 10/01/22 11:40 Dose: 650 mg Documented By: THAIS Hydrocodone Bitart/Acetaminophen (Hydrocodone Bit/Acetam 10/325 Tablet) 1 tab PO Q4H PRN PRN Reason: Pain, Moderate(Pain Scale 4-6) Last Admin: 10/06/22 07:58 Dose: 1 tab Documented By: COTEMA Atorvastatin Calcium (Atorvastatin Calcium 10 Mg Tablet) 10 mg PO DAILY [facility] Last Admin: 10/06/22 07:58 Dose: 10 mg Documented By: COTEMA Dextrose (Dextrose 50 % 25 Gm/50 Ml Syringe) 25 gm IVPUSH Q15M PRN; Protocol PRN Reason: per Hypoglycemia Standing Ord. Docusate Sodium (Docusate Sodium 100 Mg Capsule) 100 mg PO DAILY PRN PRN Reason: Constipation Last Admin: 10/06/22 08:56 Dose: 100 mg Documented By: COTEMA Furosemide (Furosemide 20 Mg Tablet) 20 mg PO DAILY [facility]; Protocol Last Admin: 10/06/22 07:58 Dose: 20 mg Documented By: MIKHAILEMA Glucose (Glucose Gel 15 Gm Gel..Gram.) 15 gm PO Q15M PRN; Protocol PRN Reason: per Hypoglycemia Standing Ord. Heparin Sodium (Porcine) (Heparin Sodium,Porcine 5,000 Unit/Ml Vial) 5,000 unit SUBCUT Q12H [facility] Last Admin: 10/06/22 08:08 Dose: 5,000 unit Documented By: COTEMA Vancomycin HCl 750 mg/ Sodium (Chloride) 265 mls @ 265 mls/hr IV Q24H [facility] Insulin Glargine (Insulin Glargine,Hum.Rec.Anlog 100 Unit/Ml 10 Ml Vial) 4 unit SUBCUT BEDTIME [facility] Last Admin: 10/05/22 20:58 Dose: 4 unit Documented By: LUCIEN Insulin Human Lispro (Insulin Lispro 100 Unit/Ml 3 Ml Vial) 0 unit SUBCUT QIDACHS [facility]; Protocol Last Admin: 10/06/22 07:57 Dose: 4 unit Documented By: ADAM Lisinopril (Lisinopril 5 Mg Tablet) 5 mg PO DAILY [facility]; Protocol Last Admin: 10/06/22 07:58 Dose: 5 mg Documented By: ADAM Morphine Sulfate (Morphine Sulfate 4 Mg/Ml Cartridge) 4 mg IVPUSH Q3H PRN; Protocol PRN Reason: Pain, Severe (Pain Scale 7-10) Last Admin: 10/06/22 08:56 Dose: 4 mg Documented By: ADAM Ondansetron HCl (Ondansetron Hcl 4 Mg/2 Ml Vial) 4 mg IVPUSH Q8H PRN PRN Reason: Nausea and Vomiting Pharmacy Consult (Consult Rx Perform Med Rec) 1 each MISCELLANE ONCE PRN PRN Reason: Consult order Tamsulosin HCl (Tamsulosin Hcl 0.4 Mg Capsule) 0.4 mg PO DAILY [facility] Last Admin: 10/06/22 07:58 Dose: 0.4 mg Documented By: ADAM Labs 10/06/22 08:38 10/06/22 08:38 Labs: Laboratory Results - last 24 hr 10/05/22 10/05/22 10/05/22 11:18 16:02 20:35 MCV MCH MCHC RDW Plt Count MPV Immature Gran % (Auto) Neut % (Auto) Lymph % (Auto) [place] % (Auto) Eos % (Auto) Baso % (Auto) Lymph # (Auto) [place] # (Auto) Eos # (Auto) Baso # (Auto) Abs Immat Gran (auto) Absolute Neuts (auto) Absolute Nucleated RBC Nucleated RBC % (auto) Anion Gap Estim Creat Clear Calc Estimated GFR POC Glucose 269 H 211 H 232 H Fasting Glucose Calcium Total Bilirubin AST ALT Alkaline Phosphatase Total Protein Albumin Vancomycin Trough 10/06/22 10/06/22 10/06/22 07:12 08:38 08:38 MCV MCH MCHC RDW Plt Count MPV Immature Gran % (Auto) Neut % (Auto) Lymph % (Auto) [place] % (Auto) Eos % (Auto) Baso % (Auto) Lymph # (Auto) [place] # (Auto) Eos # (Auto) Baso # (Auto) Abs Immat Gran (auto) Absolute Neuts (auto) Absolute Nucleated RBC Nucleated RBC % (auto) Anion Gap 17 Estim Creat Clear Calc 42.0 Estimated GFR 46 POC Glucose 173 H Fasting Glucose 218 H Calcium 9.0 Total Bilirubin 0.3 AST 81 H ALT 64 H Alkaline Phosphatase 94 Total Protein 7.2 Albumin 3.0 L Vancomycin Trough 20.2 H 10/06/22 08:38 MCV 87.2 MCH 26.0 L MCHC 29.9 L RDW 15.3 Plt Count 443 H MPV 8.9 L Immature Gran % (Auto) 0.8 H Neut % (Auto) 74.7 H Lymph % (Auto) 11.1 L [place] % (Auto) 7.7 Eos % (Auto) 5.0 H Baso % (Auto) 0.7 Lymph # (Auto) 1.3 [place] # (Auto) 0.9 Eos # (Auto) 0.6 H Baso # (Auto) 0.1 Abs Immat Gran (auto) 0.09 H Absolute Neuts (auto) 8.9 H Absolute Nucleated RBC 0.000 Nucleated RBC % (auto) 0.0 Anion Gap Estim Creat Clear Calc Estimated GFR POC Glucose Fasting Glucose Calcium Total Bilirubin AST ALT Alkaline Phosphatase Total Protein Albumin Vancomycin Trough Assessment and Plan (1) Osteomyelitis of right foot: Status: Acute (2) Type 2 diabetes mellitus: Status: Acute (3) Peripheral arterial disease: Status: Acute Plan Essentially patient with history of diabetes, PVD and s/p Left BKA and presented with non-healing ulcer of the right heel that was not deemed salvageable with antibiotics and therefore underwent a BKA by Dr. Gonzalez on 10/02/22 without complication at this time, in the interim before surgery and after surgery he wa give broad spectrum antibiotics, cultures have been negative and at this time point no indication for further antibiotics. Dressing changes by Dr. Gonzalez 2.DM II--continue Metformin and SSI 3.Peripheral artery disease -continue statin -restart Plavix at dc 4.Normocytic anemia - likely related to chronic disease and some loss after surgery, transfuse for Hgb < 7 - follow CBCs; transfuse as indicated Full code heparin Requires ongoing inpatient hospitalization for management of osteomyelitis of the calcaneus failing IV antibiotics alone. NITINA plan for a.m. Time Spent With Patient Time: Total time managing care of this patient today ____ minutes. Quality Stroke Does the patient have a stroke diagnosis?: No VTE Prior VTE?: No VTE Risk Level:: Medical - moderate - high VTE Device Contraindication: Treatment Not Indicated VTE Drug Contraindication: N/A - Med Ordered
[2022-10-06 11:25] LABS: Glucose, Whole Blood 212 mg/dL (60-115)
--- NOTE | 2022-10-06 12:02 | HO.VASCPN ---
Subjective Subjective Date of Service: 10/06/22 Patient reports: no new complaints and feels better Interval history: Very pleasant 87-year-old gentleman presents for follow-up status post right BKA. He has a prior left BKA. He appears to be doing extremely well. No interval issues. In much better spirits today. Physical Exam Vital Signs: Vital Signs: Last Vital Signs Temp 98.3 F 10/06/22 07:26 Pulse 75 10/06/22 07:26 Resp 19 10/06/22 08:56 BP 157/71 H 10/06/22 07:26 Pulse Ox 95 10/06/22 07:26 O2 Del Method Room Air 10/06/22 07:26 O2 Flow Rate 2 10/02/22 18:16 BMI result Body Mass Index 29.0 Const: General: cooperative, healthy appearing and no acute distress Orientation/consciousness: oriented to person, oriented to place and oriented to time HEENT: Head: Yes normal to inspection Neck: Carotids: no bruits Chest: Chest palpation & inspection: normal inspection of the chest Resp: Effort & Inspection: normal respiratory effort and able to speak in complete sentences Auscultation: clear to auscultation bilaterally Cardio: Rate: regular rate Heart sounds: S1 normal heart sound present and S2 normal heart sound present GI: Inspection: Yes normal to inspection Skin: Other: Dressing changed. Stump healing extremely well. Excellent take of flap. General skin exam: no rashes or lesions noted Wounds: no wounds Neuro: General: oriented to person, oriented to place, oriented to time and CN's II-XI intact bilaterally Extrem: General: Yes normal to inspection, Yes full ROM and Yes no clubbing, cyanosis or edema Psych: Appearance: grossly normal and well kempt Speech and movement: Normal speech and movement present Affect: normal affect Progress Note: A&P Assessment and plan (1) Status post below knee amputation of right lower extremity: Status: Acute Plan In short patient is doing extremely well status post BKA. Stable from my perspective for discharge. Dressing care written. Can see me as an outpatient in approximately 2 weeks time for suture and staple removal. Thank you for allowing me to participate in his care. Time Spent With Patient Time: Total time managing care of this patient today ____ minutes. Procedures Date of Service Date of Service: 10/06/22 Quality Stroke Does the patient have a stroke diagnosis?: No VTE Prior VTE?: No VTE Risk Level:: Medical - moderate - high VTE Device Contraindication: Treatment Not Indicated VTE Drug Contraindication: N/A - Med Ordered
--- NOTE | 2022-10-06 13:39 | MHC.CM.PN ---
IMM 10/06/22 Patient is discharged to [facility] today for ACUTE Rehab. He will transport via S.
== END 2022-10-06 15:19 | disposition skilled nursing facility (03) | DRG 240 ==
LOC: HO.ED 18:53 → HO.EDOVER 20:47 → HO.S3 21:09
PROVIDERS: Hospitalist; Physician Assistant; Physician Assistant Medical; Student in an Organized Health Care Education/Training Program; Surgery Vascular Surgery; Admitting Provider Physician Assistant; Emergency Provider Emergency Medicine; PCP Family Medicine; Visit Provider Internal Medicine
PROC: 0Y6H0Z2 Detachment at Right Lower Leg, Mid, Open Approach (ICD-10-PCS; CPT 27880; principal; 2022-10-02 15:30)
DX: E11.52 Type 2 diabetes mellitus with diabetic peripheral angiopathy with gangrene (principal); L97.419 Non-pressure chronic ulcer of right heel and midfoot with unspecified severity; M86.171 Other acute osteomyelitis, right ankle and foot; E78.5 Hyperlipidemia, unspecified; I70.234 Atherosclerosis of native arteries of right leg with ulceration of heel and midfoot; Z20.822 Contact with and (suspected) exposure to COVID-19; Z98.1 Arthrodesis status; M54.59 Other low back pain; N40.0 Benign prostatic hyperplasia without lower urinary tract symptoms; G89.28 Other chronic postprocedural pain; D63.8 Anemia in other chronic diseases classified elsewhere; E11.69 Type 2 diabetes mellitus with other specified complication; Z89.512 Acquired absence of left leg below knee; Z79.4 Long term (current) use of insulin; Z79.02 Long term (current) use of antithrombotics/antiplatelets; Z79.84 Long term (current) use of oral hypoglycemic drugs; Z79.899 Other long term (current) drug therapy
CPT/HCPCS: 0241U; 36415; 71045; 73650; 80048; 80053; 80202; 81001; 82565; 82947; 83036; 83605; 85025; 85027; 85610; 85652; 86140; 86850; 86900; 86901; 87040; 88307; 88311; 93005; 93926; 93971; 97162; 97166; 99285; J0131; J0692; J1170; J1643; J2270; J2370; J2371; J2795; J3010; J3370; J3371

== ENCOUNTER 2022-09-25 20:07 | Outpatient (BNV) | payer MEDICARE, SELFPAY | END 2022-10-02 07:30 | PROVIDERS: Admitting Provider Physician Assistant; Emergency Provider Emergency Medicine; PCP Family Medicine; Visit Provider Internal Medicine Cardiovascular Disease | DX: I48.91 Unspecified atrial fibrillation (principal) | CPT/HCPCS: 93010 ==

== ENCOUNTER → 2022-09-25 20:07 | Outpatient (BNV) | payer MEDICARE, SELFPAY | PROVIDERS: Admitting Provider Physician Assistant; Emergency Provider Emergency Medicine; PCP Family Medicine; Visit Provider Physician Assistant | DX: M86.171 Other acute osteomyelitis, right ankle and foot (principal); E11.9 Type 2 diabetes mellitus without complications; I73.9 Peripheral vascular disease, unspecified | CPT/HCPCS: 99223; 99232; 99233; 99239 ==

== ENCOUNTER → 2022-09-25 20:07 | Outpatient (BNV) | payer MEDICARE, SELFPAY | PROVIDERS: Admitting Provider Physician Assistant; Emergency Provider Emergency Medicine; PCP Family Medicine; Visit Provider Surgery Vascular Surgery | DX: Z89.511 Acquired absence of right leg below knee (principal) | CPT/HCPCS: 27880; 99024; 99222; 99232 ==

== ENCOUNTER 2022-10-21 10:59 | Outpatient (AMB) | payer MEDICARE, SELFPAY ==
--- NOTE | 2022-10-21 10:59 | A.OFFVIS_ITS ---
Intake Intake Visit Reasons: 2 week follow up BKA Intake Note: 2 week follow up Right BKA 10/02/22, pt in rehab hospital [facility], Per rehab paperwork, dressing changed daily with Santyl. Accompanied by: Self / Same As Patient Allergies No Known Allergies Allergy (Verified 10/21/22 11:09) HPI 2 week follow up BKA HPI Details Very pleasant 87-year-old gentleman presents for follow-up status post right BKA. He reports no interval issues. He is currently in a facility doing fairly well. Now for follow-up. [facility] Medical History BPH (benign prostatic hyperplasia) Chronic low back pain Hyperlipidemia Peripheral arterial disease Type 2 diabetes mellitus Social History Household Members: Spouse Housing: [facility] Do you presently have visiting nurse or other home services: No Alcohol intake: current Alcohol intake frequency: holidays/special occasions only Patient Tobacco Use Status: Never used Tobacco service: No Review of Systems Const All systems reviewed & are unremarkable except as noted in HPI and below Reports no additional complaints ENT Reports Normal hearing present Card Denies chest pain, Denies chest pain at rest, Denies chest pain with activity and Denies pedal edema Resp Denies cough GI Denies abdominal pain Musc Denies abnormal gait, Denies muscle cramps and Denies radiating pain into limb Skin/Breast Denies skin ulcer and Denies wounds Neuro Reports Normal hearing present and Denies abnormal gait Psych Reports no additional complaints Physical Exam Const General: cooperative, healthy appearing and comfortable Orientation/consciousness: oriented to person, oriented to place and oriented to time HEENT Head: Yes normal to inspection Neck Neck: Yes normal visual inspection Carotids: no bruits Chest Chest palpation & inspection: normal inspection of the chest Resp Effort & Inspection: normal respiratory effort and able to speak in complete sentences Auscultation: clear to auscultation bilaterally, no crackles, no rales, no rhonchi and no wheezes Cardio Rate: regular rate Rhythm: regular rhythm Heart sounds: S1 normal heart sound present and S2 normal heart sound present Bruits: no carotid bruits Peripheral pulses: Peripheral pulses 2+ throughout GI Inspection: Yes normal to inspection Skin Other: Right BKA stump mild lateral aspects cellulitis. Sutures and bebeto removed. Left stump well-healed Wounds: amputation site Hair: normal Neuro General: oriented to person, oriented to place and oriented to time Cranial nerves: Yes CN's II-XII intact bilaterally and Yes Normal hearing present Cognition (Neuro): normal cognition Motor exam (neuro): 5/5 motor strength present throughout Extrem Other: venous exam: No significant superficial varicosities or spider telangiectasias, minimal edema General: No clubbing, No cyanosis and No edema Psych Appearance: grossly normal Mental Status: mental status grossly normal Speech and movement: Normal speech and movement present Assessment & Plan Assessment & Plan (1) Status post below knee amputation of right lower extremity: Code(s): Z89.511 - Acquired absence of right leg below knee Plan: In short patient is doing well status post right BKA. We have removed sutures and bebeto. There is mild cellulitis and will start him on Keflex. Continue with dressing including Xeroform Kerlix and an Al wrap. Patient will follow up with us in approximately 2-3 weeks time. Thank you for allowing us to assist in his care Coding Level of Care Code Est Pt Level 4 (14240) Diagnoses Status post below knee amputation of right lower extremity Z89.511
== END 2022-10-21 11:22 | disposition home or self-care (01) ==
PROVIDERS: PCP Family Medicine; Visit Provider Surgery Vascular Surgery
DX: L03.115 Cellulitis of right lower limb (principal); Z89.511 Acquired absence of right leg below knee
CPT/HCPCS: 99024

== ENCOUNTER → 2022-10-21 10:59 | Outpatient (BNVA) | payer OTHER, MEDICARE, SELFPAY | PROVIDERS: PCP Family Medicine; Visit Provider Surgery Vascular Surgery | DX: Z47.81 Encounter for orthopedic aftercare following surgical amputation (principal); Z89.511 Acquired absence of right leg below knee | CPT/HCPCS: 99212 ==

== ENCOUNTER 2022-11-04 10:47 | Outpatient (AMB) | payer MEDICARE, SELFPAY ==
--- NOTE | 2022-11-04 11:09 | MHC.OFFVIS ---
Intake Intake Visit Reasons: 2 week follow up stump check Intake Note: 2 week follow up Right BKA 10/02/22, pt discharged from rehab on 10/23/22, has had a couple falls. Does have a small opening that facility put stitches in. Accompanied by: Spouse Allergies No Known Allergies Allergy (Verified 11/04/22 11:17) HPI 2 week follow up stump check HPI Details Very pleasant 87-year-old gentleman presents for follow-up status post right BKA. He actually had his sutures and bebeto removed at the last visit. He had a small opening on the lateral aspect of that incision. He had been seen and treated at the facility. He was subsequently discharged. Now for routine stump check. [facility] Medical History BPH (benign prostatic hyperplasia) Chronic low back pain Hyperlipidemia Peripheral arterial disease Type 2 diabetes mellitus Social History Household Members: Spouse Housing: [facility] Do you presently have visiting nurse or other home services: No Alcohol intake: current Alcohol intake frequency: holidays/special occasions only Patient Tobacco Use Status: Never used Tobacco service: No Review of Systems Const All systems reviewed & are unremarkable except as noted in HPI and below Reports no additional complaints ENT Reports Normal hearing present Card Denies chest pain, Denies chest pain at rest, Denies chest pain with activity and Denies pedal edema Resp Denies cough GI Denies abdominal pain Musc Denies abnormal gait, Denies muscle cramps and Denies radiating pain into limb Skin/Breast Denies skin ulcer and Denies wounds Neuro Reports Normal hearing present and Denies abnormal gait Psych Reports no additional complaints Physical Exam Const General: cooperative, healthy appearing and comfortable Orientation/consciousness: oriented to person, oriented to place and oriented to time HEENT Head: Yes normal to inspection Neck Neck: Yes normal visual inspection Carotids: no bruits Chest Chest palpation & inspection: normal inspection of the chest Resp Effort & Inspection: normal respiratory effort and able to speak in complete sentences Auscultation: clear to auscultation bilaterally, no crackles, no rales, no rhonchi and no wheezes Cardio Rate: regular rate Rhythm: regular rhythm Heart sounds: S1 normal heart sound present and S2 normal heart sound present Bruits: no carotid bruits Peripheral pulses: Peripheral pulses 2+ throughout GI Inspection: Yes normal to inspection Skin Other: Right stump lateral aspect approximately a 6 cm in length opening by a 0.5 cm excellent granulation base. Bleeding well. Left stump healed Wounds: amputation site Hair: normal Neuro General: oriented to person, oriented to place and oriented to time Cranial nerves: Yes CN's II-XII intact bilaterally and Yes Normal hearing present Cognition (Neuro): normal cognition Motor exam (neuro): 5/5 motor strength present throughout Extrem Other: venous exam: No significant superficial varicosities or spider telangiectasias, minimal edema General: No clubbing, No cyanosis and No edema Psych Appearance: grossly normal Mental Status: mental status grossly normal Speech and movement: Normal speech and movement present Assessment & Plan Assessment & Plan (1) Status post below knee amputation of right lower extremity: Code(s): Z89.511 - Acquired absence of right leg below knee Plan: In short patient is doing well status post BKA. Residual sutures removed. Wound cleaned. Continue with dry protective dressings with foam. Will follow-up in approximately 2 weeks time. If stable will start with prosthetic fitting. Thank you for allowing us to assist in his care. Coding Level of Care Code Est Pt Level 4 (82183) Diagnoses Status post below knee amputation of right lower extremity Z89.511
== END 2022-11-04 11:43 | disposition home or self-care (01) ==
PROVIDERS: PCP Family Medicine; Visit Provider Surgery Vascular Surgery
DX: Z89.511 Acquired absence of right leg below knee (principal)
CPT/HCPCS: 99024

== ENCOUNTER → 2022-11-04 10:47 | Outpatient (BNVA) | payer MEDICARE, SELFPAY | PROVIDERS: PCP Family Medicine; Visit Provider Surgery Vascular Surgery | DX: Z47.81 Encounter for orthopedic aftercare following surgical amputation (principal); Z89.511 Acquired absence of right leg below knee | CPT/HCPCS: 99212 ==

== ENCOUNTER 2022-11-18 11:24 | Outpatient (AMB) | payer MEDICARE, SELFPAY ==
--- NOTE | 2022-11-18 11:25 | MHC.OFFVIS ---
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 Bandage changed daily by . Pt came once last week and will have PT again next week Accompanied by: Spouse Allergies No Known Allergies Allergy (Verified 11/18/22 11:33) HPI 2 week follow up wound check HPI Details Very pleasant 87-year-old gentleman presents for stump check status post right BKA. Appears to be doing relatively well. He did have all his sutures and bebeto removed. Has some mild dry at areas along the incision line. Of note superior to that he has some excoriated areas of skin where the tape was. It has become a raw surface and has been a source of bleeding for him. Of note he is on aspirin and Plavix. He now presents for routine follow-up [facility] Medical History Chronic low back pain BPH (benign prostatic hyperplasia) Hyperlipidemia Type 2 diabetes mellitus Peripheral arterial disease Social History Household Members: [facility] Do you presently have visiting nurse or other home services: No Alcohol intake: current Alcohol intake frequency: holidays/special occasions only Patient Tobacco Use Status: Never used Tobacco service: No Review of Systems Const All systems reviewed & are unremarkable except as noted in HPI and below Reports no additional complaints ENT Reports Normal hearing present Card Denies chest pain, Denies chest pain at rest, Denies chest pain with activity and Denies pedal edema Resp Denies cough GI Denies abdominal pain Musc Denies abnormal gait, Denies muscle cramps and Denies radiating pain into limb Skin/Breast Denies skin ulcer and Denies wounds Neuro Reports Normal hearing present and Denies abnormal gait Psych Reports no additional complaints Physical Exam Const General: cooperative, healthy appearing and comfortable Orientation/consciousness: oriented to person, oriented to place and oriented to time HEENT Head: Yes normal to inspection Neck Neck: Yes normal visual inspection Carotids: no bruits Chest Chest palpation & inspection: normal inspection of the chest Resp Effort & Inspection: normal respiratory effort and able to speak in complete sentences Auscultation: clear to auscultation bilaterally, no crackles, no rales, no rhonchi and no wheezes Cardio Rate: regular rate Rhythm: regular rhythm Heart sounds: S1 normal heart sound present and S2 normal heart sound present Bruits: no carotid bruits Peripheral pulses: Peripheral pulses 2+ throughout GI Inspection: Yes normal to inspection Skin Other: Right side stump BKA incision line some dry excoriated areas. Superior to that area of denuded skin with some mild bleeding. Wounds: amputation site Hair: normal Neuro General: oriented to person, oriented to place and oriented to time Cranial nerves: Yes CN's II-XII intact bilaterally and Yes Normal hearing present Cognition (Neuro): normal cognition Motor exam (neuro): 5/5 motor strength present throughout Extrem Other: venous exam: No significant superficial varicosities or spider telangiectasias, minimal edema General: No clubbing, No cyanosis and No edema Psych Appearance: grossly normal Mental Status: mental status grossly normal Speech and movement: Normal speech and movement present Assessment & Plan Assessment & Plan (1) Status post below knee amputation of right lower extremity: Code(s): Z89.511 - Acquired absence of right leg below knee Plan: In short patient has slow to heal right lower extremity BKA stump. The area was cleared in cleaned. Would use foam dressings along with Kerlix wrap. Patient was instructed in worn not to place tape directly on the skin. We will follow-up with the patient approximately 3 weeks time. Thank you for allowing us to participate in his care. If there are any questions or concerns please do not hesitate to contact us. Coding Level of Care Code Est Pt Level 3 (77101) Diagnoses Status post below knee amputation of right lower extremity Z89.511
== END 2022-11-18 11:52 | disposition home or self-care (01) ==
PROVIDERS: PCP Family Medicine; Visit Provider Surgery Vascular Surgery
DX: Z89.511 Acquired absence of right leg below knee (principal)
CPT/HCPCS: 99024

== ENCOUNTER → 2022-11-18 11:24 | Outpatient (BNVA) | payer MEDICARE, SELFPAY | PROVIDERS: PCP Family Medicine; Visit Provider Surgery Vascular Surgery ==

== ENCOUNTER 2022-12-09 10:40 | Outpatient (AMB) | payer MEDICARE, SELFPAY ==
--- NOTE | 2022-12-09 10:49 | MHC.OFFVIS ---
Intake Intake Visit Reasons: 3 week follow up wound check Intake Note: 3 week follow up wound check Right BKA 10/02/22 w/ some surrounding wounds due to tape on the skin. Today the right bka stump looks much better, has lateral scabbing along the BKA incision line, other area around the stump has healed. Uses dry dressing as needed and lately has been open to air when at home. Accompanied by: Spouse Allergies No Known Allergies Allergy (Verified 12/09/22 11:00) HPI 3 week follow up wound check HPI Details Very pleasant 87-year-old gentleman status post right BKA. He has had a prior left BKA which has gone on to heal. Right side has just a nonhealing portion on the lateral aspect. In general appears to be doing extremely well. Stump healing well. [facility] Medical History Chronic low back pain BPH (benign prostatic hyperplasia) Hyperlipidemia Type 2 diabetes mellitus Peripheral arterial disease Social History Household Members: Spouse Housing: [facility] Do you presently have visiting nurse or other home services: No Alcohol intake: current Alcohol intake frequency: holidays/special occasions only Patient Tobacco Use Status: Never used Tobacco service: No Review of Systems Const All systems reviewed & are unremarkable except as noted in HPI and below Reports no additional complaints ENT Reports Normal hearing present Card Denies chest pain, Denies chest pain at rest, Denies chest pain with activity and Denies pedal edema Resp Denies cough GI Denies abdominal pain Musc Denies abnormal gait, Denies muscle cramps and Denies radiating pain into limb Skin/Breast Denies skin ulcer and Denies wounds Neuro Reports Normal hearing present and Denies abnormal gait Psych Reports no additional complaints Physical Exam Const General: cooperative, healthy appearing and comfortable Orientation/consciousness: oriented to person, oriented to place and oriented to time HEENT Head: Yes normal to inspection Neck Neck: Yes normal visual inspection Carotids: no bruits Chest Chest palpation & inspection: normal inspection of the chest Resp Effort & Inspection: normal respiratory effort and able to speak in complete sentences Auscultation: clear to auscultation bilaterally, no crackles, no rales, no rhonchi and no wheezes Cardio Rate: regular rate Rhythm: regular rhythm Heart sounds: S1 normal heart sound present and S2 normal heart sound present Bruits: no carotid bruits Peripheral pulses: Peripheral pulses 2+ throughout GI Inspection: Yes normal to inspection Skin Other: Right stump lateral aspect opening measuring 3 x 1.5 x 0.2 cm. Wounds: amputation site and wounds noted Hair: normal Neuro General: oriented to person, oriented to place and oriented to time Cranial nerves: Yes CN's II-XII intact bilaterally and Yes Normal hearing present Cognition (Neuro): normal cognition Motor exam (neuro): 5/5 motor strength present throughout Extrem Other: venous exam: No significant superficial varicosities or spider telangiectasias, minimal edema General: No clubbing, No cyanosis and No edema Psych Appearance: grossly normal Mental Status: mental status grossly normal Speech and movement: Normal speech and movement present Assessment & Plan Assessment & Plan (1) Status post below knee amputation of right lower extremity: Code(s): Z89.511 - Acquired absence of right leg below knee Plan: Doing well status post right BKA. Wound slow to heal. Appears to be going fairly well and relatively clean. We did discussed local wound care and the patient will follow up with us in approximately 3 weeks time. Thank you for allowing us to assist in his care. Coding Level of Care Code Est Pt Level 3 (19950) Diagnoses Status post below knee amputation of right lower extremity Z89.511
== END 2022-12-09 11:15 | disposition home or self-care (01) ==
PROVIDERS: PCP Family Medicine; Visit Provider Surgery Vascular Surgery
DX: Z89.511 Acquired absence of right leg below knee (principal)
CPT/HCPCS: 99024

== ENCOUNTER → 2022-12-09 10:40 | Outpatient (BNVA) | payer MEDICARE, SELFPAY | PROVIDERS: PCP Family Medicine; Visit Provider Surgery Vascular Surgery | DX: Z47.81 Encounter for orthopedic aftercare following surgical amputation (principal); Z89.511 Acquired absence of right leg below knee; Z89.512 Acquired absence of left leg below knee | CPT/HCPCS: 99212 ==

== ENCOUNTER 2023-01-01 10:26 | Outpatient (AMB) | payer MEDICARE, SELFPAY ==
--- NOTE | 2023-01-01 10:29 | A.OFFVIS_ITS ---
Intake Intake Visit Reasons: 3 week follow up wound check Intake Note: 3 week fu wound check pt has right BKA 10/02/22 Pt states that he think is infected that he has low grade fevers for the last 3 days He was advise to go to ER but he refuse.Pt states that it looks very irritated and he has drainage coming from it Accompanied by: Spouse Allergies No Known Allergies Allergy (Verified 01/01/23 10:33) HPI 3 week follow up wound check HPI Details Very pleasant 87-year-old gentleman presents for follow-up status post right BKA. This was done back in 10/02/2022. He had been doing relatively well and the lateral aspect of that stump appeared to be closing. This past weekend he had a temperature as high as 102 degrees and did not feel well. EMT is actually we came to his house but he refused to go. He reports that he has been doing relatively well since that time and has had no repeat temperature spikes. Now presents for follow-up [facility] Medical History Chronic low back pain BPH (benign prostatic hyperplasia) Hyperlipidemia Type 2 diabetes mellitus Peripheral arterial disease Social History Household Members: Spouse Housing: Condominium Do you presently have visiting nurse or other home services: No Alcohol intake: current Alcohol intake frequency: holidays/special occasions only Patient Tobacco Use Status: Never used Tobacco service: No Review of Systems Const All systems reviewed & are unremarkable except as noted in HPI and below Reports no additional complaints ENT Reports Normal hearing present Card Denies chest pain, Denies chest pain at rest, Denies chest pain with activity and Denies pedal edema Resp Denies cough GI Denies abdominal pain Musc Denies abnormal gait, Denies muscle cramps and Denies radiating pain into limb Skin/Breast Denies skin ulcer and Denies wounds Neuro Reports Normal hearing present and Denies abnormal gait Psych Reports no additional complaints Physical Exam Const General: cooperative, healthy appearing and comfortable Orientation/consciousness: oriented to person, oriented to place and oriented to time HEENT Head: Yes normal to inspection Neck Neck: Yes normal visual inspection Carotids: no bruits Chest Chest palpation & inspection: normal inspection of the chest Resp Effort & Inspection: normal respiratory effort and able to speak in complete sentences Auscultation: clear to auscultation bilaterally, no crackles, no rales, no rhonchi and no wheezes Cardio Rate: regular rate Rhythm: regular rhythm Heart sounds: S1 normal heart sound present and S2 normal heart sound present Bruits: no carotid bruits Peripheral pulses: Peripheral pulses 2+ throughout GI Inspection: Yes normal to inspection Skin Wounds: amputation site (Wound measures 2 x 1.5 cm - fluid drain from within.) Hair: normal Neuro General: oriented to person, oriented to place and oriented to time Cranial nerves: Yes CN's II-XII intact bilaterally and Yes Normal hearing present Cognition (Neuro): normal cognition Motor exam (neuro): 5/5 motor strength present throughout Extrem Other: venous exam: No significant superficial varicosities or spider telangiectasias, minimal edema General: No clubbing, No cyanosis and No edema Psych Appearance: grossly normal Mental Status: mental status grossly normal Speech and movement: Normal speech and movement present Assessment & Plan Assessment & Plan (1) Status post below knee amputation of right lower extremity: Code(s): Z89.511 - Acquired absence of right leg below knee Plan: In short patient has a nonhealing right BKA stump. We will change the dressings to alginate as he is draining fluid. In addition there is some mild surrounding erythema and will start him on Keflex. I have scheduled him for a one-week follow-up. Thank you for allowing us to assist in his care Medications: New cephalexin 500 mg PO BID 20 caps 0RF Coding Level of Care Code Est Pt Level 4 (88537) Diagnoses Status post below knee amputation of right lower extremity Z89.511
== END 2023-01-01 10:52 | disposition home or self-care (01) ==
PROVIDERS: PCP Family Medicine; Visit Provider Surgery Vascular Surgery
DX: Z89.511 Acquired absence of right leg below knee (principal)
CPT/HCPCS: 99214

== ENCOUNTER → 2023-01-01 10:26 | Outpatient (BNVA) | payer MEDICARE, SELFPAY | PROVIDERS: PCP Family Medicine; Visit Provider Surgery Vascular Surgery | DX: T81.89XD Other complications of procedures, not elsewhere classified, subsequent encounter (principal); T87.43 Infection of amputation stump, right lower extremity | CPT/HCPCS: 99212 ==

== ENCOUNTER 2023-01-08 13:05 | Outpatient (AMB) | payer MEDICARE, SELFPAY ==
--- NOTE | 2023-01-08 13:07 | MHC.OFFVIS ---
Intake Intake Visit Reasons: 1 week wound check Intake Note: 1 week follow up Right BKA 10/02/22 non-healing wound that was infected, Pt still taking Abx and states its looking better, no more serous drainage. DResssing changes daily with silver alginate. Accompanied by: Self / Same As Patient Allergies No Known Allergies Allergy (Verified 01/08/23 13:12) HPI 1 week wound check HPI Details Very pleasant 87-year-old gentleman presents for follow-up status post right BKA. Originally done on 10/02/2022. He appears to be doing relatively well. His fever spikes have resolved. He has started his antibiotic regimen of Keflex. He has approximately 3 more days left of this. He now presents for follow-up regarding a nonhealing lateral aspect of that stump. [facility] Medical History Chronic low back pain BPH (benign prostatic hyperplasia) Hyperlipidemia Type 2 diabetes mellitus Peripheral arterial disease Social History Household Members: Spouse Housing: [facility] Do you presently have visiting nurse or other home services: No Alcohol intake: current Alcohol intake frequency: holidays/special occasions only Patient Tobacco Use Status: Never used Tobacco service: No Review of Systems Const All systems reviewed & are unremarkable except as noted in HPI and below Reports no additional complaints ENT Reports Normal hearing present Card Denies chest pain, Denies chest pain at rest, Denies chest pain with activity and Denies pedal edema Resp Denies cough GI Denies abdominal pain Musc Denies abnormal gait, Denies muscle cramps and Denies radiating pain into limb Skin/Breast Denies skin ulcer and Denies wounds Neuro Reports Normal hearing present and Denies abnormal gait Psych Reports no additional complaints Physical Exam Const General: cooperative, healthy appearing and comfortable Orientation/consciousness: oriented to person, oriented to place and oriented to time HEENT Head: Yes normal to inspection Neck Neck: Yes normal visual inspection Carotids: no bruits Chest Chest palpation & inspection: normal inspection of the chest Resp Effort & Inspection: normal respiratory effort and able to speak in complete sentences Auscultation: clear to auscultation bilaterally, no crackles, no rales, no rhonchi and no wheezes Cardio Rate: regular rate Rhythm: regular rhythm Heart sounds: S1 normal heart sound present and S2 normal heart sound present Bruits: no carotid bruits Peripheral pulses: Peripheral pulses 2+ throughout GI Inspection: Yes normal to inspection Skin Other: Right lateral stump - 3 x 2 open ulcer. No fluid collection noted. Wounds: no wounds Hair: normal Neuro General: oriented to person, oriented to place and oriented to time Cranial nerves: Yes CN's II-XII intact bilaterally and Yes Normal hearing present Cognition (Neuro): normal cognition Motor exam (neuro): 5/5 motor strength present throughout Extrem Other: venous exam: No significant superficial varicosities or spider telangiectasias, minimal edema General: No clubbing, No cyanosis and No edema Psych Appearance: grossly normal Mental Status: mental status grossly normal Speech and movement: Normal speech and movement present Assessment & Plan Assessment & Plan (1) Status post below knee amputation of right lower extremity: Code(s): Z89.511 - Acquired absence of right leg below knee Plan: In short patient has nonhealing lateral aspect of the stump. It appears that there is no longer fluid collection it appears to be doing relatively well. Will start with alginate dressings. He was requested to complete his antibiotic regimen. He will follow up with us in approximately 2 weeks time to ensure that this continues to heal appropriately. Thank you for allowing us to assist in his care. If there are any questions or concerns please do not hesitate to contact us. Coding Level of Care Code Est Pt Level 3 (21667) Diagnoses Status post below knee amputation of right lower extremity Z89.511
== END 2023-01-08 13:41 | disposition home or self-care (01) ==
PROVIDERS: PCP Family Medicine; Visit Provider Surgery Vascular Surgery
DX: Z89.511 Acquired absence of right leg below knee (principal)
CPT/HCPCS: 99213

== ENCOUNTER → 2023-01-08 13:05 | Outpatient (BNVA) | payer MEDICARE, SELFPAY | PROVIDERS: PCP Family Medicine; Visit Provider Surgery Vascular Surgery | DX: Z89.511 Acquired absence of right leg below knee (principal) | CPT/HCPCS: 99212 ==

== ENCOUNTER 2023-02-12 13:04 | Outpatient (AMB) | payer MEDICARE, SELFPAY ==
--- NOTE | 2023-02-12 13:21 | A.OFFVIS_ITS ---
Intake Intake Visit Reasons: 2 week follow BKA wound check Intake Note: Right BKA 10/02/22, bandage changed daily, looks larger than previous visit. Accompanied by: Self / Same As Patient Allergies No Known Allergies Allergy (Verified 02/12/23 13:26) HPI 2 week follow BKA wound check HPI Details Very pleasant 87-year-old gentleman presents for follow-up regarding nonhealing right lower extremity stump. He had undergone right BKA on 10/02/2022. The lateral aspect of that stump has opened up. He now presents for routine wound check. He does report after the role last round of antibiotics he is feeling significantly better. [facility] Medical History Chronic low back pain BPH (benign prostatic hyperplasia) Hyperlipidemia Type 2 diabetes mellitus Peripheral arterial disease Social History Household Members: Spouse Housing: [facility] Do you presently have visiting nurse or other home services: No Alcohol intake: current Alcohol intake frequency: holidays/special occasions only Comment: pt. stated wc bound at baseline Patient Tobacco Use Status: Never used Tobacco service: No Review of Systems Const All systems reviewed & are unremarkable except as noted in HPI and below Reports no additional complaints ENT Reports Normal hearing present Card Denies chest pain, Denies chest pain at rest, Denies chest pain with activity and Denies pedal edema Resp Denies cough GI Denies abdominal pain Musc Denies abnormal gait, Denies muscle cramps and Denies radiating pain into limb Skin/Breast Denies skin ulcer and Denies wounds Neuro Reports Normal hearing present and Denies abnormal gait Psych Reports no additional complaints Physical Exam Const General: cooperative, healthy appearing and comfortable Orientation/consciousness: oriented to person, oriented to place and oriented to time HEENT Head: Yes normal to inspection Neck Neck: Yes normal visual inspection Carotids: no bruits Chest Chest palpation & inspection: normal inspection of the chest Resp Effort & Inspection: normal respiratory effort and able to speak in complete sentences Auscultation: clear to auscultation bilaterally, no crackles, no rales, no rhonchi and no wheezes Cardio Rate: regular rate Rhythm: regular rhythm Heart sounds: S1 normal heart sound present and S2 normal heart sound present Bruits: no carotid bruits Peripheral pulses: Peripheral pulses 2+ throughout GI Inspection: Yes normal to inspection Skin Other: Right stump lateral aspect has an opening measuring 4 x 2.5 x 0.7 cm. There is overlying fibrinous necrotic material. Wounds: no wounds Hair: normal Neuro General: oriented to person, oriented to place and oriented to time Cranial nerves: Yes CN's II-XII intact bilaterally and Yes Normal hearing present Cognition (Neuro): normal cognition Motor exam (neuro): 5/5 motor strength present throughout Extrem Other: venous exam: No significant superficial varicosities or spider telangiectasias, minimal edema General: No clubbing, No cyanosis and No edema Psych Appearance: grossly normal Mental Status: mental status grossly normal Speech and movement: Normal speech and movement present Assessment & Plan Assessment & Plan (1) Status post below knee amputation of right lower extremity: Code(s): Z89.511 - Acquired absence of right leg below knee Plan: In short patient has a nonhealing right below-knee stump. We will plan for right lower extremity stump debridement. Risks benefits complications of the procedure were discussed in detail with the patient. They understood and consented. We will try to schedule for Thursday. Thank you for allowing us to assist in his care Coding Level of Care Code Est Pt Level 4 (33054) Diagnoses Status post below knee amputation of right lower extremity Z89.511
== END 2023-02-12 14:21 | disposition home or self-care (01) ==
PROVIDERS: PCP Family Medicine; Visit Provider Surgery Vascular Surgery
DX: T87.89 Other complications of amputation stump (principal); Z89.511 Acquired absence of right leg below knee
CPT/HCPCS: 99214

== ENCOUNTER → 2023-02-12 13:04 | Outpatient (BNVA) | payer MEDICARE, SELFPAY | PROVIDERS: PCP Family Medicine; Visit Provider Surgery Vascular Surgery | DX: T87.89 Other complications of amputation stump (principal); Z89.611 Acquired absence of right leg above knee | CPT/HCPCS: 99212 ==

== ENCOUNTER 2023-02-16 07:29 | Day surgery (SDC) | payer MEDICARE, SELFPAY ==
--- NOTE | 2023-02-13 12:33 | HO.ANESPROP2 ---
Documented by User: Jennifer Grijalva NP 02/13/23 12:39 HPI - Anesthesia Eval Consult details Narrative: 87yo M for Right Stump Debridement Soft Tissue s/p BKA 09/2022 with GA-LMA 4 Plavix for PAD PMFSH Active Problems Active Problems: All Active Problems (Updated 10/14/22 @ 00:03 by Background Meredith) Status post below knee amputation of right lower extremity (Acute) Past Medical History Medical History Afib Chronic low back pain BPH (benign prostatic hyperplasia) Hyperlipidemia Type 2 diabetes mellitus Peripheral arterial disease Family History Family history of problems with anesthesia: No Surgical History History of Problems with Anesthesia: No Social History Social History Household Members: Spouse Housing: Condominium Do you presently have visiting nurse or other home services: No Alcohol intake: current Alcohol intake frequency: holidays/special occasions only Comment: pt. stated wc bound at baseline Patient Tobacco Use Status: Never used Tobacco service: No Meds Allergies Allergy/AdvReac Type Severity Reaction Status Date / Time No Known Allergies Allergy Verified 02/16/23 08:28 Home Medications Medication Instructions Recorded Confirmed Last Taken Type atorvastatin 10 mg tablet 10 mg PO DAILY 09/25/22 09/25/22 09/25/22 History clopidogrel 75 mg tablet 75 mg PO DAILY 09/25/22 02/16/23 02/14/23 History collagenase clostridium histo. 250 1 appl topical DAILY 09/25/22 09/25/22 Unknown History unit/gram topical ointment (Santyl) furosemide 20 mg tablet 20 mg PO DAILY 09/25/22 09/25/22 09/25/22 History hydrocodone 10 mg-acetaminophen 1 tab PO QID PRN pain 09/25/22 09/25/22 09/25/22 14:00 History 325 mg tablet insulin aspart U-100 100 unit/mL See Protocol subcut TIDAC 09/25/22 09/25/22 09/25/22 History (3 mL) subcutaneous pen (Novolog FlexPen U-100 Insulin aspart) insulin glargine-yfgn 100 unit/mL 6 unit subcut BEDTIME 09/25/22 09/25/22 09/24/22 History (3 mL) subcutaneous pen (Semglee (insulin glargine-yfgn) Pen) metformin 1,000 mg tablet 1,000 mg PO BID 09/25/22 09/25/22 09/25/22 History tamsulosin 0.4 mg capsule 0.4 mg PO DAILY 09/25/22 09/25/22 09/25/22 History metronidazole 500 mg tablet 500 mg PO BID 10/21/22 Unknown History Exam Narrative Narrative: EKG 09/2022 Vent. Rate : 073 BPM Atrial Rate : 000 BPM P-R Int : 000 ms QRS Dur : 088 ms QT Int : 418 ms P-R-T Axes : 000 027 032 degrees QTc Int : 460 ms Atrial fibrillation Low voltage QRS Abnormal ECG When compared with ECG of 25-SEP-2022 17:17, No significant change was found Assessment and Plan Assessment Anesthesia Assessment: Chart Reviewed Final Anesthetic Review Family History of Problems with Anesthesia: No History of Problems with Anesthesia: No Documented by User: Deyanira Mc MD 02/16/23 10:56 [facility] Past Medical History Medical History Afib Chronic low back pain BPH (benign prostatic hyperplasia) Hyperlipidemia Type 2 diabetes mellitus Peripheral arterial disease Social History Social History Household Members: Spouse Housing: Condominium Do you presently have visiting nurse or other home services: No Alcohol intake: current Alcohol intake frequency: holidays/special occasions only Comment: pt. stated wc bound at baseline Patient Tobacco Use Status: Never used Tobacco service: No Meds Allergies Allergy/AdvReac Type Severity Reaction Status Date / Time No Known Allergies Allergy Verified 02/16/23 08:28 Home Medications Medication Instructions Recorded Confirmed Last Taken Type atorvastatin 10 mg tablet 10 mg PO DAILY 09/25/22 09/25/22 09/25/22 History clopidogrel 75 mg tablet 75 mg PO DAILY 09/25/22 02/16/2323 History collagenase clostridium histo. 250 1 appl topical DAILY 09/25/22 09/25/22 Unknown History unit/gram topical ointment (Santyl) furosemide 20 mg tablet 20 mg PO DAILY 09/25/22 09/25/22 09/25/22 History hydrocodone 10 mg-acetaminophen 1 tab PO QID PRN pain 09/25/22 09/25/22 09/25/22 14:00 History 325 mg tablet insulin aspart U-100 100 unit/mL See Protocol subcut TIDAC 09/25/22 09/25/22 09/25/22 History (3 mL) subcutaneous pen (Novolog FlexPen U-100 Insulin aspart) insulin glargine-yfgn 100 unit/mL 6 unit subcut BEDTIME 09/25/22 09/25/22 09/24/22 History (3 mL) subcutaneous pen (Semglee (insulin glargine-yfgn) Pen) metformin 1,000 mg tablet 1,000 mg PO BID 09/25/22 09/25/22 09/25/22 History tamsulosin 0.4 mg capsule 0.4 mg PO DAILY 09/25/22 09/25/22 09/25/22 History metronidazole 500 mg tablet 500 mg PO BID 10/21/22 Unknown History Exam Height,Weight and Vital Signs: Weight 90.718 kg Vital Signs Temp Pulse Resp BP Pulse Ox O2 Del Method 02/16/23 08:28 97.4 F 59 16 168/62 H 94 Room Air Pertinent Lab Results Pertinent Lab Results: Lab Results 02/16/23 02/16/23 Range/Units 07:59 08:09 WBC 7.4 (4.8-10.8) X10*3/uL RBC 3.28 L (4.60-5.80) X10*6/uL Hgb 9.5 L D (14.0-18.0) g/dl Hct 30.1 L (42.0-52.0) % MCV 91.8 (80.0-98.0) fL MCH 29.0 (27.0-33.0) pg MCHC 31.6 (31.0-36.0) g/dl RDW 15.3 (11.0-16.0) % Plt Count 303 D (160-400) X10*3/uL MPV 9.5 (9.4-12.4) fL Absolute Nucleated RBC 0.000 (0.0-0.012) X10*3/uL Nucleated RBC % (auto) 0.0 (0.0-0.2) /100WBC Sodium 139 (135-145) mmol/L Potassium 5.0 (3.3-5.1) mmol/L Chloride 105 (96-108) mmol/L Carbon Dioxide 25 (22-29) mmol/L Anion Gap 14 (12-20) BUN 37 H (9-16) mg/dL Creatinine 1.36 (0.5-1.4) mg/dL Estim Creat Clear Calc TNP Estimated GFR 50 POC Glucose 171 H (60-115) mg/dL Fasting Glucose 170 H (60-99) mg/dL Calcium 9.6 D (8.4-10.2) mg/dL Airway Mallampati Class: II TM Dist: >3cm Neck ROM: Full Loose/Missing/Broken Teeth: Yes (Some broken. Some missing ) Heart: Irregularly irregular Lungs: CTAB Assessment and Plan Assessment Anesthesia Assessment: Anesthesia Plan Discussed Final Anesthetic Review NPO: Yes ASA Class: III Final Preanesthetic Review: No Changes in Pt Med Stat, Meds/Allgs Chart Reviewed, Consent Obtained/Reviewed and Anes Risks/Benef Reviewed Patient Risk: Intermediate Procedure Risk: Low Assessment/Block/Sedation in SS: Assess/Block/Sedation-SS Anesthetic Plan Anesthetic Plan: GA Disposition: Standard PACU
[2023-02-16 07:36] VITALS: BMI 33.3
[2023-02-16 08:04] LABS: Glucose, Whole Blood 171 mg/dL (60-115)
[2023-02-16 08:18] LABS: Hematocrit 30.1 % (42.0-52.0); Hemoglobin 9.5 g/dl (14.0-18.0); Mean Corpuscular HGB Conc 31.6 g/dl (31.0-36.0); Mean Corpuscular Volume 91.8 fL (80.0-98.0); Mean Platelet Volume 9.5 fL (9.4-12.4); Platelet Count 303 X10*3/uL (160-400); Red Blood Count 3.28 X10*6/uL (4.60-5.80); Red Cell Distribution Width 15.3 % (11.0-16.0); White Blood Count 7.4 X10*3/uL (4.8-10.8)
[2023-02-16 08:28] VITALS: BP 168/62; PULSE 59; RESP 16; TEMP 36.3; O2SAT 94
[2023-02-16] MEDS: Lactated Ringers 1,000 ML 100 ML IVCONT (08:31)
[2023-02-16 08:38] LABS: Anion Gap 14 (12-20); Blood Urea Nitrogen 37 mg/dL (9-16); Calcium 9.6 mg/dL (8.4-10.2); Carbon Dioxide 25 mmol/L (22-29); Chloride 105 mmol/L (96-108); Estimated Glomerular Filt Rate 50; Glucose Fasting 170 mg/dL (60-99); Sodium 139 mmol/L (135-145)
--- NOTE | 2023-02-16 10:26 | P.OP_ITS ---
Operative Note Operative Note Date of Service: 02/16/23 Narrative: Operative note by [facility] Preoperative diagnosis: nonhealing right BKA stump Postoperative diagnosis: same Procedure:1. right stump debridement excisional into muscle2. placement skin substitute Surgeon:Berry Gonzalez M.D. Night Assistant: shreyas Anesthesia: general Specimens: none Drains: none Estimated blood loss: minimal Indications: very pleasant 87-year-old gentleman who presents for follow-up with nonhealing right BKA stump. He had a healed stump which developed a lateral ulcer. It has been nonhealing for some time now he presents for debridement and artificial skin placement. The patient has signed the informed consent after reviewing risks, complications, benefits, and alternatives previously discussed with the patient. The patient was given the opportunity to ask any additional questions or voice any concerns. All questions were answered to the patient's satisfaction. Procedure in detail: Patient was brought to the operating room prior to which a time-out was called for patient identification and site verification. Right stump was prepped and draped in standard surgical fashion. We did debridement of that lateral opening. It was measuring 4 x 3 x 0.7 cm. Using pickups Metzenbaum scissors and a 15 blade the fibrinous necrotic material was removed off the tissue bed. we debrided down into muscle. Once completely cleared it was thoroughly irrigated. Adequate hemostasis was achieved. Post debridement measurement was 4.2 x 3.2 x 0.9 cmOnce this was accomplished we trimmed a piece of Kerecis artificial skin. This was placed in and sutured into appropriate position after trimmed to size with a 3-0 Polysorb. After that we created a buttress using 2 by to use and Xeroform. This was tacked down using a 3-0 nylon in all 4 quadrants. Once this was done a pressure dressing was applied with 4x4s ABD pad Kerlix and finally a 4 in Al. At the end the case sponge needle instrument counts were correct. Patient tolerated the procedure well. Returned to recovery with stable vitals. This note is constructed using voice recognition software. While every effort has been made to ensure accuracy, armed security officer errors may have been included. Thank you for allowing me to participate in the care of your patient. Yours sincerely, Berry Gonzalez MD, FACS, R.P.V.I.
[2023-02-16 10:30] VITALS: BP 160/43; PULSE 67; RESP 16; TEMP 37.2; O2SAT 100
[2023-02-16 10:35] VITALS: BP 161/59; PULSE 58; RESP 16; O2SAT 98
[2023-02-16 10:40] VITALS: BP 143/71; PULSE 57; RESP 16; O2SAT 98
[2023-02-16 10:45] VITALS: BP 165/49; PULSE 58; RESP 16; O2SAT 98
[2023-02-16] MEDS: oxyCODONE HCl Immed Release 5 MG TABLET PO (10:54)
[2023-02-16 11:00] VITALS: PULSE 61; RESP 16; TEMP 37.4; O2SAT 98
== END 2023-02-16 11:45 | disposition home or self-care (01) ==
PROVIDERS: Nurse Practitioner; PCP Family Medicine; Visit Provider Surgery Vascular Surgery
PROC: (CPT 15271; principal; 2023-02-16 09:10)
DX: T87.89 Other complications of amputation stump (principal); T87.53 Necrosis of amputation stump, right lower extremity; G89.29 Other chronic pain; E11.51 Type 2 diabetes mellitus with diabetic peripheral angiopathy without gangrene; M54.50 Low back pain, unspecified; E78.5 Hyperlipidemia, unspecified; N40.0 Benign prostatic hyperplasia without lower urinary tract symptoms; I48.91 Unspecified atrial fibrillation; Z79.4 Long term (current) use of insulin; Z79.84 Long term (current) use of oral hypoglycemic drugs; Z79.02 Long term (current) use of antithrombotics/antiplatelets; Z79.899 Other long term (current) drug therapy; Z89.511 Acquired absence of right leg below knee
CPT/HCPCS: 15271; 11043; 36415; 80048; 82947; 85027; J0131; J0690; J2405; J2704; J2795; J3010; Q4158

== ENCOUNTER → 2023-02-16 07:29 | Outpatient (BNV) | payer MEDICARE, SELFPAY | PROVIDERS: PCP Family Medicine; Visit Provider Surgery Vascular Surgery | DX: T87.89 Other complications of amputation stump (principal) | CPT/HCPCS: 15271; 27884 ==

== ENCOUNTER 2023-02-19 13:39 | Outpatient (AMB) | payer MEDICARE, SELFPAY ==
--- NOTE | 2023-02-19 13:59 | MHC.OFFVIS ---
Intake Intake Visit Reasons: post op[ fu per dr keane Intake Note: Post Op Right BKA surgical debridement w/ skin substitute graft 02/16/23. Dressing fell off this a.m. but sutures still in place Accompanied by: Self / Same As Patient Allergies No Known Allergies Allergy (Verified 02/19/23 14:06) HPI post op[ fu per dr keane HPI Details Very pleasant 87-year-old gentleman status post debridement of nonhealing right stump. He has undergone placement of skin substitute. He appears to be doing relatively well. Now for routine postop follow-up. [facility] Medical History Afib Chronic low back pain BPH (benign prostatic hyperplasia) Hyperlipidemia Type 2 diabetes mellitus Peripheral arterial disease Social History Household Members: Spouse Housing: [facility] Do you presently have visiting nurse or other home services: No Alcohol intake: current Alcohol intake frequency: holidays/special occasions only Comment: pt. stated wc bound at baseline Patient Tobacco Use Status: Never used Tobacco service: No Review of Systems Const All systems reviewed & are unremarkable except as noted in HPI and below Reports no additional complaints ENT Reports Normal hearing present Card Denies chest pain, Denies chest pain at rest, Denies chest pain with activity and Denies pedal edema Resp Denies cough GI Denies abdominal pain Musc Denies abnormal gait, Denies muscle cramps and Denies radiating pain into limb Skin/Breast Denies skin ulcer and Denies wounds Neuro Reports Normal hearing present and Denies abnormal gait Psych Reports no additional complaints Physical Exam Const General: cooperative, healthy appearing and comfortable Orientation/consciousness: oriented to person, oriented to place and oriented to time HEENT Head: Yes normal to inspection Neck Neck: Yes normal visual inspection Carotids: no bruits Chest Chest palpation & inspection: normal inspection of the chest Resp Effort & Inspection: normal respiratory effort and able to speak in complete sentences Auscultation: clear to auscultation bilaterally, no crackles, no rales, no rhonchi and no wheezes Cardio Rate: regular rate Rhythm: regular rhythm Heart sounds: S1 normal heart sound present and S2 normal heart sound present Bruits: no carotid bruits Peripheral pulses: Peripheral pulses 2+ throughout GI Inspection: Yes normal to inspection Skin Other: Right stump buttressed dressing removed. Wound base appears to have excellent take of skin substitute. Wounds: no wounds Hair: normal Neuro General: oriented to person, oriented to place and oriented to time Cranial nerves: Yes CN's II-XII intact bilaterally and Yes Normal hearing present Cognition (Neuro): normal cognition Motor exam (neuro): 5/5 motor strength present throughout Extrem Other: venous exam: No significant superficial varicosities or spider telangiectasias, minimal edema General: No clubbing, No cyanosis and No edema Psych Appearance: grossly normal Mental Status: mental status grossly normal Speech and movement: Normal speech and movement present Assessment & Plan Assessment & Plan (1) Status post below knee amputation of right lower extremity: Code(s): Z89.511 - Acquired absence of right leg below knee Plan: In short patient is doing extremely well status post right stump debridement. Continue with local wound care and dressings. Will need piece of Adaptic followed by 4 x 4 and Kerlix wrap to be changed 3 times a week. He will follow up with us in approximately 2 weeks time. Thank you for allowing us to assist in his care Coding Level of Care Code Est Pt Level 3 (43811) Diagnoses Status post below knee amputation of right lower extremity Z89.511
== END 2023-02-19 14:30 | disposition home or self-care (01) ==
PROVIDERS: PCP Family Medicine; Visit Provider Surgery Vascular Surgery
DX: Z89.511 Acquired absence of right leg below knee (principal)
CPT/HCPCS: 99213

== ENCOUNTER → 2023-02-19 13:39 | Outpatient (BNVA) | payer MEDICARE, SELFPAY | PROVIDERS: PCP Family Medicine; Visit Provider Surgery Vascular Surgery | DX: Z48.817 Encounter for surgical aftercare following surgery on the skin and subcutaneous tissue (principal); Z89.511 Acquired absence of right leg below knee | CPT/HCPCS: 99212 ==

== ENCOUNTER 2023-03-05 13:16 | Outpatient (AMB) | payer MEDICARE, SELFPAY ==
--- NOTE | 2023-03-05 13:17 | MHC.OFFVIS ---
Intake Vital Signs 03/05/23 13:25 Height 5 ft 5 in BP 118/62 Blood Pressure Location Lt brachial Position Sitting Pulse 71 Pulse Source Pulse Oximeter Pulse Oximetry (%) 99 Oxygen Delivery Method Room Air Intake Visit Reasons: 2 week follow up Intake Note: Pt presents to the office today for a 2 week follow up. Pt states he is doing well and denies any pain in his legs. Pt states his dressing was changed 2 days ago. Allergies No Known Allergies Allergy (Verified 03/05/23 13:26) HPI 2 week follow up HPI Details Very pleasant 87-year-old gentleman presents for follow-up status post right stump debridement and placement of skin substitute. Reports he is doing fairly well. There is some drainage from that wound but overall no significant issues. Now presents for routine wound check. [facility] Medical History Afib Chronic low back pain BPH (benign prostatic hyperplasia) Hyperlipidemia Type 2 diabetes mellitus Peripheral arterial disease Social History Household Members: Spouse Housing: [facility] Do you presently have visiting nurse or other home services: No Alcohol intake: current Alcohol intake frequency: holidays/special occasions only Comment: pt. stated wc bound at baseline Patient Tobacco Use Status: Never used Tobacco service: No Review of Systems Const All systems reviewed & are unremarkable except as noted in HPI and below Reports no additional complaints ENT Reports Normal hearing present Card Denies chest pain, Denies chest pain at rest, Denies chest pain with activity and Denies pedal edema Resp Denies cough GI Denies abdominal pain Musc Denies abnormal gait, Denies muscle cramps and Denies radiating pain into limb Skin/Breast Denies skin ulcer and Denies wounds Neuro Reports Normal hearing present and Denies abnormal gait Psych Reports no additional complaints Physical Exam Vital Signs: Last Vital Signs Pulse 71 03/05/23 13:25 BP 118/62 03/05/23 13:25 Pulse Ox 99 03/05/23 13:25 Oxygen Delivery Method Room Air 03/05/23 13:25 Const General: cooperative, healthy appearing and comfortable Orientation/consciousness: oriented to person, oriented to place and oriented to time HEENT Head: Yes normal to inspection Neck Neck: Yes normal visual inspection Carotids: no bruits Chest Chest palpation & inspection: normal inspection of the chest Resp Effort & Inspection: normal respiratory effort and able to speak in complete sentences Auscultation: clear to auscultation bilaterally, no crackles, no rales, no rhonchi and no wheezes Cardio Rate: regular rate Rhythm: regular rhythm Heart sounds: S1 normal heart sound present and S2 normal heart sound present Bruits: no carotid bruits Peripheral pulses: Peripheral pulses 2+ throughout GI Inspection: Yes normal to inspection Skin Other: Right stump dressing changed wound measuring 3 x 1.5 x 0.5 cm. Serous fluid coming from the wound bed. Good take of skin substitute. Wounds: no wounds Hair: normal Neuro General: oriented to person, oriented to place and oriented to time Cranial nerves: Yes CN's II-XII intact bilaterally and Yes Normal hearing present Cognition (Neuro): normal cognition Motor exam (neuro): 5/5 motor strength present throughout Extrem Other: venous exam: No significant superficial varicosities or spider telangiectasias, minimal edema General: No clubbing, No cyanosis and No edema Psych Appearance: grossly normal Mental Status: mental status grossly normal Speech and movement: Normal speech and movement present Assessment & Plan Assessment & Plan (1) Status post below knee amputation of right lower extremity: Code(s): Z89.511 - Acquired absence of right leg below knee Plan: Slowly healing stump ulcer. Would continue with local wound care including Adaptic and overlying foam. Patient will follow up with us in approximately 3 weeks time. Thank you for allowing us to assist in his care. Coding Level of Care Code Est Pt Level 3 (55636) Diagnoses Status post below knee amputation of right lower extremity Z89.511
[2023-03-05 13:25] VITALS: BP 118/62; PULSE 71; O2SAT 99
== END 2023-03-05 13:56 | disposition home or self-care (01) ==
PROVIDERS: PCP Family Medicine; Visit Provider Surgery Vascular Surgery
DX: Z89.511 Acquired absence of right leg below knee (principal)
CPT/HCPCS: 99024

== ENCOUNTER → 2023-03-05 13:16 | Outpatient (BNVA) | payer MEDICARE, SELFPAY | PROVIDERS: PCP Family Medicine; Visit Provider Surgery Vascular Surgery | DX: Z89.511 Acquired absence of right leg below knee (principal) | CPT/HCPCS: 99212 ==

== ENCOUNTER 2023-03-26 13:55 | Outpatient (AMB) | payer MEDICARE, SELFPAY ==
[2023-03-26 14:14] VITALS: BP 118/66; PULSE 72; O2SAT 98
--- NOTE | 2023-03-26 14:14 | MHC.OFFVIS ---
Intake Vital Signs 03/26/23 14:14 Height 5 ft 5 in BP 118/66 Blood Pressure Location Rt brachial Position Sitting Pulse 72 Pulse Source Pulse Oximeter Pulse Oximetry (%) 98 Oxygen Delivery Method Room Air Intake Visit Reasons: 3 week wound check Intake Note: Pt presents to the office today for a 3 week wound check follow up. Pt states there is still clear discharge coming from the wound and states that it becomes sore occasionally. Allergies No Known Allergies Allergy (Verified 03/26/23 14:16) HPI 3 week wound check HPI Details Very pleasant 87-year-old gentleman presents for follow-up evaluation regarding nonhealing stump. Had right stump debridement with skin substitute. He reports it is doing fairly well. has been doing all the dressing changes and has been religiously checking it. She has been doing dressing changes every other day. Reports it is doing fairly well. Now presents for routine wound check. [facility] Medical History Afib Chronic low back pain BPH (benign prostatic hyperplasia) Hyperlipidemia Type 2 diabetes mellitus Peripheral arterial disease Social History Household Members: Spouse Housing: [facility] Do you presently have visiting nurse or other home services: No Alcohol intake: current Alcohol intake frequency: holidays/special occasions only Comment: pt. stated wc bound at baseline Patient Tobacco Use Status: Never used Tobacco service: No Review of Systems Const All systems reviewed & are unremarkable except as noted in HPI and below Reports no additional complaints ENT Reports Normal hearing present Card Denies chest pain, Denies chest pain at rest, Denies chest pain with activity and Denies pedal edema Resp Denies cough GI Denies abdominal pain Musc Denies abnormal gait, Denies muscle cramps and Denies radiating pain into limb Skin/Breast Denies skin ulcer and Denies wounds Neuro Reports Normal hearing present and Denies abnormal gait Psych Reports no additional complaints Physical Exam Vital Signs: Last Vital Signs Pulse 72 03/26/23 14:14 BP 118/66 03/26/23 14:14 Pulse Ox 98 03/26/23 14:14 Oxygen Delivery Method Room Air 03/26/23 14:14 Const General: cooperative, healthy appearing and comfortable Orientation/consciousness: oriented to person, oriented to place and oriented to time HEENT Head: Yes normal to inspection Neck Neck: Yes normal visual inspection Carotids: no bruits Chest Chest palpation & inspection: normal inspection of the chest Resp Effort & Inspection: normal respiratory effort and able to speak in complete sentences Auscultation: clear to auscultation bilaterally, no crackles, no rales, no rhonchi and no wheezes Cardio Rate: regular rate Rhythm: regular rhythm Heart sounds: S1 normal heart sound present and S2 normal heart sound present Bruits: no carotid bruits Peripheral pulses: Peripheral pulses 2+ throughout GI Inspection: Yes normal to inspection Skin Other: Right stump measures 3 x 2 x 0.1 cm. Some mild serous drainage. Good take of skin substitute. Wounds: amputation site Hair: normal Neuro General: oriented to person, oriented to place and oriented to time Cranial nerves: Yes CN's II-XII intact bilaterally and Yes Normal hearing present Cognition (Neuro): normal cognition Motor exam (neuro): 5/5 motor strength present throughout Extrem Other: venous exam: No significant superficial varicosities or spider telangiectasias, minimal edema General: No clubbing, No cyanosis and No edema Psych Appearance: grossly normal Mental Status: mental status grossly normal Speech and movement: Normal speech and movement present Assessment & Plan Assessment & Plan (1) Status post below knee amputation of right lower extremity: Code(s): Z89.511 - Acquired absence of right leg below knee Plan: In short patient has undergone attempted debridement of that stump. It appears to be doing fairly well. The concern is that the stump does feel cold. It is slow to heal. I have switched it to alginate daily dressing changes. He will follow up with us in approximately 3 weeks time. Thank you for allowing us to assist in his care. If there are any questions or concerns please do not hesitate to contact us. Coding Level of Care Code Est Pt Level 3 (22856) Diagnoses Status post below knee amputation of right lower extremity Z89.511
== END 2023-03-26 14:41 | disposition home or self-care (01) ==
PROVIDERS: PCP Family Medicine; Visit Provider Surgery Vascular Surgery
DX: Z89.511 Acquired absence of right leg below knee (principal)
CPT/HCPCS: 99024

== ENCOUNTER → 2023-03-26 13:55 | Outpatient (BNVA) | payer MEDICARE, SELFPAY | PROVIDERS: PCP Family Medicine; Visit Provider Surgery Vascular Surgery | DX: Z89.511 Acquired absence of right leg below knee (principal) | CPT/HCPCS: 99212 ==

== ENCOUNTER 2023-04-16 14:00 | Outpatient (AMB) | payer MEDICARE, SELFPAY ==
--- NOTE | 2023-04-16 14:06 | A.OFFVIS_ITS ---
Intake Vital Signs 04/16/23 14:06 Height 5 ft 5 in Intake Visit Reasons: 3 week wound check Intake Note: follow up for Right BKA non-healing incision and surgical debridement 02/16/23. Still draining and bandage changed daily Accompanied by: Spouse Allergies No Known Allergies Allergy (Verified 04/16/23 14:12) HPI 3 week wound check HPI Details Very pleasant 87-year-old gentleman presents for routine follow-up regarding his nonhealing stump. He had his right stump debrided with skin substitutes. It appears to be slowly progressing but the stump remains cold. He now presents for routine wound check [facility] Medical History (Updated 04/17/23 @ 11:43 by Berry Gonzalez MD) Peripheral arterial disease Afib Chronic low back pain BPH (benign prostatic hyperplasia) Hyperlipidemia Type 2 diabetes mellitus Social History Household Members: Spouse Housing: [facility] Do you presently have visiting nurse or other home services: No Alcohol intake: current Alcohol intake frequency: holidays/special occasions only Comment: pt. stated wc bound at baseline Patient Tobacco Use Status: Never used Tobacco service: No Review of Systems Const All systems reviewed & are unremarkable except as noted in HPI and below Reports no additional complaints ENT Reports Normal hearing present Card Denies chest pain, Denies chest pain at rest, Denies chest pain with activity and Denies pedal edema Resp Denies cough GI Denies abdominal pain Musc Denies abnormal gait, Denies muscle cramps and Denies radiating pain into limb Skin/Breast Denies skin ulcer and Denies wounds Neuro Reports Normal hearing present and Denies abnormal gait Psych Reports no additional complaints Physical Exam Const General: cooperative, healthy appearing and comfortable Orientation/consciousness: oriented to person, oriented to place and oriented to time HEENT Head: Yes normal to inspection Neck Neck: Yes normal visual inspection Carotids: no bruits Chest Chest palpation & inspection: normal inspection of the chest Resp Effort & Inspection: normal respiratory effort and able to speak in complete sentences Auscultation: clear to auscultation bilaterally, no crackles, no rales, no rhonchi and no wheezes Cardio Rate: regular rate Rhythm: regular rhythm Heart sounds: S1 normal heart sound present and S2 normal heart sound present Bruits: no carotid bruits Peripheral pulses: Peripheral pulses 2+ throughout GI Inspection: Yes normal to inspection Skin Other: Right stump proximally a 3 x 2 x 0.1 cm ulcer with reasonable granulation base. Stump feels cold Wounds: no wounds Hair: normal Neuro General: oriented to person, oriented to place and oriented to time Cranial nerves: Yes CN's II-XII intact bilaterally and Yes Normal hearing present Cognition (Neuro): normal cognition Motor exam (neuro): 5/5 motor strength present throughout Extrem Other: venous exam: No significant superficial varicosities or spider telangiectasias, minimal edema General: No clubbing, No cyanosis and No edema Psych Appearance: grossly normal Mental Status: mental status grossly normal Speech and movement: Normal speech and movement present Assessment & Plan Assessment & Plan (1) Peripheral arterial disease: Code(s): I73.9 - Peripheral vascular disease, unspecified Plan: Patient has a nonhealing and cold right BKA stump. I have discussed the pathophysiology of peripheral vascular disease with the patient. I have also discussed risk factor modification. I do feel there is an element of peripheral vascular disease. the patient would benefit from a right leg endovascular peripheral angiogram with possible angioplasty, stent, and/or atherectomy. This has been discussed in detail with the patient along with risks, benefits, and complications. This includes but is not limited to bleeding, infection, heart attack, need for emergent surgical repair, limb ischemia, blood vessel damage, bleeding, puncture, kidney injury, bruising, allergic reaction, and skin reaction. The patient demonstrates a clear understanding. We will schedule for the next appropriate time. Thank you for allowing us to assist in this patient's care. Coding Level of Care Code Est Pt Level 4 (77911) Diagnoses Peripheral arterial disease I73.9
== END 2023-04-16 14:39 | disposition home or self-care (01) ==
PROVIDERS: PCP Family Medicine; Visit Provider Surgery Vascular Surgery
DX: I73.9 Peripheral vascular disease, unspecified (principal)
CPT/HCPCS: 99024

== ENCOUNTER → 2023-04-16 14:00 | Outpatient (BNVA) | payer MEDICARE, SELFPAY | PROVIDERS: PCP Family Medicine; Visit Provider Surgery Vascular Surgery | DX: I73.9 Peripheral vascular disease, unspecified (principal); Z89.511 Acquired absence of right leg below knee | CPT/HCPCS: 99212 ==

== ENCOUNTER 2023-04-29 07:29 | Day surgery (SDC) | payer MEDICARE, SELFPAY ==
[2023-04-29] VITALS (9 sets, daily range): BP systolic 141–172; BP diastolic 65–75; PULSE 59–80; RESP 16–20; TEMP 36.1–36.9; O2SAT 98–100; BMI 28.7
[2023-04-29 08:28] LABS: Glucose, Whole Blood 142 mg/dL (60-115)
[2023-04-29 08:29] LABS: MANUAL DIFF FLAG NO
[2023-04-29 08:32] LABS: Basophils Percent Auto 0.3 % (0-2); Eosinophils Absolute Auto 0.3 X10*3/uL (0.0-0.4); Eosinophils Percent Auto 3.6 % (0-4); Hematocrit 31.2 % (42.0-52.0); Hemoglobin 9.8 g/dl (14.0-18.0); Imm Gran Abs Auto 0.04 X10*3/uL (0.00-0.03); Imm Gran Pct Auto 0.5 % (0.0-0.4); Lymphocytes Percent Auto 11.4 % (20-40); Mean Corpuscular HGB Conc 31.4 g/dl (31.0-36.0); Mean Corpuscular Hemoglobin 29.9 pg (27.0-33.0); Mean Corpuscular Volume 95.1 fL (80.0-98.0); Mean Platelet Volume 9.2 fL (9.4-12.4); Monocytes Absolute Auto 0.5 X10*3/uL (0.1-1.2); Monocytes Percent Auto 6.1 % (2-11); Neutrophils Absolute Auto 6.8 x10*3/uL (2.0-8.3); Neutrophils Percent Auto 78.1 % (45-73); Platelet Count 357 X10*3/uL (160-400); Red Blood Count 3.28 X10*6/uL (4.60-5.80); Red Cell Distribution Width 13.7 % (11.0-16.0); White Blood Count 8.7 X10*3/uL (4.8-10.8)
[2023-04-29 08:42] LABS: Blood Urea Nitrogen 46 mg/dL (9-16); Estimated Glomerular Filt Rate 47
[2023-04-29] MEDS: 0.9 % Sodium Chloride 1,000 ML 100 ML IVCONT (08:46)
--- NOTE | 2023-04-29 11:25 | W.PM.OPN ---
Operative Note Operative Note Date of Service: 04/29/23 Narrative: Angiogram report from [facility] Preoperative diagnosis: Atherosclerosis of right lower extremity with nonhealing BKA stump Postoperative diagnosis: Same Procedure: 1. Ultrasound-guided left common femoral access 2. Aortogram with right lower extremity runoff 3. Right popliteal plasty Surgeon:Berry Gonzalez M.D., FACS, RPVI Bookkeeping Machine Operator:None Anesthesia: Local with moderate conscious sedation. Total intraservice moderate sedation time was 43 minutes. I monitored the patient's level of consciousness and physiologic status continuously throughout the procedure. Specimens:none Drains:none Estimated blood loss: Less than 10 ml Implant: Medtronic Impact DCB 5 x 40 Indications: Very pleasant 87-year-old gentleman presents for follow-up with nonhealing BKA stump. He had developed an ulcer and it continues to be nonhealing. He now presents for endovascular intervention The patient has signed the informed consent after reviewing risks, complications, benefits, and alternatives previously discussed with the patient. The patient was given the opportunity to ask any additional questions or voice any concerns. All questions were answered to the patient's satisfaction. Procedure in detail: Patient was brought to the angiography suite prior to which a time-out was called for patient identification and site verification. Bilateral groins were prepped and draped in the standard surgical fashion. Under ultrasound guidance left common femoral was punctured with micro puncture needle and wire. Subsequently a precision 4 Moroccan sheath was then placed. Bentson wire was advanced to the level of the aorta. 4 Moroccan Flush catheter was brought up and parked at the level of the renal arteries. Aortogram was then undertaken. Catheter was brought down to the level of the iliac bifurcation. Iliacs were subsequently imaged. Catheter was then brought in up and over to the right side SFA. Runoff study was then undertaken. He did have some behind knee popliteal stenosis. At this time 5000 units of systemic heparin was administered. Up and over 6 Moroccan sheath was then placed. We then advanced an 035 glidewire Advantage through this lesion. We 1st plasty the be behind knee popliteal P2 segment with a 5 x 40 regular balloon. We then brought in a drug coated balloon to this area. This was brought in and under 3 minutes and insufflated for 3 minutes in duration. Once this was accomplished excellent result was achieved. Catheter wire sheath was brought back to the ipsilateral side. StarClose closure device was deployed. Patient tolerated the procedure well returned to recovery with stable vitals. Interpretation of films: 1. Ultrasound demonstrates appropriate femoral puncture. Image of which was saved. 2. Aortogram demonstrates appropriate caliber aorta. Minimal disease. Appropriate take-off of the renals. 3. Iliac images demonstrate no significant disease 4. Right Leg Common femoral artery: No significant disease Profundus Femoris: No significant disease Superficial femoral artery: No significant disease Popliteal artery (p1,p2,p3): High-grade stenosis at the P2 segment. Post plasty excellent result Amputated below in this level. Conclusion: 1. Successful popliteal plasty of the right leg. 2. Anticoagulation status: Aspirin and Plavix for 6 months This note is constructed using voice recognition software. While every effort has been made to ensure accuracy, breakdown person errors may have been included. Thank you for allowing me to participate in the care of your patient. Yours sincerely, Berry Gonzalez MD, FACS, R.P.V.I.
== END 2023-04-29 13:29 | disposition home or self-care (01) ==
PROVIDERS: PCP Family Medicine; Visit Provider Surgery Vascular Surgery
DX: T87.89 Other complications of amputation stump (principal); E11.51 Type 2 diabetes mellitus with diabetic peripheral angiopathy without gangrene; L97.819 Non-pressure chronic ulcer of other part of right lower leg with unspecified severity; I70.238 Atherosclerosis of native arteries of right leg with ulceration of other part of lower leg; Z79.4 Long term (current) use of insulin; Z89.511 Acquired absence of right leg below knee; I48.91 Unspecified atrial fibrillation; E78.5 Hyperlipidemia, unspecified; Z79.82 Long term (current) use of aspirin; Z79.02 Long term (current) use of antithrombotics/antiplatelets; Z79.899 Other long term (current) drug therapy
CPT/HCPCS: 36415; 37224; 76937; 82565; 82947; 84520; 85025; 99152; 99153; A4364; C1725; C1760; C1769; C1887; J1644; J2250; J2310; J3010; Q9967

== ENCOUNTER → 2023-04-29 07:29 | Outpatient (BNV) | payer MEDICARE, SELFPAY | PROVIDERS: PCP Family Medicine; Visit Provider Surgery Vascular Surgery | DX: I70.235 Atherosclerosis of native arteries of right leg with ulceration of other part of foot (principal) | CPT/HCPCS: 37224; 75625; 75710; 76937; 99152 ==

== ENCOUNTER 2023-05-12 14:43 | Outpatient (AMB) | payer MEDICARE, SELFPAY ==
--- NOTE | 2023-05-12 14:45 | MHC.OFFVIS ---
Intake Intake Visit Reasons: 2 week follow up angio Intake Note: Patient presents for 2 week follow up after angio. States wound is still draining on right stump. States it isn't healing as well as it should but better in the last few days. Patient's is changing his dressings up to twice a day. Last change was this morning. Accompanied by: Spouse Allergies No Known Allergies Allergy (Verified 05/12/23 14:53) HPI 2 week follow up angio HPI Details Very pleasant 87-year-old gentleman presents for follow-up status post angiogram. Overall he reports that the right stump is warmer. There is some swelling and drainage from the wound. He now presents for routine follow-up. [facility] Medical History (Updated 05/13/23 @ 08:41 by Berry Gonzalez MD) Amputation foot, bilat Afib Chronic low back pain BPH (benign prostatic hyperplasia) Hyperlipidemia Type 2 diabetes mellitus Peripheral arterial disease Surgical History (Updated 04/29/23 @ 08:08 by Charlotte Carr) Hx of BKA History of lumbar fusion H/O abdominal surgery Social History Household Members: Spouse Housing: [facility] Do you presently have visiting nurse or other home services: No Alcohol intake: current Alcohol intake frequency: holidays/special occasions only Comment: pt. stated wc bound at baseline Patient Tobacco Use Status: Never used Tobacco service: No Review of Systems Const All systems reviewed & are unremarkable except as noted in HPI and below Reports no additional complaints ENT Reports Normal hearing present Card Denies chest pain, Denies chest pain at rest, Denies chest pain with activity and Denies pedal edema Resp Denies cough GI Denies abdominal pain Musc Denies abnormal gait, Denies muscle cramps and Denies radiating pain into limb Skin/Breast Denies skin ulcer and Denies wounds Neuro Reports Normal hearing present and Denies abnormal gait Psych Reports no additional complaints Physical Exam Const General: cooperative, healthy appearing and comfortable Orientation/consciousness: oriented to person, oriented to place and oriented to time HEENT Head: Yes normal to inspection Neck Neck: Yes normal visual inspection Carotids: no bruits Chest Chest palpation & inspection: normal inspection of the chest Resp Effort & Inspection: normal respiratory effort and able to speak in complete sentences Auscultation: clear to auscultation bilaterally, no crackles, no rales, no rhonchi and no wheezes Cardio Rate: regular rate Rhythm: regular rhythm Heart sounds: S1 normal heart sound present and S2 normal heart sound present Bruits: no carotid bruits Peripheral pulses: Peripheral pulses 2+ throughout GI Inspection: Yes normal to inspection Skin Other: Right BKA amp wound on lateral aspect measures 3.5 x 2 x 0.1 cm. Some mild surrounding erythema. Serous drainage. Wounds: amputation site Hair: normal Neuro General: oriented to person, oriented to place and oriented to time Cranial nerves: Yes CN's II-XII intact bilaterally and Yes Normal hearing present Cognition (Neuro): normal cognition Motor exam (neuro): 5/5 motor strength present throughout Extrem Other: venous exam: No significant superficial varicosities or spider telangiectasias, minimal edema General: No clubbing, No cyanosis and No edema Psych Appearance: grossly normal Mental Status: mental status grossly normal Speech and movement: Normal speech and movement present Assessment & Plan Assessment & Plan (1) Peripheral arterial disease: Comment: 04/29/2023 - right popliteal plasty Code(s): I73.9 - Peripheral vascular disease, unspecified Plan: In short patient has done well with endovascular intervention. He will require 6 months of aspirin and Plavix. In terms of the wound we have done local we care with Tubigrip dressings. We will start the patient on antibiotics for the surrounding cellulitis. Patient will follow up with us in approximately 2-3 weeks time. Thank you for allowing us to assist in his care. Medications: New cephalexin 500 mg PO Q12H 20 caps 0RF Coding Level of Care Code Est Pt Level 4 (85561) Diagnoses Peripheral arterial disease I73.9
== END 2023-05-12 15:50 | disposition home or self-care (01) ==
PROVIDERS: PCP Family Medicine; Visit Provider Surgery Vascular Surgery
DX: I73.9 Peripheral vascular disease, unspecified (principal); Z98.62 Peripheral vascular angioplasty status; Z89.511 Acquired absence of right leg below knee; Z89.512 Acquired absence of left leg below knee
CPT/HCPCS: 99024

== ENCOUNTER → 2023-05-12 14:43 | Outpatient (BNVA) | payer MEDICARE, SELFPAY | PROVIDERS: PCP Family Medicine; Visit Provider Surgery Vascular Surgery ==

== ENCOUNTER 2023-06-04 13:36 | Outpatient (AMB) | payer MEDICARE, SELFPAY ==
--- NOTE | 2023-06-04 13:46 | MHC.OFFVIS ---
Intake Intake Visit Reasons: 3 week wound check Intake Note: Pt presents to the office today for a 3 week wound check follow up. Pts states there is not as much drainage as before and states the green discharge isnt there anymore. Pts states his PCP put him on another dose of antibiotics. Pts states she changes his dressing 1x a day and his last dressing change was this morning. Allergies No Known Allergies Allergy (Verified 06/04/23 13:46) HPI 3 week wound check HPI Details Very pleasant 88-year-old gentleman presents for follow-up regarding his right stump. He appears to be doing significantly better. Stump is feeling warmer. Drainage has decreased. Of note in the interim he had seen his primary care doctor and had a refill on his antibiotics. Now for follow-up [facility] Medical History Amputation foot, bilat Afib Chronic low back pain BPH (benign prostatic hyperplasia) Hyperlipidemia Type 2 diabetes mellitus Peripheral arterial disease Surgical History Hx of BKA History of lumbar fusion H/O abdominal surgery Social History Household Members: Spouse Housing: [facility] Do you presently have visiting nurse or other home services: No Alcohol intake: current Alcohol intake frequency: holidays/special occasions only Comment: pt. stated wc bound at baseline Patient Tobacco Use Status: Never used Tobacco service: No Review of Systems Const All systems reviewed & are unremarkable except as noted in HPI and below Reports no additional complaints ENT Reports Normal hearing present Card Denies chest pain, Denies chest pain at rest, Denies chest pain with activity and Denies pedal edema Resp Denies cough GI Denies abdominal pain Musc Denies abnormal gait, Denies muscle cramps and Denies radiating pain into limb Skin/Breast Denies skin ulcer and Denies wounds Neuro Reports Normal hearing present and Denies abnormal gait Psych Reports no additional complaints Physical Exam Const General: cooperative, healthy appearing and comfortable Orientation/consciousness: oriented to person, oriented to place and oriented to time HEENT Head: Yes normal to inspection Neck Neck: Yes normal visual inspection Carotids: no bruits Chest Chest palpation & inspection: normal inspection of the chest Resp Effort & Inspection: normal respiratory effort and able to speak in complete sentences Auscultation: clear to auscultation bilaterally, no crackles, no rales, no rhonchi and no wheezes Cardio Rate: regular rate Rhythm: regular rhythm Heart sounds: S1 normal heart sound present and S2 normal heart sound present Bruits: no carotid bruits Peripheral pulses: Peripheral pulses 2+ throughout GI Inspection: Yes normal to inspection Skin Other: Right stump measures 3.5 x 2 cm opening with some fibrinous material on top Wounds: no wounds Hair: normal Neuro General: oriented to person, oriented to place and oriented to time Cranial nerves: Yes CN's II-XII intact bilaterally and Yes Normal hearing present Cognition (Neuro): normal cognition Motor exam (neuro): 5/5 motor strength present throughout Extrem Other: venous exam: No significant superficial varicosities or spider telangiectasias, minimal edema General: No clubbing, No cyanosis and No edema Psych Appearance: grossly normal Mental Status: mental status grossly normal Speech and movement: Normal speech and movement present Assessment & Plan Assessment & Plan (1) Status post below knee amputation of right lower extremity: Code(s): Z89.511 - Acquired absence of right leg below knee Plan: In short right stump appears to be doing relatively well. Will plan for continue dressing changes with barrier cream Telfa and an Al wrap. Patient will follow up with us in approximately 3 weeks time thank you for allowing us to assist in his care Coding Level of Care Code Est Pt Level 3 (81838) Diagnoses Status post below knee amputation of right lower extremity Z89.511
== END 2023-06-04 14:22 | disposition home or self-care (01) ==
PROVIDERS: PCP Family Medicine; Visit Provider Surgery Vascular Surgery
DX: Z89.511 Acquired absence of right leg below knee (principal)
CPT/HCPCS: 99213

== ENCOUNTER → 2023-06-04 13:36 | Outpatient (BNVA) | payer MEDICARE, SELFPAY | PROVIDERS: PCP Family Medicine; Visit Provider Surgery Vascular Surgery | DX: Z48.01 Encounter for change or removal of surgical wound dressing (principal); Z89.511 Acquired absence of right leg below knee | CPT/HCPCS: 99212 ==

== ENCOUNTER → 2023-07-07 13:08 | Outpatient (BNVA) | payer MEDICARE, SELFPAY | PROVIDERS: PCP Family Medicine; Visit Provider Surgery Vascular Surgery | DX: Z47.81 Encounter for orthopedic aftercare following surgical amputation (principal); Z89.511 Acquired absence of right leg below knee | CPT/HCPCS: 99212 ==

== ENCOUNTER 2023-07-07 13:10 | Outpatient (AMB) | payer MEDICARE, SELFPAY ==
--- NOTE | 2023-07-07 13:09 | A.OFFVIS_ITS ---
Intake Visit Reasons: 3 week wound check Intake Note: 1 mo follow up Right BKA non-healing amp stump, pt states he was seen by PCP who did culture and prescribed Cipro as an ABX instead of keflex. Accompanied by: Spouse Allergies No Known Allergies Allergy (Verified 07/07/23 13:13) HPI HPI 3 week wound check: Details: Very pleasant 88-year-old gentleman presents for follow-up regarding nonhealing right lower extremity stump. He appears to be doing better. Stump feels warm. In addition he had seen his primary care in the interim. The wound had been c ultured and he was started on Cipro. He now presents for follow-up. [facility] Medical History Amputation foot, bilat Afib Chronic low back pain BPH (benign prostatic hyperplasia) Hyperlipidemia Type 2 diabetes mellitus Peripheral arterial disease Surgical History Hx of BKA History of lumbar fusion H/O abdominal surgery Social History Household Members: Spouse Housing: [facility] Do you presently have visiting nurse or other home services: No Alcohol intake: current Alcohol intake frequency: holidays/special occasions only Comment: pt. stated wc bound at baseline Patient Tobacco Use Status: Never used Tobacco service: No Review of Systems Const All systems reviewed & are unremarkable except as noted in HPI and below Reports no additional complaints ENT Reports Normal hearing present Card Denies chest pain, Denies chest pain at rest, Denies chest pain with activity and Denies pedal edema Resp Denies cough GI Denies abdominal pain Musc Denies abnormal gait, Denies muscle cramps and Denies radiating pain into limb Skin/Breast Denies skin ulcer and Denies wounds Neuro Reports Normal hearing present and Denies abnormal gait Psych Reports no additional complaints Physical Exam Const General: cooperative, healthy appearing and comfortable Orientation/consciousness: oriented to person, oriented to place and oriented to time HEENT Head: Yes normal to inspection Neck Neck: Yes normal visual inspection Carotids: no bruits Chest Chest palpation & inspection: normal inspection of the chest Resp Effort & Inspection: normal respiratory effort and able to speak in complete sentences Auscultation: clear to auscultation bilaterally, no crackles, no rales, no rhonchi and no wheezes Cardio Rate: regular rate Rhythm: regular rhythm Heart sounds: S1 normal heart sound present and S2 normal heart sound present Bruits: no carotid bruits Peripheral pulses: Peripheral pulses 2+ throughout GI Inspection: Yes normal to inspection Skin Other: Right lateral stump measures 2.5 x 2 x 0.1 cm Wounds: amputation site Hair: normal Neuro General: oriented to person, oriented to place and oriented to time Cranial nerves: Yes CN's II-XII intact bilaterally and Yes Normal hearing present Cognition (Neuro): normal cognition Motor exam (neuro): 5/5 motor strength present throughout Extrem Other: venous exam: No significant superficial varicosities or spider telangiectasias, minimal edema General: No clubbing, No cyanosis and No edema Psych Appearance: grossly normal Mental Status: mental status grossly normal Speech and movement: Normal speech and movement present Assessment & Plan Assessment & Plan (1) Status post below knee amputation of right lower extremity: Code(s): Z89.511 - Acquired absence of right leg below knee Category: Surgical Plan: In short patient appears to be doing relatively well with the status of his stump. It was cleaned. Local dressing was applied. He will follow up with us in approximately 4 weeks for routine stump surveillance. And wound check. Thank you for allowing us to assist in his care. If there are any questions or concerns please do not hesitate to contact us. Coding Level of Care Code Est Pt Level 3 (32942) Diagnoses Status post below knee amputation of right lower extremity Z89.511
== END 2023-07-07 13:48 | disposition home or self-care (01) ==
PROVIDERS: PCP Family Medicine; Visit Provider Surgery Vascular Surgery
DX: Z89.511 Acquired absence of right leg below knee (principal)
CPT/HCPCS: 99213

== ENCOUNTER 2023-08-04 14:00 | Outpatient (AMB) | payer MEDICARE, SELFPAY ==
--- NOTE | 2023-08-04 14:03 | A.OFFVIS_ITS ---
Intake Visit Reasons: 4 week wound check Intake Note: 1 mo follow up Right BKA non-healing amp incision check. Pt states still some drainage, but is getting smaller. Also states that left BKA stump developed a blister and ruptured but is healing. Changes dressing daily. Accompanied by: Spouse Allergies No Known Allergies Allergy (Verified 08/04/23 14:10) HPI HPI 4 week wound check: Details: Very pleasant 88-year-old gentleman presents for follow-up regarding stump check. He had a nonhealing right extremity stump. It continues to do well. Had a wound culture and was started on Cipro. It continues to improve slowly. Local wound care has been performed by his who has been extremely helpful in his overall care. [facility] Medical History Amputation foot, bilat Afib Chronic low back pain BPH (benign prostatic hyperplasia) Hyperlipidemia Type 2 diabetes mellitus Peripheral arterial disease Surgical History Hx of BKA History of lumbar fusion H/O abdominal surgery Social History Household Members: Spouse [facility] Do you presently have visiting nurse or other home services: No Alcohol intake: current Alcohol intake frequency: holidays/special occasions only Comment: pt. stated wc bound at baseline Patient Tobacco Use Status: Never used Tobacco service: No Review of Systems Const All systems reviewed & are unremarkable except as noted in HPI and below Reports no additional complaints ENT Reports Normal hearing present Card Denies chest pain, Denies chest pain at rest, Denies chest pain with activity and Denies pedal edema Resp Denies cough GI Denies abdominal pain Musc Denies abnormal gait, Denies muscle cramps and Denies radiating pain into limb Skin/Breast Denies skin ulcer and Denies wounds Neuro Reports Normal hearing present and Denies abnormal gait Psych Reports no additional complaints Physical Exam Const General: cooperative, healthy appearing and comfortable Orientation/consciousness: oriented to person, oriented to place and oriented to time HEENT Head: Yes normal to inspection Neck Neck: Yes normal visual inspection Carotids: no bruits Chest Chest palpation & inspection: normal inspection of the chest Resp Effort & Inspection: normal respiratory effort and able to speak in complete sentences Auscultation: clear to auscultation bilaterally, no crackles, no rales, no rhonchi and no wheezes Cardio Rate: regular rate Rhythm: regular rhythm Heart sounds: S1 normal heart sound present and S2 normal heart sound present Bruits: no carotid bruits Peripheral pulses: Peripheral pulses 2+ throughout GI Inspection: Yes normal to inspection Skin Other: Left amp well healed Right amp lateral aspect wound measures 2.5 x 1 x 0.1 cm good granulation bed Wounds: amputation site Hair: normal Neuro General: oriented to person, oriented to place and oriented to time Cranial nerves: Yes CN's II-XII intact bilaterally and Yes Normal hearing present Cognition (Neuro): normal cognition Motor exam (neuro): 5/5 motor strength present throughout Extrem Other: venous exam: No significant superficial varicosities or spider telangiectasias, minimal edema General: No clubbing, No cyanosis and No edema Psych Appearance: grossly normal Mental Status: mental status grossly normal Speech and movement: Normal speech and movement present Assessment & Plan Assessment & Plan (1) Peripheral arterial disease: Comment: 04/29/2023 - right popliteal plasty Code(s): I73.9 - Peripheral vascular disease, unspecified Category: Medical Plan: In short patient appears to be doing well with his stump. Local wound care appears to be working and it is slowly improving. We will plan for routine 6 week surveillance check. Should there be any interval issues happy to see him back sooner. Thank you for allowing us to assist in his care. If there are any questions or concerns please do not hesitate to contact us Coding Level of Care Code Est Pt Level 3 (38134) Diagnoses Peripheral arterial disease I73.9
== END 2023-08-04 14:31 | disposition home or self-care (01) ==
PROVIDERS: PCP Family Medicine; Visit Provider Surgery Vascular Surgery
DX: I73.9 Peripheral vascular disease, unspecified (principal)
CPT/HCPCS: 99213

== ENCOUNTER → 2023-08-04 14:00 | Outpatient (BNVA) | payer MEDICARE, SELFPAY | PROVIDERS: PCP Family Medicine; Visit Provider Surgery Vascular Surgery | DX: I73.9 Peripheral vascular disease, unspecified (principal) | CPT/HCPCS: 99212 ==

== ENCOUNTER 2023-09-23 13:18 | Outpatient (AMB) | payer MEDICARE, SELFPAY ==
--- NOTE | 2023-09-23 13:25 | MHC.OFFVIS ---
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 Still has a small opening on his right stump, dry dressing PRN. Accompanied by: Spouse Allergies adhesive tape Adverse Reaction (Intermediate, Verified 09/23/23 13:31) Blister HPI HPI 6w wound check: Details: Very pleasant 88-year-old gentleman presents for follow-up regarding right lower extremity stump. He has been doing extremely well with this. Continues to decrease in size the nonhealing wound and he has noticed decreased drainage as well. was present at the time of exam as she does the overall care. Now for routine follow-up. [facility] Medical History Amputation foot, bilat Afib Chronic low back pain BPH (benign prostatic hyperplasia) Hyperlipidemia Type 2 diabetes mellitus Peripheral arterial disease Surgical History Hx of BKA History of lumbar fusion H/O abdominal surgery Social History Household Members: Spouse Housing: [facility] Do you presently have visiting nurse or other home services: No Alcohol intake: current Alcohol intake frequency: holidays/special occasions only Comment: pt. stated wc bound at baseline Patient Tobacco Use Status: Never used Tobacco service: No Review of Systems Const All systems reviewed & are unremarkable except as noted in HPI and below Reports no additional complaints ENT Reports Normal hearing present Card Denies chest pain, Denies chest pain at rest, Denies chest pain with activity and Denies pedal edema Resp Denies cough GI Denies abdominal pain Musc Denies abnormal gait, Denies muscle cramps and Denies radiating pain into limb Skin/Breast Denies skin ulcer and Denies wounds Neuro Reports Normal hearing present and Denies abnormal gait Psych Reports no additional complaints Physical Exam Const General: cooperative, healthy appearing and comfortable Orientation/consciousness: oriented to person, oriented to place and oriented to time HEENT Head: Yes normal to inspection Neck Neck: Yes normal visual inspection Carotids: no bruits Chest Chest palpation & inspection: normal inspection of the chest Resp Effort & Inspection: normal respiratory effort and able to speak in complete sentences Auscultation: clear to auscultation bilaterally, no crackles, no rales, no rhonchi and no wheezes Cardio Rate: regular rate Rhythm: regular rhythm Heart sounds: S1 normal heart sound present and S2 normal heart sound present Bruits: no carotid bruits Peripheral pulses: Peripheral pulses 2+ throughout GI Inspection: Yes normal to inspection Skin Other: Right amp lateral aspect wound measures 1.5 x 0.8 x 0.2 cm. This is a significant decrease from prior visit Wounds: no wounds Hair: normal Neuro General: oriented to person, oriented to place and oriented to time Cranial nerves: Yes CN's II-XII intact bilaterally and Yes Normal hearing present Cognition (Neuro): normal cognition Motor exam (neuro): 5/5 motor strength present throughout Extrem Other: venous exam: No significant superficial varicosities or spider telangiectasias, minimal edema General: No clubbing, No cyanosis and No edema Psych Appearance: grossly normal Mental Status: mental status grossly normal Speech and movement: Normal speech and movement present Assessment & Plan Assessment & Plan (1) Peripheral arterial disease: Comment: 04/29/2023 - right popliteal plasty Code(s): I73.9 - Peripheral vascular disease, unspecified Category: Medical Plan: In short patient is doing extremely well with his stump. Local wound care appears to be slowly working. He will be scheduled for routine 6 week surveillance check. Should there be any interval issues happy to see him back sooner. Thank you for allowing us to assist in his care Coding Level of Care Code Est Pt Level 3 (41152) Diagnoses Peripheral arterial disease I73.9
== END 2023-09-23 13:58 | disposition home or self-care (01) ==
PROVIDERS: PCP Family Medicine; Visit Provider Surgery Vascular Surgery
DX: I73.9 Peripheral vascular disease, unspecified (principal)
CPT/HCPCS: 99213

== ENCOUNTER → 2023-09-23 13:18 | Outpatient (BNVA) | payer MEDICARE, SELFPAY | PROVIDERS: PCP Family Medicine; Visit Provider Surgery Vascular Surgery | DX: T87.89 Other complications of amputation stump (principal); I73.9 Peripheral vascular disease, unspecified | CPT/HCPCS: 99212 ==

== ENCOUNTER 2023-11-05 13:19 | Outpatient (AMB) | payer MEDICARE, SELFPAY ==
--- NOTE | 2023-11-05 13:20 | MHC.OFFVIS ---
Intake Visit Reasons: 6w wound check Intake Note: follow up Right BKA stump non-healing wound. Just has a band-aid over small wound. Accompanied by: Spouse Allergies adhesive tape Adverse Reaction (Intermediate, Verified 11/05/23 13:25) Blister HPI HPI 6w wound check: Details: Very pleasant 88-year-old gentleman presents for follow-up regarding right lower extremity stump. Reports he is doing relatively well. He has generalized macular papular rash that has developed throughout his body. More noticeable in the stump area which the family complains about. Other than that he has been doing fairly well. Stump has this small right lateral opening but otherwise no other interval issues. Appears to be doing fairly well [facility] Medical History Amputation foot, bilat Afib Chronic low back pain BPH (benign prostatic hyperplasia) Hyperlipidemia Type 2 diabetes mellitus Peripheral arterial disease Surgical History Hx of BKA History of lumbar fusion H/O abdominal surgery Social History Household Members: Spouse Housing: [facility] Do you presently have visiting nurse or other home services: No Alcohol intake: current Alcohol intake frequency: holidays/special occasions only Comment: pt. stated wc bound at baseline Patient Tobacco Use Status: Never used Tobacco service: No Review of Systems Const All systems reviewed & are unremarkable except as noted in HPI and below Reports no additional complaints ENT Reports Normal hearing present Card Denies chest pain, Denies chest pain at rest, Denies chest pain with activity and Denies pedal edema Resp Denies cough GI Denies abdominal pain Musc Denies abnormal gait, Denies muscle cramps and Denies radiating pain into limb Skin/Breast Denies skin ulcer and Denies wounds Neuro Reports Normal hearing present and Denies abnormal gait Psych Reports no additional complaints Physical Exam Const General: cooperative, healthy appearing and comfortable Orientation/consciousness: oriented to person, oriented to place and oriented to time HEENT Head: Yes normal to inspection Neck Neck: Yes normal visual inspection Carotids: no bruits Chest Chest palpation & inspection: normal inspection of the chest Resp Effort & Inspection: normal respiratory effort and able to speak in complete sentences Auscultation: clear to auscultation bilaterally, no crackles, no rales, no rhonchi and no wheezes Cardio Rate: regular rate Rhythm: regular rhythm Heart sounds: S1 normal heart sound present and S2 normal heart sound present Bruits: no carotid bruits Peripheral pulses: Peripheral pulses 2+ throughout GI Inspection: Yes normal to inspection Skin Other: Right lateral stump 0.5 cm open ulceration Wounds: no wounds Hair: normal Neuro General: oriented to person, oriented to place and oriented to time Cranial nerves: Yes CN's II-XII intact bilaterally and Yes Normal hearing present Cognition (Neuro): normal cognition Motor exam (neuro): 5/5 motor strength present throughout Extrem Other: venous exam: No significant superficial varicosities or spider telangiectasias, minimal edema General: No clubbing, No cyanosis and No edema Psych Appearance: grossly normal Mental Status: mental status grossly normal Speech and movement: Normal speech and movement present Assessment & Plan Assessment & Plan (1) Peripheral arterial disease: Comment: 04/29/2023 - right popliteal plasty Code(s): I73.9 - Peripheral vascular disease, unspecified Category: Medical Plan: In short right stump appears to be doing relatively well. Incision is nearly healed. I do believe that the maculopapular rash throughout may be more allergic in nature. Appears to be doing relatively well otherwise. Continue with local wound care protective dressings and he will follow up with us in approximately 6 weeks time. Thank you for allowing us to assist in his care. If there are any questions or concerns please do not hesitate to contact us Please note a longitudinal relationship has been created with the patient and we have been following and surveillance this chronic condition. Coding Level of Care Code Est Pt Level 3 (73655) Complex EM visit Add On G2211 Diagnoses Peripheral arterial disease I73.9
== END 2023-11-05 14:35 | disposition home or self-care (01) ==
PROVIDERS: PCP Family Medicine; Visit Provider Surgery Vascular Surgery
DX: I73.9 Peripheral vascular disease, unspecified (principal)
CPT/HCPCS: 99213; G2211

== ENCOUNTER → 2023-11-05 13:19 | Outpatient (BNVA) | payer MEDICARE, SELFPAY | PROVIDERS: PCP Family Medicine; Visit Provider Surgery Vascular Surgery | DX: I73.9 Peripheral vascular disease, unspecified (principal) | CPT/HCPCS: 99212 ==

== ENCOUNTER 2023-12-17 13:12 | Outpatient (AMB) | payer MEDICARE, SELFPAY ==
--- NOTE | 2023-12-17 13:15 | A.OFFVIS_ITS ---
Intake Visit Reasons: 6 week follow up Intake Note: 6 wk follow up Right BKA non-healing amp. Has very superficial small wound, non- drainage Accompanied by: Spouse Allergies adhesive tape Adverse Reaction (Intermediate, Verified 12/17/23 13:22) Blister HPI HPI 6 week follow up: Details: Very pleasant 88-year-old gentleman presents for follow-up regarding right lower extremity nonhealing stump. It has gone on to nearly healed. There is a small little opening on the lateral aspect. Very minimal drainage. He reports he has been remaining active. Most recently they went to their grandson's wedding. He continues to do his activities. [facility] Medical History Amputation foot, bilat Afib Chronic low back pain BPH (benign prostatic hyperplasia) Hyperlipidemia Type 2 diabetes mellitus Peripheral arterial disease Surgical History Hx of BKA History of lumbar fusion H/O abdominal surgery Social History Household Members: Sp[facility] Do you presently have visiting nurse or other home services: No Alcohol intake: current Alcohol intake frequency: holidays/special occasions only Comment: pt. stated wc bound at baseline Patient Tobacco Use Status: Never used Tobacco service: No Review of Systems Const All systems reviewed & are unremarkable except as noted in HPI and below Reports no additional complaints ENT Reports Normal hearing present Card Denies chest pain, Denies chest pain at rest, Denies chest pain with activity and Denies pedal edema Resp Denies cough GI Denies abdominal pain Musc Denies abnormal gait, Denies muscle cramps and Denies radiating pain into limb Skin/Breast Denies skin ulcer and Denies wounds Neuro Reports Normal hearing present and Denies abnormal gait Psych Reports no additional complaints Physical Exam Const General: cooperative, healthy appearing and comfortable Orientation/consciousness: oriented to person, oriented to place and oriented to time HEENT Head: Yes normal to inspection Neck Neck: Yes normal visual inspection Carotids: no bruits Chest Chest palpation & inspection: normal inspection of the chest Resp Effort & Inspection: normal respiratory effort and able to speak in complete sentences Auscultation: clear to auscultation bilaterally, no crackles, no rales, no rhonchi and no wheezes Cardio Rate: regular rate Rhythm: regular rhythm Heart sounds: S1 normal heart sound present and S2 normal heart sound present Bruits: no carotid bruits Peripheral pulses: Peripheral pulses 2+ throughout GI Inspection: Yes normal to inspection Skin Other: Left BKA well-healed Right BKA lateral spot proximally 0.2 cm in diameter relatively clean Wounds: amputation site Hair: normal Neuro General: oriented to person, oriented to place and oriented to time Cranial nerves: Yes CN's II-XII intact bilaterally and Yes Normal hearing present Cognition (Neuro): normal cognition Motor exam (neuro): 5/5 motor strength present throughout Extrem Other: venous exam: No significant superficial varicosities or spider telangiectasias, minimal edema General: No clubbing, No cyanosis and No edema Psych Appearance: grossly normal Mental Status: mental status grossly normal Speech and movement: Normal speech and movement present Assessment & Plan Assessment & Plan (1) Status post below knee amputation of right lower extremity: Code(s): Z89.511 - Acquired absence of right leg below knee Category: Surgical Plan: In short patient has a nonhealing ulcer of the right BKA stump. It continues to decrease in size. We did discussed local wound care. At the current time probably up dry protective dressing will be enough in addition I did add an Al wrap to get a little better compression as it did seem slightly edematous. The patient will follow up with us in approximately 6 weeks' time. I am hopeful that we would be healed by then. Thank you for allowing us to assist in this kind meds care. If there are any questions or concerns please do not hesitate to contact us Please note a longitudinal relationship has been created with the patient and we have been following and surveillance this chronic condition. Coding Level of Care Code Est Pt Level 3 (06801) Complex EM visit Add On G2211 Diagnoses Status post below knee amputation of right lower extremity Z89.511
== END 2023-12-17 13:42 | disposition home or self-care (01) ==
PROVIDERS: PCP Family Medicine; Visit Provider Surgery Vascular Surgery
DX: Z89.511 Acquired absence of right leg below knee (principal)
CPT/HCPCS: 99213; G2211

== ENCOUNTER → 2023-12-17 13:12 | Outpatient (BNVA) | payer MEDICARE, SELFPAY | PROVIDERS: PCP Family Medicine; Visit Provider Surgery Vascular Surgery | DX: L97.819 Non-pressure chronic ulcer of other part of right lower leg with unspecified severity (principal); T87.89 Other complications of amputation stump; Z89.511 Acquired absence of right leg below knee | CPT/HCPCS: 99212 ==

== ENCOUNTER 2024-01-28 13:01 | Outpatient (AMB) | payer MEDICARE, SELFPAY ==
--- NOTE | 2024-01-28 13:35 | MHC.OFFVIS ---
Intake Visit Reasons: 6 week wound check Intake Note: 6 week follow up Right BKA stump check non healing wound, now healed Accompanied by: Self / Same As Patient Allergies adhesive tape Adverse Reaction (Intermediate, Verified 01/28/24 13:36) Blister HPI HPI 6 week wound check: Details: Very pleasant 88-year-old gentleman who had undergone right BKA with us had a nonhealing stump. It actually has gone on to heal. He is doing extremely well. Has been quite active. He most recently had gone to his grandson's wedding. They are now looking forward to the . He now presents for routine stump check [facility] Medical History Amputation foot, bilat Afib Chronic low back pain BPH (benign prostatic hyperplasia) Hyperlipidemia Type 2 diabetes mellitus Peripheral arterial disease Surgical History Hx of BKA History of lumbar fusion H/O abdominal surgery Social History Household Members: Sp[facility] Do you presently have visiting nurse or other home services: No Alcohol intake: current Alcohol intake frequency: holidays/special occasions only Comment: pt. stated wc bound at baseline Patient Tobacco Use Status: Never used Tobacco service: No Review of Systems Const All systems reviewed & are unremarkable except as noted in HPI and below Reports no additional complaints ENT Reports Normal hearing present Card Denies chest pain, Denies chest pain at rest, Denies chest pain with activity and Denies pedal edema Resp Denies cough GI Denies abdominal pain Musc Denies abnormal gait, Denies muscle cramps and Denies radiating pain into limb Skin/Breast Denies skin ulcer and Denies wounds Neuro Reports Normal hearing present and Denies abnormal gait Psych Reports no additional complaints Physical Exam Const General: cooperative, healthy appearing and comfortable Orientation/consciousness: oriented to person, oriented to place and oriented to time HEENT Head: Yes normal to inspection Neck Neck: Yes normal visual inspection Carotids: no bruits Chest Chest palpation & inspection: normal inspection of the chest Resp Effort & Inspection: normal respiratory effort and able to speak in complete sentences Auscultation: clear to auscultation bilaterally, no crackles, no rales, no rhonchi and no wheezes Cardio Rate: regular rate Rhythm: regular rhythm Heart sounds: S1 normal heart sound present and S2 normal heart sound present Bruits: no carotid bruits Peripheral pulses: Peripheral pulses 2+ throughout GI Inspection: Yes normal to inspection Skin Wounds: amputation site (Bilateral BKA well-healed) Hair: normal Neuro General: oriented to person, oriented to place and oriented to time Cranial nerves: Yes CN's II-XII intact bilaterally and Yes Normal hearing present Cognition (Neuro): normal cognition Motor exam (neuro): 5/5 motor strength present throughout Extrem Other: venous exam: No significant superficial varicosities or spider telangiectasias, minimal edema General: No clubbing, No cyanosis and No edema Psych Appearance: grossly normal Mental Status: mental status grossly normal Speech and movement: Normal speech and movement present Assessment & Plan Assessment & Plan (1) Peripheral arterial disease: Comment: 10/02/2022 - right BKA 04/29/2023 - right popliteal plasty Code(s): I73.9 - Peripheral vascular disease, unspecified Category: Medical Plan: in short patient has gone on to heal his right stump. He is doing extremely well. We discussed routine risk factor modification and the importance of him trying to remain active as well. he has done extremely well. He will follow up with us on an as-needed basis. Thank you for allowing us to take care of this very kind gentleman. Wish him the best luck in the future. Coding Level of Care Code Est Pt Level 3 (70852) Diagnoses Peripheral arterial disease I73.9
== END 2024-01-28 14:13 | disposition home or self-care (01) ==
LOC: HO.HVS 13:01
PROVIDERS: PCP Family Medicine; Visit Provider Surgery Vascular Surgery
DX: I73.9 Peripheral vascular disease, unspecified (principal)
CPT/HCPCS: 99213

== ENCOUNTER → 2024-01-28 13:01 | Outpatient (BNVA) | payer MEDICARE, SELFPAY | PROVIDERS: PCP Family Medicine; Visit Provider Surgery Vascular Surgery | DX: I73.9 Peripheral vascular disease, unspecified (principal); Z89.511 Acquired absence of right leg below knee | CPT/HCPCS: 99212 ==